=== PATIENT | male | born 1945 | race Caucasian/White ===

== ENCOUNTER 2020-07-08 16:47 | Inpatient (IN) ==
[2020-07-08 17:14] LABS: Basophils % (auto) 1.9 %; Eosinophils # (auto) 0.11 K/uL (0-0.5); Eosinophils % (auto) 2.1 %; Hematocrit (blood only) 40.2 % (42-52); Hemoglobin 13.9 g/dL (14.0-18.0); Immature Granulocytes # (auto) 0.01 K/uL (0.00-0.02); Immature Granulocytes % (auto) 0.2 %; Lymphocytes # (auto) 1.32 K/uL (1.2-3.4); Mean Corpuscular Hemoglobin 31.7 pg (25-34); Mean Corpuscular Hgb Conc 34.6 g/dL (32-36); Mean Corpuscular Volume 91.6 fL (80-100); Monocytes # (auto) 0.39 K/uL (0.11-0.59); Monocytes % (auto) 7.4 %; Neutrophils # (auto) 3.34 K/uL (1.4-6.5); Neutrophils % (auto) 63.4 %; Platelet Count 178 K/uL (130-400); RDW Coefficient of Variation 13.4 % (11.5-14.5); RDW Standard Deviation 44.6 fL (36.4-46.3); Red Blood Count 4.39 M/uL (4.7-6.1); White Blood Count 5.27 K/uL (4.8-10.8)
[2020-07-08 17:46] LABS: Alanine Aminotransferase 41 U/L (12-78); Albumin Globulin Ratio 1.2 (0.9-2); Albumin Level 4.3 gm/dl (3.4-5.0); Alkaline Phosphatase 266 U/L (45-117); Aspartate Aminotransferase 30 U/L (15-37); BUN Creatinine Ratio 13.4 (10-20); Bilirubin,Total 0.6 mg/dl (0.2-1); Blood Urea Nitrogen 61 mg/dl (7-18); Carbon Dioxide 17 mmol/L (21-32); Chloride 107 mmol/L (98-107); Creatinine Clr Calc Pharmacy 14.8 ml/min; Est GFR (African American) 13.6 ml/min; Est GFR (Non-African American) 11.7 ml/min; Globulin 3.5 gm/dl (2.5-4.0); Glucose 86 mg/dl (70-99); Potassium 5.3 mmol/L (3.5-5.1); Sodium 132 mmol/L (136-145); Total Protein 7.8 gm/dl (6.4-8.2)
[2020-07-08] MEDS ORDERED: SODIUM CHLORIDE 0.9% 500 ML IV ONE (18:23)
[2020-07-08 18:54] LABS: Creatine Kinase 98 U/L (39-308)
[2020-07-08 18:59] LABS: Creatine Kinase MB 4.2 ng/ml (0.5-3.6); NT Pro B Type Natriuretic Pept 127 pg/ml (0-1800); Troponin I < 0.015 ng/ml (0-0.045)
--- NOTE | 2020-07-08 19:06 | XRay Report ---
XR chest 1V portable HISTORY: 74 years-old Male Pt c/o SOB acute shortness of breath COMPARISON: CT abdomen 01/13/2010, chest radiograph 04/23/2007. TECHNIQUE: Portable AP view of the chest FINDINGS: Cardiac silhouette is enlarged. Mild chronic interstitial coarsening of the lung bases. No pneumothor ax, large pleural effusion or overt pulmonary edema. Left lung base opacities. Degenerative changes o f the shoulders and spine. IMPRESSION: 1. Mild left lung base opacities are new from comparison suggestive of atelectasis versus pneumonia. 2. Cardiomegaly without pulmonary edema. ACT 112: Negative or not required by law. The above report was generated using voice recognition software. It may contain grammatical, syntax o r spelling errors. Electronically signed by: Garrett Gonzalez M.D. 07/08/2020 7:04 PM
--- NOTE | 2020-07-08 19:40 | History & Physical Report ---
Date of Service July 08, 2020 Assessment & Plan (1) Acute renal failure superimposed on stage 4 chronic kidney disease: (2) Abdominal pain: (3) Hyperkalemia: (4) HTN (hypertension): (5) GERD (gastroesophageal reflux disease): (6) Hyponatremia: DVT PFx, IVFs, Renal eval, CT pending, Bladder scan 31 ml, Hold Lasix and BANDAR. Stress test outpatient History of Present Illness Chief Complaint: Abnormal labs Primary Care Provider: Neil Whitlock, DO 74 yo male c PMH stage 4 CKD, HTN, GERD, and Crohn's who came in sec to abnormal labs. He was having abd pain occasionally c deep breaths in RLQ above his colostomy. He went to his PCP after several days of dealing with these pains and his bloodwork came back and was abnormal with hyperkalemia and acute on chronic renal failure. His Singing Teacher encouraged him to go to the ER. He also had a stress test orderded during his PCP visit. PMH-Crohn's, HTN, GERD, CKD4, Pulm nodule, Hyper PTH, ED PSH-Bowel Resection sec to Crohn's, Appy, Anahi, Inguinal hernia, Colostomy SOC-Quit tob as a teen, rare alcohol FH-Father UC, Mother of Brain Tumor, Sister c Breast CA living Allergies Allergy/AdvReac Type Severity Reaction Status Date / Time oxycodone AdvReac Intermediate MENTAL Verified 07/08/20 18:54 STATUS CHANGES, HALLUCINATIONS Home Medications Medication Instructions Recorded Confirmed Type allopurinol 200 mg PO DAILY 07/08/20 07/08/20 History atenolol 25 mg PO DAILY 07/08/20 07/08/20 History cholecalciferol (vitamin D3) 50 mcg PO DAILY 07/08/20 07/08/20 History [Vitamin D3] cholestyramine (with sugar) See Rx Instructions .ROUTE .COMPLEX 07/08/20 07/08/20 History furosemide 10 mg PO 3XWK 07/08/20 07/08/20 History gabapentin See Rx Instructions .ROUTE .COMPLEX 07/08/20 07/08/20 History ketoconazole 1 applic TOPICAL . Q 3 DAYS 07/08/20 07/08/20 History lisinopril 5 mg PO DAILY 07/08/20 07/08/20 History omeprazole 20 mg PO DAILY 07/08/20 07/08/20 History tramadol 50 mg PO Q6 PRN 07/08/20 07/08/20 History Past Med/Surg History Social History Smoking Status: Never smoker Preferred Language: Faroese Feels Safe at Home: Yes Immunizations: Checked Review of Systems Review of Systems: +Abd Pain RLQ near colostomy bag Physical Exam Physical Exam: ROS-No Headache, No Visual Changes, No Nausea, No Vomiting, No Fever, No Chills, No Neck Pain or Stiffness, No Chest Pain, No Palpitations, No SOB, No HA, No Cough, No Sputum, No Wheezing, + Abdominal Pain, No Diarrhea, No Hematemesis, No Hemoptysis, No Unexpected Weight Loss, No Flank pain, No Melena, No Hematochezia, No Frequency, No Urgency, No Burning, No Hematuria, No Rashes, No Diaphoresis. Appetite is Normal Physical Exam Gen-AAO x 3, NAD, Afebrile Head-NCAT, EOMI, PERRLA, Anicteric Sclera, No Posterior Pharyngeal Erythema Neck-Supple, No JVD, No Thyromegaly, No Masses, No LAD, No Bruits Lungs-Clear to Auscultation Bilaterally, No Rales, No Rhonchi, No Wheezing, No Crepitus Chest-No S4, +S1, +S2, No S3, No Murmurs, No Rubs, No Gallops, No Ectopy Abdomen-Soft, Bowel Sounds Present, Non Tender, Non Distended, No Hepatomegaly, No Splenomegaly, No Palpable Masses, No Rebound, No Rigidity, No Guarding, +Colostomy Bag RLQ Musculoskeletal-Full Range of Motion Bilaterally, No CVAT Extremities-No Cyanosis, No Clubbing, No Edema Nuero-Cranial Nerves II-XII grossly intact, Motor WNL, DTRs WNL, Strength WNL, Non Focal Psych-Normal Mood Results & Data Results & Data ([facility]) Vital Signs (Past 12 Hours) Vital Signs Temp Pulse Pulse Resp BP BP Pulse Ox 07/08/20 18:30 72 18 117/66 100 07/08/20 16:50 36.3 C L 60 18 126/71 97 Allergies oxycodone Adverse Reaction (Intermediate, Verified 07/08/20 18:54) MENTAL STATUS CHANGES, HALLUCINATIONS Height/Weight/Isolation Height 5 ft 11 in Weight 82.3 kg Chemistry 07/08/20 16:58 Sodium 132 L Potassium 5.3 H Chloride 107 Carbon Dioxide 17 L Anion Gap 7.0 BUN 61 H Creatinine 4.53 H* Glucose 86 Code Status & VTE Plan VTE Prophylaxis Plan VTE Prophylaxis will be ordered: Yes
[2020-07-08 20:28] LABS: Appearance Urine Clear (Clear); Bilirubin Urine Negative (Negative); Blood Urine Negative (Negative); Color Urine Yellow; Glucose Urine UA Negative (Negative); Ketones Urine Negative (Negative); Leukocyte Esterase Urine Negative (Negative); Nitrite Urine Negative (Negative); Protein Urine Negative (Negative); Urobilinogen Urine Negative (Negative)
--- NOTE | 2020-07-08 20:30 | CT Scan Report ---
ABDOMEN AND PELVIS CT WITHOUT CONTRAST CT DOSE: 388.69 mGy.cm HISTORY: Acute left upper quadrant abdominal pain. Prior total proctocolectomy. Pt c/o LUQ abd pain TECHNIQUE: Multiaxial CT images of the abdomen and pelvis were performed without contrast. A dose lo wering technique was utilized adhering to the principles of ALARA. COMPARISON STUDY: CT abdomen and pelvis 01/13/2010, CT abdomen pelvis 03/29/2007 FINDINGS: The imaged inferior cardiac chambers are unremarkable. Mild bibasilar atelectasis/scarring. 8 mm fissural nodule of the left lung base, image 20 is unchanged from comparison suggestive of renee gn etiology. No pneumatosis or pneumoperitoneum. The unenhanced spleen, adrenal glands, pancreas and liver appear unremarkable. Cholecystectomy. Unremarkable kidneys. No hydronephrosis. Unchanged appearance of the urinary bladder and prostate. No abdominal aortic aneurysm. There is no adenopathy. No bowel obstruction or bowel wall thickening. Postoperative changes of total proctocolectomy redemon strated with right lower quadrant ileostomy. No bowel obstruction or bowel wall thickening. No ascite s or mesenteric inflammation. Unremarkable soft tissues. No acute fracture. Chronic appearing T12 com pression deformity, new from the 2010 comparison IMPRESSION: 1. No acute intra-abdominal or intrapelvic abnormality. 2. Prior cholecystectomy and total proctocolectomy. 3. No bowel obstruction or bowel wall thickening. 4. Likely chronic T12 compression deformity, new from 2010. Additional findings as above. ACT 112: Negative or not required by law. The above report was generated using voice recognition software. It may contain grammatical, syntax o r spelling errors. Electronically signed by: Garrett Gonzalez M.D. 07/08/2020 8:29 PM
[2020-07-08] MEDS ORDERED: ACETAMINOPHEN 325 MG TAB PO PRN (21:09)
[2020-07-08] MEDS ORDERED: traMADol HCL 50 MG TABLET PO PRN (21:09)
[2020-07-08] MEDS: SODIUM CHLORIDE 0.9% 1,000 ML IV SCH (21:52)
[2020-07-08] MEDS: CHOLESTYRAMINE LIGHT 4 GM PKT PO SCH (21:52)
[2020-07-08] MEDS: GABAPENTIN 800 MG TAB PO SCH (21:53)
[2020-07-08] MEDS: HEPARIN SOD 5,000 UNIT/0.5 ML VIAL SQ SCH (21:53)
--- NOTE | 2020-07-08 23:02 | Emergency Department Note ---
Impression & Plan Acute renal failure superimposed on stage 4 chronic kidney disease, Abdominal pain, Hyperkalemia ED Provider Note NAME: LUCA HARTMAN AGE: 74 SEX: M : 1945 ARRIVES VIA: Walk-In INFORMANT: Patient, ED PROVIDER(S): Kenny Isidro MD CHIEF COMPLAINT: abnormal Labwork HPI: This 74-year-old male who presents emergency department complaining of abnormal lab work. The patient was to have a stress test because he has been having right lower quadrant abdominal pain that has been ongoing for the past 2 weeks anytime the patient exerts himself. He had outpatient laboratory testing done and was found to be in acute renal failure. The patient himself has currently no complaints although he reports abdominal pain anytime he exerts himself. He reports the pain gets better with rest. He has not taken anything for the pain prior to coming to the emergency department. ROS: See above HPI for pertinent positives & negatives. A total of 10 systems reviewed and were otherwise negative. PAST MEDICAL HISTORY: See Below PAST SURGICAL HISTORY: See Below FAMILY HISTORY: See Below SOCIAL HISTORY: See Below HOME MEDICATIONS: See Below ALLERGIES: See Below VITALS: See Below PHYSICAL EXAMINATION: VITAL SIGNS - Vital signs and nursing notes were reviewed. GENERAL - 74-year-old male appearing stated age who is in no acute distress. Communicates well with provider and answers questions appropriately. SKIN - Without rashes. HEAD - NC/AT. EYES - PERRL with EOMI bilaterally. Sclera anicteric. Palpebral conjunctiva pink and moist with no injection noted. EARS - No deformities of external structures noted on gross examination bilaterally. NOSE - Midline and without cyanosis. No epistaxis or purulent drainage noted. Septum midline without deviation or septal hematoma noted. MOUTH/OROPHARYNX - Without perioral cyanosis. Buccal mucosa pink and moist and without leukoplakia. Tongue midline with equal elevation of palate bilaterally. No tonsillar hypertrophy, erythema, or exudates noted. NECK - Neck with FROM. Supple to palpation. No nuchal rigidity. LUNGS - Chest wall symmetric without accessory muscle use, intercostals retractions, or central cyanosis. Normal vesicular breath sounds CTA B/L. No wheezes, rales, or rhonchi appreciated. CARDIAC - RRR with S1/S2. No murmur, rubs, or gallops appreciated. ABDOMEN - Abdominal contour without pulsations or visible masses. BS normoactive all four quadrants. No tenderness, palpable masses, hepatosplenomegaly, or ascites noted. EXTREMITIES - No clubbing or peripheral cyanosis. No pretibial edema present. +3/5 radial, posterior tibial, and dorsalis pedis pulses palpated throughout. +5/5 strength noted in UE/LE bilaterally. NEUROLOGIC - Cranial nerves II through XII grossly intact. Sensory intact to light touch throughout. Patellar reflexes +2/4. PSYCH - A&Ox3 and cooperates fully with examiner. Pt is very pleasant and interacts well with examiner. MEDICAL DECISION MAKING: Patient was seen and evaluated as above in room A12. Review was performed of nursing notes and vital signs. I did review pertinent previous visits and patient history. After obtaining a thorough history and physical examination the above work up was performed. This 74-year-old male who presents emergency department complaining of abnormal laboratory work. Patient was found to have significantly elevated creatinine compared to his baseline. He was sent in by his kidney doctor. He was given a 500 cc of fluid here. I did discuss the case with the hospitalist service who did agree to meet the patient. An order was placed for continuous cardiac monitoring. The monitor shows a rate of 63 with Normal SInus rhythm. The patient was evaluated during a period of high volume and high acuity during the global COVID-19 pandemic, and that diagnosis was suspected/considered upon their initial presentation. Their evaluation, treatment and testing was consistent with current guidelines for patients who present with complaints or symptoms that may be related to COVID-19. Patient was seen while provider was wearing PPE. Triage Nursing notes reviewed. Prior medical records reviewed Vital Signs: reviewed and remarkable for no significant abnormalities Differential diagnosis: Infection, dehydration, metabolic abnormality, hypo/hyperglycemia, electrolyte disturbance, anemia, hypoxia, cardiac sources, intracerebral event, toxicologic, neurologic, as well as other pathologies. ER treatment provided: See below Diagnostics interpreted by me: ECG: EKG shows a sinus bradycardia no ST elevation or depression QTC is 392 ventricular rate is 54 EKG is compared to 04/23/2007 ventricular rate has decreas ed by 28. Laboratory studies: As stated above and show below. Imaging studies: See below Consultation(s): Internal Medicine Past Med/Surg History Social History Smoking Status: Former smoker Smoking End Date: smoked in his teens.; Second Hand Exposure: No; Do You Dip or Chew Tobacco: No; Tobacco Cessation Education Requested by Patient: No Hx Alcohol Use: Yes Alcohol type: beer Hx Substance Use: No Preferred Language: Iranian Communication Ability: Effective Health Services Administrator Required: No Beliefs That Will Affect Care: None Current Living Situation: Spouse Current Living Situation Comment: Lives with . Other Information That Helps Us Care for You: No Feels Safe at Home: Yes Safety Concerns: Feels Safe At This Time Assistive Devices: Glasses Allergies Allergies Allergy/AdvReac Type Severity Reaction Status Date / Time oxycodone AdvReac Intermediate MENTAL Verified 07/08/20 18:54 STATUS CHANGES, HALLUCINATIONS Home Meds Home Medications Medication Instructions Recorded Confirmed allopurinol 200 mg PO DAILY 07/08/20 07/08/20 atenolol 25 mg PO DAILY 07/08/20 07/08/20 cholecalciferol (vitamin D3) 50 mcg PO DAILY 07/08/20 07/08/20 [Vitamin D3] cholestyramine (with sugar) See Rx Instructions .ROUTE .COMPLEX 07/08/20 07/08/20 furosemide 10 mg PO 3XWK 07/08/20 07/08/20 gabapentin See Rx Instructions .ROUTE .COMPLEX 07/08/20 07/08/20 ketoconazole 1 applic TOPICAL . Q 3 DAYS 07/08/20 07/08/20 lisinopril 5 mg PO DAILY 07/08/20 07/08/20 omeprazole 20 mg PO DAILY 07/08/20 07/08/20 tramadol 50 mg PO Q6 PRN 07/08/20 07/08/20 Results & Data (ED) Vital Signs Vital Signs - 24 hr 07/08/20 16:50 07/08/20 18:16 07/08/20 18:30 Temperature 36.3 C L Temperature Source Temporal Artery Scan Pulse Rate 60 58 L Pulse Rate [Apical] 72 Pulse Rate from SpO2 Sensor 60 Pulse Rhythm [Apical] Regular Pulse Strength [Apical] Normal Respiratory Rate 18 20 18 Respiratory Effort / Characteristics Non-Labored Spontaneous Respiratory Depth Normal Blood Pressure 126/71 112/62 Blood Pressure [Right Arm] 117/66 Blood Pressure Mean 89 78 Blood Pressure Mean [Right Arm] 83 Blood Pressure Position [Right Arm] Semi-fowlers Pulse Oximetry 97 98 100 Oxygen Delivery Method Room Air Room Air Nasal Cannula Sepsis Recent Fever Within 48 Hours No Sepsis New/Unexplained Change in Mental Status N/A Sepsis Action Taken by Nursing No Action Required 07/08/20 18:31 07/08/20 18:49 Temperature Temperature Source Pulse Rate 56 L 53 L Pulse Rate [Apical] Pulse Rate from SpO2 Sensor 55 L 53 L Pulse Rhythm [Apical] Pulse Strength [Apical] Respiratory Rate 12 17 Respiratory Effort / Characteristics Respiratory Depth Blood Pressure 117/61 Blood Pressure [Right Arm] Blood Pressure Mean 79 Blood Pressure Mean [Right Arm] Blood Pressure Position [Right Arm] Pulse Oximetry 99 99 Oxygen Delivery Method Sepsis Recent Fever Within 48 Hours Sepsis New/Unexplained Change in Mental Status Sepsis Action Taken by Jail Medications Current Medication List: was personally reviewed by me Laboratory Data Attestation: I reviewed the patient's lab results. Result diagrams: 07/08/20 16:58 07/08/20 16:58 Lab Results 07/08/20 07/08/20 Range/Units 16:58 16:58 WBC 5.27 (4.8-10.8) K/uL RBC 4.39 L (4.7-6.1) M/uL Hgb 13.9 L (14.0-18.0) g/dL Hct 40.2 L (42-52) % MCV 91.6 (80-100) fL MCH 31.7 (25-34) pg MCHC 34.6 (32-36) g/dL RDW Std Deviation 44.6 (36.4-46.3) fL RDW Coeff of Doyle 13.4 (11.5-14.5) % Plt Count 178 (130-400) K/uL MPV 10.0 (7.4-10.4) fL Immature Gran % (Auto) 0.2 % Neut % (Auto) 63.4 % Lymph % (Auto) 25.0 % [place] % (Auto) 7.4 % Eos % (Auto) 2.1 % Baso % (Auto) 1.9 % Neut # (Auto) 3.34 (1.4-6.5) K/uL Lymph # (Auto) 1.32 (1.2-3.4) K/uL [place] # (Auto) 0.39 (0.11-0.59) K/uL Eos # (Auto) 0.11 (0-0.5) K/uL Baso # (Auto) 0.10 (0-0.2) K/uL Immature Gran # (Auto) 0.01 (0.00-0.02) K/uL Sodium 132 L (136-145) mmol/L Potassium 5.3 H (3.5-5.1) mmol/L Chloride 107 (98-107) mmol/L Carbon Dioxide 17 L (21-32) mmol/L Anion Gap 7.0 (3-11) BUN 61 H (7-18) mg/dl Creatinine 4.53 H* (0.6-1.4) mg/dl Est Cr Clr Drug Dosing 14.8 ml/min Est GFR ( Amer) 13.6 ml/min Est GFR (Non-Af Amer) 11.7 ml/min BUN/Creatinine Ratio 13.4 (10-20) Glucose 86 (70-99) mg/dl Calcium 9.0 (8.5-10.1) mg/dl Total Bilirubin 0.6 (0.2-1) mg/dl AST 30 (15-37) U/L ALT 41 (12-78) U/L Alkaline Phosphatase 266 H (45-117) U/L Total Creatine Kinase 98 (39-308) U/L CK-MB (CK-2) 4.2 H (0.5-3.6) ng/ml CK/CKMB % Calc 4.3 H (0-3.0) Troponin I < 0.015 (0-0.045) ng/ml NT-Pro-B Natriuret Pep 127 (0-1800) pg/ml Total Protein 7.8 (6.4-8.2) gm/dl Albumin 4.3 (3.4-5.0) gm/dl Globulin 3.5 (2.5-4.0) gm/dl Albumin/Globulin Ratio 1.2 (0.9-2) Administered Medications Cholestyramine Resin (Cholestyramine Light 4 Gm Pkt) 2 gm PO DAILY@2200 AMERICO; Protocol Stop: 08/07/20 21:59 Last Admin: 07/08/20 21:52 Dose: 2 gm Documented by: [id number] Gabapentin (Gabapentin 800 Mg Tab) 1,600 mg PO AMERICO Stop: 08/07/20 21:59 Last Admin: 07/08/20 21:53 Dose: 1,600 mg Documented by: [id number] Heparin Sodium (Porcine) (Heparin Sod 5,000 Unit/0.5 Ml Vial) 5,000 units SQ Q8 AMERICO Stop: 08/07/20 21:59 Last Admin: 07/08/20 21:53 Dose: 5,000 units Documented by: [id number] Sodium Chloride (Nss 1000ml) 1,000 mls @ 80 mls/hr IV .[id number] AMERICO Stop: 08/07/20 21:08 Last Admin: 07/08/20 21:52 Dose: 80 mls/hr Documented by: [id number] Discontinued Medications Sodium Chloride (Nss 1000ml) 500 mls @ 999 mls/hr IV .Q31M ONE Stop: 07/08/20 18:53 Last Infusion: 07/08/20 19:04 Dose: 0 mls/hr Documented by: [id number] Admin: 07/08/20 18:38 Dose: 999 mls/hr Documented by: [id number] Imaging Data Attestation: I personally reviewed and interpreted this imaging study as follows: Radiologist's Impression: Abdomen/Pelvis CT 07/08/20 18:[address] WITHOUT CONTRAST CT DOSE: 388.69 mGy.cm HISTORY: Acute left upper quadrant abdominal pain. Prior total proctocolectomy. Pt c/o LUQ abd pain TECHNIQUE: Multiaxial CT images of the abdomen and pelvis were performed without contrast. A dose lowering technique was utilized adhering to the principles of ALARA. COMPARISON STUDY: CT abdomen and pelvis 01/13/2010, CT abdomen pelvis 03/29/2007 FINDINGS: The imaged inferior cardiac chambers are unremarkable. Mild bibasilar atelectasis/scarring. 8 mm fissural nodule of the left lung base, image 20 is unchanged from comparison suggestive of benign etiology. No pneumatosis or pneumoperitoneum. The unenhanced spleen, adrenal glands, pancreas and liver appear unremarkable. Cholecystectomy. Unremarkable kidneys. No hydronephrosis. Unchanged appearance of the urinary bladder and prostate. No abdominal aortic aneurysm. There is no adenopathy. No bowel obstruction or bowel wall thickening. 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 No bowel obstruction or bowel wall thickening. No ascites or mesenteric inflammation. Unremarkable soft tissues. No acute fracture. Chronic appearing T12 compression deformity, new from the 2009 comparison IMPRESSION: 1. No acute intra-abdominal or intrapelvic abnormality. 2. Prior cholecystectomy and total proctocolectomy. 3. No bowel obstruction or bowel wall thickening. 4. Likely chronic T12 compression deformity, new from 2009. Additional findings as above. ACT 112: Negative or not required by law. The above report was generated using voice recognition software. It may contain grammatical, syntax or spelling errors. Electronically signed by: Garrett Gonzalez M.D. 07/08/2020 8:29 PM Chest X-Ray 07/08/20 18:25 XR chest 1V portable HISTORY: 74 years-old Male Pt c/o SOB acute shortness of breath COMPARISON: CT abdomen 01/13/2010, chest radiograph 04/23/2007. TECHNIQUE: Portable AP view of the chest FINDINGS: Cardiac silhouette is enlarged. Mild chronic interstitial coarsening of the lung bases. No pneumothorax, large pleural effusion or overt pulmonary edema. Left lung base opacities. Degenerative changes of the shoulders and spine. IMPRESSION: 1. Mild left lung base opacities are new from comparison suggestive of atelect asis versus pneumonia. 2. Cardiomegaly without pulmonary edema. ACT 112: Negative or not required by law. The above report was generated using voice recognition software. It may contain grammatical, syntax or spelling errors. Electronically signed by: Garrett Gonzalez M.D. 07/08/2020 7:04 PM Discharge Plan Visit Data Chief Complaint: Abnormal Labs/Diagnostic Testing Stated Complaint: ABNORMAL BLOOD WORK @ DOC TODAY ED Provider: Kenny Isidro Discharge Problem: Acute renal failure superimposed on stage 4 chronic kidney disease, Abdominal pain, Hyperkalemia Patient Disposition: Admitted As Inpatient Discharge Instructions Interventions: ED Discharge Assessment Last Done: 07/08/20 20:48 Discharge Problem: Acute renal failure superimposed on stage 4 chronic kidney disease Qualifiers: Acute renal failure type: unspecified Qualified Code(s): N17.9 - Acute kidney failure, unspecified Abdominal pain Qualifiers: Abdominal location: unspecified location Qualified Code(s): R10.9 - Unspecified abdominal pain
[2020-07-09] MEDS: HEPARIN SOD 5,000 UNIT/0.5 ML VIAL SQ SCH ×3 (06:06→20:08)
[2020-07-09 07:24] LABS: Hematocrit (blood only) 36.1 % (42-52); Hemoglobin 12.5 g/dL (14.0-18.0); Mean Corpuscular Hemoglobin 31.9 pg (25-34); Mean Corpuscular Hgb Conc 34.6 g/dL (32-36); Mean Corpuscular Volume 92.1 fL (80-100); Platelet Count 141 K/uL (130-400); RDW Coefficient of Variation 13.4 % (11.5-14.5); RDW Standard Deviation 45.2 fL (36.4-46.3); Red Blood Count 3.92 M/uL (4.7-6.1); White Blood Count 3.91 K/uL (4.8-10.8)
[2020-07-09 07:57] LABS: BUN Creatinine Ratio 16.8 (10-20); Calcium 8.1 mg/dl (8.5-10.1); Est GFR (African American) 20.4 ml/min; Est GFR (Non-African American) 17.6 ml/min; Potassium 4.8 mmol/L (3.5-5.1)
[2020-07-09] MEDS: SODIUM CHLORIDE 0.9% 1,000 ML IV SCH (09:18)
[2020-07-09] MEDS: ATENOLOL 25 MG TABLET PO SCH (09:22)
[2020-07-09] MEDS: PANTOprazole 40 MG TAB PO SCH (09:22)
[2020-07-09] MEDS: GABAPENTIN 800 MG TAB PO SCH ×3 (09:22→20:08)
[2020-07-09] MEDS: CHOLECALCIFEROL 1,000 UNITS 25 MCG TAB PO SCH (09:22)
[2020-07-09] MEDS: allopurinoL 100 MG TAB PO SCH (09:23)
[2020-07-09] MEDS: CHOLESTYRAMINE LIGHT 4 GM PKT PO SCH ×2 (09:24→20:09)
--- NOTE | 2020-07-09 09:36 | Nephrology Consultation ---
Date of Consultation July 09, 2020 Assessment & Plan (1) Acute renal failure superimposed on stage 4 chronic kidney disease: initially suspected prerenal etiology given recent close outpatient GI follow-up for ileostomy diarrhea. however diarrhea improved and pt bothered mostly by spells of odd pain/dyspnea as per HPI. ? if odd sx are from compression frx -continue to avoid nephrotoxins, including OP lisinopril, lasix -needs strict I/O including tracking ostomy output -daily bmp but given rapid improvement with fluids will recheck bmp as well later today > may be able to be d/c w/ close OP f/u if adequately improved -do not believe GI eval needed at this time ? if indication for TTE or CT chest w/ odd dyspnea but defer to primary Present on Admission?: Yes (2) Disorders of fluid, electrolyte, and acid-base balance: Hyperchloremic metabolic acidosis emerging in the setting of ileostomy and normal saline resuscitation. Hyperkalemia resolved; mild hyponatremia improving. Change normal saline to bicarb gtt for moment at 125 ml/hr Present on Admission?: Yes History of Present Illness Reason for Consultation: Acute on chronic renal failure, abnormal electrolytes Requesting Physician: Dr. Szymanski Attending Physician: Sebastián Gil MD History of Present Illness 74-year-old male whom I am asked to evaluate for acute on chronic renal failure and abnormal serum chemistries was admitted last evening after I sent him to the emergency department to evaluate these lab abnormalities. His presenting creatinine was 4.5, improved to 3.2 this morning. Presenting potassium 5.3, improved to 4.8 this morning. Of note, outpatient potassium was 5.7. Bicarb values unchanged in the mid teens since presentation. Serum sodium was 132 on presentation up to 135 this morning. Labs have been drawn by PCP with whom patient sought acute visit after noting several days of right lower quadrant supra ileostomy abdominal pain particularly with deep inspiration. Past medical history includes stage IV CKD with a rather labile outpatient baseline creatinine of about 2, hypertension, Crohn's disease off of all meds since 2007 proctocolectomy w/ permanent ileostomy, GERD. He is currently receiving normal saline at 80 mL hourly. He had 1 L normal saline in the emergency department. The patient had recently been following with GI closely recently for diarrhea via ileostomy but states this has considerably improved past few weeks w/ questran dosing. he does note some concerning sx of weakness and atypical dyspnea. he can walk up hill w/o dyspnea but if he stands to do work he "has no strength" and gets out of breath. 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 no n/v, no diaphoresis, no edema, no decreased uop or po intake; no cough or orthopnea or wt change. Allergies Allergy/AdvReac Type Severity Reaction Status Date / Time oxycodone AdvReac Intermediate MENTAL Verified 07/08/20 18:54 STATUS CHANGES, HALLUCINATIONS Home Medications Medication Instructions Recorded Confirmed Type allopurinol 200 mg PO DAILY 07/08/20 07/08/20 History atenolol 25 mg PO DAILY 07/08/20 07/08/20 History cholecalciferol (vitamin D3) 50 mcg PO DAILY 07/08/20 07/08/20 History [Vitamin D3] cholestyramine (with sugar) See Rx Instructions .ROUTE .COMPLEX 07/08/20 07/08/20 History furosemide 10 mg PO 3XWK 07/08/20 07/08/20 History gabapentin See Rx Instructions .ROUTE .COMPLEX 07/08/20 07/08/20 History ketoconazole 1 applic TOPICAL . Q 3 DAYS 07/08/20 07/08/20 History lisinopril 5 mg PO DAILY 07/08/20 07/08/20 History omeprazole 20 mg PO DAILY 07/08/20 07/08/20 History tramadol 50 mg PO Q6 PRN 07/08/20 07/08/20 History Patient History Medical History Chronic kidney disease, stage IV (severe) Crohn's disease No active Crohn's since proctocolectomy and not on medication since 2009. Last verified on December 2019 GI scope GERD (gastroesophageal reflux disease) HTN (hypertension) Ileostomy present Permanent; 2007 Uric acid nephrolithiasis One-time stone episode 2010 Surgical History Hx of appendectomy Status post proctocolectomy 2008 with permanent ileostomy Family History Sister Cancer Breast cancer Grandfather No problems noted. Father Ulcerative colitis Social History Smoking Status: Former smoker Smoking End Date: smoked in his teens.; Second Hand Exposure: No; Do You Dip or Chew Tobacco: No; Tobacco Cessation Education Requested by Patient: No Hx Alcohol Use: Yes Alcohol type: beer Hx Substance Use: No Preferred Language: Georgian Communication Ability: Effective Radio Assembler Required: No Beliefs That Will Affect Care: None marital status: Current Living Situation: Spouse Current Living Situation Comment: Lives with . Other Information That Helps Us Care for You: No Feels Safe at Home: Yes Safety Concerns: Feels Safe At This Time Assistive Devices: Glasses Review of Systems Review of Systems: All systems reviewed & are unremarkable except as noted in HPI & below Physical Exam Constitutional: well developed, well nourished, cooperative and comfortable; no acute distress Eyes: EOM intact bilaterally ENMT: Ears: no external ear abnormality Nose: no external nose abnormality Mouth: + dry oral mucous membranes Neck: no nuchal rigidity Respiratory: normal respiratory effort Auscultation: lungs clear to auscultation bilaterally and + diminished lung sounds Cardiovascular: RRR, no murmur, no edema Gastrointestinal (Abdomen): Inspection/Auscultation: normal bowel sounds; abdomen not distended Percussion/Palpation: abdomen soft; abdomen nontender ileostomy RLQ Musculoskeletal: Extremities: strength 5/5 throughout Skin: no rashes, warm and dry Neurologic: givens, fluent speech, no tremor Psychiatric: A+Ox3, euthymic affect Insight: good insight Judgement: good judgement Results & Data ([facility]) Vital Signs (Past 12 Hours) Vital Signs Temp Pulse Pulse Resp BP BP Pulse Ox 07/09/20 07:37 36.3 C L 74 18 120/68 96 07/08/20 22:50 36.2 C L 63 17 103/62 96 07/08/20 21:17 36.6 C 66 18 118/68 96 Laboratory Results 07/09/20 07:10 07/09/20 07:10 Admission urinalysis: Clear yellow urine with a pH of 5 and specific gravity 1010; dipstick indices bland Diagnostic Findings Admission chest x-ray 1. Mild left lung base opacities are new from comparison suggestive of atelectasis versus pneumonia. 2. Cardiomegaly without pulmonary edema. CT abdomen pelvis admission noncontrast FINDINGS: The imaged inferior cardiac chambers are unremarkable. Mild bibasilar atelectasis/scarring. 8 mm fissural nodule of the left lung base, image 20 is unchanged from comparison suggestive of benign etiology. No pneumatosis or pneumoperitoneum. The unenhanced spleen, adrenal glands, pancreas and liver appear unremarkable. Cholecystectomy. Unremarkable kidneys. No hydronephrosis. Unchanged appearance of the urinary bladder and prostate. No abdominal aortic aneurysm. There is no adenopathy. No bowel obstruction or bowel wall thickening. 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 No bowel obstruction or bowel wall thickening. No ascites or mesenteric inflammation. Unremarkable soft tissues. No acute fracture. Chronic appearing T12 compression deformity, new from the 2010 comparison IMPRESSION: 1. No acute intra-abdominal or intrapelvic abnormality. 2. Prior cholecystectomy and total proctocolectomy. 3. No bowel obstruction or bowel wall thickening. 4. Likely chronic T12 compression deformity, new from 2010. Additional findings as above. (1) Acute renal failure superimposed on stage 4 chronic kidney disease Acute renal failure type: unspecified Qualified Code(s): N17.9 - Acute kidney failure, unspecified; N18.4 - Chronic kidney disease, stage 4 (severe)
[2020-07-09] MEDS ORDERED: SODIUM BICARBONATE 8.4% 150 MEQ in DEXTROSE 5% 1,000 ML IV STA (09:49)
--- NOTE | 2020-07-09 11:30 | Electrocardiogram Report ---
Test Reason : Blood Pressure : / mmHG Vent. Rate : 054 BPM Atrial Rate : 054 BPM P-R Int : 192 ms QRS Dur : 102 ms QT Int : 414 ms P-R-T Axes : 052 -18 058 degrees QTc Int : 392 ms Sinus bradycardia Otherwise normal ECG When compared with ECG of 23-APR-2007 23:13, Vent. rate has decreased BY 28 BPM Questionable change in QRS axis QT has shortened Confirmed by Leonel Chowdhury ([id number]) on 07/09/2020 11:30:06 AM Referred By: Neil Whitlock Confirmed By:Rob Chowdhury
[2020-07-09] MEDS: SODIUM BICARBONATE 8.4% 150 MEQ in DEXTROSE 5% 1,000 ML IV SCH ×2 (14:14→23:49)
--- NOTE | 2020-07-09 14:40 | Hospitalist Progress Note ---
Date of Service July 09, 2020 Assessment & Plan (1) Acute renal failure superimposed on stage 4 chronic kidney disease: (2) Hyperkalemia: likely Prerenal etiology from recent high Ileostomy output improving with IV fluids Crea down from 4 to 3 K 5.2 --> back to normal continue IV NSS monitor closely appreciate Nephro service recommendations (3) Abdominal pain: likely referred pain from T11 Fracture obtain Thoracic spine MRI (4) HTN (hypertension): continue Atenolol (5) GERD (gastroesophageal reflux disease): continue Protonix Disposition anticipate d/c home when medically stable Admission and Anticipated Discharge Date Admission Date: July 08, 2020 Subjective ff up for acute renal failure on CKD seen resting in bed, comfortable states he feels fine overall no problems urinating ileostomy output has bulked up since starting Questran 2-3 weeks ago has intermittent upper back pain, radiating to RUQ no neuro deficits no other symptoms Review of Systems Review of Systems: All systems reviewed & are unremarkable except as noted in Subjective Physical Exam Physical Exam: General- oriented x 3, not in distress, speaks in sentences with no effort or accessory muscle use Head- atraumatic Eyes- PERRL, EOMI, anicteric ENT- oropharynx clear Neck- supple, no JVD, no adenopathy, no thyromegaly; carotids +2/2, no bruits appreciated Lungs- clear to auscultation bilaterally, no rales/wheezes Heart- normal rate, regular rhythm; no murmur, no gallop, no rub appreciated Abdomen- normal bowel sounds, nondistended, soft, nontender, no masses or hepatosplenomegaly no Masterson's sign no CVA tenderness Colostomy: no signs of infection, brown semiformed stool Extremities- no pretibial edema, no calf tenderness; peripheral pulses intact Neuro- alert, oriented x 3; CN 2-12 grossly intact; motor 5/5 bilaterally;sensation 100% on all extremities; no other gross focal neurologic deficits Skin- warm & dry Results & Data Results & Data ([facility]) Vital Signs (Past 12 Hours) Vital Signs Temp Pulse Resp BP Pulse Ox 07/09/20 07:37 36.3 C L 74 18 120/68 96 all noted and reviewed including below Laboratory Results Laboratory Results - last 24 hr 07/08/20 07/08/20 07/08/20 16:58 16:58 20:07 WBC 5.27 RBC 4.39 L Hgb 13.9 L Hct 40.2 L MCV 91.6 MCH 31.7 MCHC 34.6 RDW Std Deviation 44.6 RDW Coeff of Doyle 13.4 Plt Count 178 MPV 10.0 Immature Gran % (Auto) 0.2 Neut % (Auto) 63.4 Lymph % (Auto) 25.0 E[place] % (Auto) 7.4 Eos % (Auto) 2.1 Baso % (Auto) 1.9 Neut # (Auto) 3.34 Lymph # (Auto) 1.32 Eaton # (Auto) 0.39 Eos # (Auto) 0.11 Baso # (Auto) 0.10 Immature Gran # (Auto) 0.01 Sodium 132 L Potassium 5.3 H Chloride 107 Carbon Dioxide 17 L Anion Gap 7.0 BUN 61 H Creatinine 4.53 H* Est Cr Clr Drug Dosing 14.8 Est GFR ( Amer) 13.6 Est GFR (Non-Af Amer) 11.7 BUN/Creatinine Ratio 13.4 Glucose 86 Calcium 9.0 Total Bilirubin 0.6 AST 30 ALT 41 Alkaline Phosphatase 266 H Total Creatine Kinase 98 CK-MB (CK-2) 4.2 H CK/CKMB % Calc 4.3 H Troponin I < 0.015 NT-Pro-B Natriuret Pep 127 Total Protein 7.8 Albumin 4.3 Globulin 3.5 Albumin/Globulin Ratio 1.2 Urine Color Yellow Urine Appearance Clear Urine pH 5.0 Ur Specific [place] 1.010 Urine Protein Negative Urine Glucose (UA) Negative Urine Ketones Negative Urine Blood Negative Urine Nitrite Negative Urine Bilirubin Negative Urine Urobilinogen Negative Ur Leukocyte Esterase Negative COVID-19 Eval Order SARS-CoV-2 (PCR) 07/08/20 07/08/20 07/09/20 Unknown Unknown 07:10 WBC 3.91 L RBC 3.92 L Hgb 12.5 L Hct 36.1 L MCV 92.1 MCH 31.9 MCHC 34.6 RDW Std Deviation 45.2 RDW Coeff of Doyle 13.4 Plt Count 141 MPV 10.0 Immature Gran % (Auto) Neut % (Auto) Lymph % (Auto) [place] % (Auto) Eos % (Auto) Baso % (Auto) Neut # (Auto) Lymph # (Auto) [place] # (Auto) Eos # (Auto) Baso # (Auto) Immature Gran # (Auto) Sodium Potassium Chloride Carbon Dioxide Anion Gap BUN Creatinine Est Cr Clr Drug Dosing Est GFR ( Amer) Est GFR (Non-Af Amer) BUN/Creatinine Ratio Glucose Calcium Total Bilirubin AST ALT Alkaline Phosphatase Total Creatine Kinase CK-MB (CK-2) CK/CKMB % Calc Troponin I NT-Pro-B Natriuret Pep Total Protein Albumin Globulin Albumin/Globulin Ratio Urine Color Urine Appearance Urine pH Ur Specific [place] Urine Protein Urine Glucose (UA) Urine Ketones Urine Blood Urine Nitrite Urine Bilirubin Urine Urobilinogen Ur Leukocyte Esterase COVID-19 Eval Order Covid19 at [facility] SARS-CoV-2 (PCR) NEGATIVE 07/09/20 07:10 WBC RBC Hgb Hct MCV MCH MCHC RDW Std Deviation RDW Coeff of Doyle Plt Count MPV Immature Gran % (Auto) Neut % (Auto) Lymph % (Auto) [place] % (Auto) Eos % (Auto) Baso % (Auto) Neut # (Auto) Lymph # (Auto) [place] # (Auto) Eos # (Auto) Baso # (Auto) Immature Gran # (Auto) Sodium 135 L Potassium 4.8 Chloride 111 H Carbon Dioxide 16 L Anion Gap 8.0 BUN 54 H Creatinine 3.24 H D Est Cr Clr Drug Dosing 20.0 Est GFR ( Amer) 20.4 Est GFR (Non-Af Amer) 17.6 BUN/Creatinine Ratio 16.8 Glucose 104 H Calcium 8.1 L Total Bilirubin AST ALT Alkaline Phosphatase Total Creatine Kinase CK-MB (CK-2) CK/CKMB % Calc Troponin I NT-Pro-B Natriuret Pep Total Protein Albumin Globulin Albumin/Globulin Ratio Urine Color Urine Appearance Urine pH Ur Specific [place] Urine Protein Urine Glucose (UA) Urine Ketones Urine Blood Urine Nitrite Urine Bilirubin Urine Urobilinogen Ur Leukocyte Esterase COVID-19 Eval Order SARS-CoV-2 (PCR) (1) Acute renal failure superimposed on stage 4 chronic kidney disease Acute renal failure type: unspecified Qualified Code(s): N17.9 - Acute kidney failure, unspecified; N18.4 - Chronic kidney disease, stage 4 (severe) (2) Abdominal pain Abdominal location: unspecified location Qualified Code(s): R10.9 - Unspecified abdominal pain
--- NOTE | 2020-07-09 17:17 | Magnetic Resonance Report ---
THORACIC SPINE MRI HISTORY: t11 fracture, back pain TECHNIQUE: Multiplanar multisequence MRI of the thoracic spine was performed without the use of contr ast. COMPARISON: Abdomen and pelvis CT 07/08/2020. FINDINGS: No significant central canal narrowing. The thoracic spinal cord is normal in course, caliber, and si gnal intensity. Mild to moderate anterior wedging at T12 with mild inferior endplate edema. This favo rs a subacute on chronic inferior endplate compression fracture. This demonstrates up to 50% loss of height anteriorly. No associated retropulsion. There is mild disc space narrowing throughout the thor acic spine. There is also a moderate to severe anterior wedge-shaped compression deformity at T5 with mild edema along the inferior endplate. This also favors a subacute to chronic fracture. Small focal areas of endplate edema at the inferior endplate of T7 to superior endplate of T8 favor Schmorl's no renan. Tiny compression fractures could also a similar appearance. There are similar-appearing T1 and T 2 hyperintense lesions at T7 and T11 which measure 9 mm. These favor Schmorl's nodes. Paraspinal santy a at T6-T7 may be due to the large osteophytes at this location. IMPRESSION: 1. Subacute to chronic inferior endplate compression fractures at T5 and T12 as described above. No a ssociated retropulsion. 2. Focal areas of endplate edema at the inferior endplate of T7 and superior endplate of T8. These fa vor small Schmorl's nodes. Small compression fractures could also have a similar appearance but are c onsidered less likely. 3. No significant central canal narrowing. ACT 112: Negative or not required by law. Electronically signed by: Ariel Kelly M.D. 07/09/2020 5:16 PM
[2020-07-09 18:07] LABS: BUN Creatinine Ratio 17.5 (10-20); Calcium 8.5 mg/dl (8.5-10.1); Creatinine Clr Calc Pharmacy 24.8 ml/min; Est GFR (African American) 26.3 ml/min; Est GFR (Non-African American) 22.7 ml/min; Potassium 4.8 mmol/L (3.5-5.1)
[2020-07-10] MEDS: HEPARIN SOD 5,000 UNIT/0.5 ML VIAL SQ SCH ×2 (05:46→15:39)
[2020-07-10] MEDS: CHOLESTYRAMINE LIGHT 4 GM PKT PO SCH (09:01)
[2020-07-10] MEDS: allopurinoL 100 MG TAB PO SCH (09:03)
[2020-07-10] MEDS: CHOLECALCIFEROL 1,000 UNITS 25 MCG TAB PO SCH (09:03)
[2020-07-10] MEDS: PANTOprazole 40 MG TAB PO SCH (09:04)
[2020-07-10] MEDS: ATENOLOL 25 MG TABLET PO SCH (09:04)
[2020-07-10] MEDS: GABAPENTIN 800 MG TAB PO SCH ×2 (09:41→15:40)
[2020-07-10 09:49] LABS: BUN Creatinine Ratio 16.1 (10-20); Calcium 8.7 mg/dl (8.5-10.1); Creatinine Clr Calc Pharmacy 28.7 ml/min; Est GFR (African American) 31.5 ml/min; Est GFR (Non-African American) 27.2 ml/min; Potassium 4.3 mmol/L (3.5-5.1)
--- NOTE | 2020-07-10 10:04 | Nephrology Progress Note ---
Date of Service July 10, 2020 Assessment & Plan (1) Acute renal failure superimposed on stage 4 chronic kidney disease: Continue to suspect prerenal etiology given his clinical response to fluid resuscitation and recent close outpatient GI follow-up for ileostomy diarrhea. however diarrhea improved per patient this is somewhat atypical and pt bothered mostly by spells of odd pain/dyspnea as per HPI. ? if odd sx are from compression frx -continue to avoid nephrotoxins, including OP lisinopril, lasix -needs strict I/O including tracking ostomy output -do not believe GI eval needed at this time ? if indication for TTE or CT chest w/ odd dyspnea but defer to primary>> suspect his symptoms are from thoracic compression fracture Discharge recommendations: -Weekly basic metabolic panel which I will order after discharge X 4 checks Increase fluid intake to 80 ounces daily; this should be WATER primarily not potassium rich fluid like gatorade -f/u w/ any [facility] provider in 4-6 wks CKD clinic (I may not have clinic openings in this timeframe so to see partner in interim if needed; this pt generally follows w/ me in clinic) (2) Disorders of fluid, electrolyte, and acid-base balance: Hyperchloremic metabolic acidosis emerging in the setting of ileostomy and normal saline resuscitation. Hyperkalemia resolved; mild hyponatremia im proving. Acidosis moderately improved: Monitor as outpatient. May need sodium bicarbonate supplementation as outpatient Admission and Anticipated Discharge Date Admission Date: July 08, 2020 Subjective Seen on rounds this morning at approximately 915. No acute interval clinical events: Tolerating p.o. intake well. States that his ostomy output is different from usual outpatient output but no concerns from patient about diarrhea. No new or worrisome voiding concerns. No shortness of breath or edema. He tells me that he drinks about 50 ounces of fluid daily at home Review of Systems Review of Systems: All systems reviewed & are unremarkable except as noted in Subjective Physical Exam Constitutional: well developed, well nourished, cooperative and comfortable; no acute distress Eyes: EOM intact bilaterally ENMT: Ears: no external ear abnormality Nose: no external nose abnormality Mouth: + dry oral mucous membranes Neck: no nuchal rigidity Respiratory: normal respiratory effort Auscultation: lungs clear to auscultation bilaterally and + diminished lung sounds Cardiovascular: RRR, no murmur, no edema Gastrointestinal (Abdomen): Inspection/Auscultation: normal bowel sounds; abdomen not distended Percussion/Palpation: abdomen soft; abdomen nontender Ileostomy right lower quadrant Musculoskeletal: Extremities: strength 5/5 throughout Skin: no rashes, warm and dry Neurologic: Moves all extremities, fluent speech, no tremor Psychiatric: A+Ox3, euthymic affect Insight: good insight Judgement: good judgement Results & [facility] ([facility]) Vital Signs (Past 12 Hours) Vital Signs Temp Pulse Resp BP Pulse Ox 07/10/20 07:42 36.2 C L 72 18 143/77 H 94 07/09/20 22:55 36.4 C L 59 L 17 102/62 97 Laboratory Results 07/09/20 07:10 07/10/20 09:08 (1) Acute renal failure superimposed on stage 4 chronic kidney disease Acute renal failure type: unspecified Qualified Code(s): N17.9 - Acute kidney failure, unspecified; N18.4 - Chronic kidney disease, stage 4 (severe)
--- NOTE | 2020-07-12 19:13 | Hospitalist Progress Note ---
Date of Service Delayed entry Date of service July 10, 2020 July 12, 2020 Assessment & Plan (1) Acute renal failure superimposed on stage 4 chronic kidney disease: (2) Hyperkalemia: likely Prerenal etiology from recent high Ileostomy output Creatinine improved and returned to almost baseline with with IV fluids From 4, improved to 2.2 K 5.2 --> back to normal Senior Architect/Design Manager Dr. Giordano consulted Recommend to increase oral intake to 80 ounces per day Weekly BMP Dr. Giordano (3) Back pain: (4) Abdominal pain: likely referred pain from T5 and T12 compression fractures Patient reports upper back pain which circles around to his right upper quadrant Mostly when bending down Thoracic spine MRI: IMPRESSION: 1. Subacute to chronic inferior endplate compression fractures at T5 and T12 as described above. No associated retropulsion. 2. Focal areas of endplate edema at the inferior endplate of T7 and superior endplate of T8. These favor small Schmorl's nodes. Small compression fractures could also have a similar appearance but are considered less likely. 3. No significant central canal narrowing. Patient reports relief with tramadol, Tylenol Further evaluation and management per outpatient (5) HTN (hypertension): continue Atenolol (6) GERD (gastroesophageal reflux disease): continue Protonix Disposition Discharge to home Follow-up with PCP in 1 week Follow-up with carton packaging machine operator in 2 weeks plan of care discussed with patient in detail and at length all questions answered He is understanding, agreeable, comfortable with the plan of care Admission and Anticipated Discharge Date Admission Date: July 08, 2020 Subjective Follow-up for acute renal failure on CKD, back pain, etc. Seen resting in bed, comfortable, not in distress, watching TV, in good spirits States he feels fine overall No problems with urination, no abdominal pain, shortness of breath, nausea vomiting, fevers or chills Back pain intermittent, relieved by pain medications No weakness or numbness No other symptoms States he is ready and would like to be discharged Review of Systems Review of Systems: All systems reviewed & are unremarkable except as noted in Subjective Physical Exam Physical Exam: General- oriented x 3, not in distress, speaks in sentences with no effort or accessory muscle use Eyes- anicteric Neck- no JVD Lungs- clear breath sounds bilaterally, no crackles or wheezing Heart- normal rate, regular rhythm; no murmurs Abdomen- normal bowel sounds, nondistended, soft, nontender Extremities- no pretibial edema, no calf tenderness Back-no tenderness/erythema/edema/hematoma Neuro- alert, oriented x 3; no gross focal neurologic deficits Skin- warm & dry Results & Data Results & Data ([facility]) Vital Signs (Past 12 Hours) all noted and reviewed including below Laboratory Results all reviewed (1) Acute renal failure superimposed on stage 4 chronic kidney disease Acute renal failure type: unspecified Qualified Code(s): N17.9 - Acute kidney failure, unspecified; N18.4 - Chronic kidney disease, stage 4 (severe) (2) Abdominal pain Abdominal location: unspecified location Qualified Code(s): R10.9 - Unspecified abdominal pain
--- NOTE | 2020-07-13 18:45 | Discharge Summary ---
Date of Service July 13, 2020 Admission HPI Per Admitting Provider 74 yo male c PMH stage 4 CKD, HTN, GERD, and Crohn's who came in sec to abnormal labs. He was having abd pain occasionally c deep breaths in RLQ above his colostomy. He went to his PCP after several days of dealing with these pains and his bloodwork came back and was abnormal with hyperkalemia and acute on chronic renal failure. His Fuselage Framer encouraged him to go to the ER. He also had a stress test orderded during his PCP visit. PMH-Crohn's, HTN, GERD, CKD4, Pulm nodule, Hyper PTH, ED PSH-Bowel Resection sec to Crohn's, Appy, Anahi, Inguinal hernia, Colostomy SOC-Quit tob as a teen, rare alcohol FH-Father UC, Mother of Brain Tumor, Sister c Breast CA living Admission Exam Per Admitting Provider Physical Exam: ROS-No Headache, No Visual Changes, No Nausea, No Vomiting, No Fever, No Chills, No Neck Pain or Stiffness, No Chest Pain, No Palpitations, No SOB, No HA, No Cough, No Sputum, No Wheezing, + Abdominal Pain, No Diarrhea, No Hematemesis, No Hemoptysis, No Unexpected Weight Loss, No Flank pain, No Melena, No Hematochezia, No Frequency, No Urgency, No Burning, No Hematuria, No Rashes, No Diaphoresis. Appetite is Normal Physical Exam Gen-AAO x 3, NAD, Afebrile Head-NCAT, EOMI, PERRLA, Anicteric Sclera, No Posterior Pharyngeal Erythema Neck-Supple, No JVD, No Thyromegaly, No Masses, No LAD, No Bruits Lungs-Clear to Auscultation Bilaterally, No Rales, No Rhonchi, No Wheezing, No Crepitus Chest-No S4, +S1, +S2, No S3, No Murmurs, No Rubs, No Gallops, No Ectopy Abdomen-Soft, Bowel Sounds Present, Non Tender, Non Distended, No Hepatomegaly, No Splenomegaly, No Palpable Masses, No Rebound, No Rigidity, No Guarding, +Colostomy Bag RLQ Musculoskeletal-Full Range of Motion Bilaterally, No CVAT Extremities-No Cyanosis, No Clubbing, No Edema Nuero-Cranial Nerves II-XII grossly intact, Motor WNL, DTRs WNL, Strength WNL, Non Focal Psych-Normal Mood Principal Diagnosis Acute renal failure on CKD stage 4 Thoracic compression fractures T5 and T12 Discharge Exam Physical Exam: General- oriented x 3, not in distress, speaks in sentences with no effort or accessory muscle use Eyes- anicteric Neck- no JVD Lungs- clear breath sounds bilaterally, no crackles or wheezing Heart- normal rate, regular rhythm; no murmurs Abdomen- normal bowel sounds, nondistended, soft, nontender Extremities- no pretibial edema, no calf tenderness Back-no tenderness/erythema/edema/hematoma Neuro- alert, oriented x 3; no gross focal neurologic deficits Skin- warm & dry Discharge Data Allergies Allergy/AdvReac Type Severity Reaction Status Date / Time oxycodone AdvReac Intermediate MENTAL Verified 07/08/20 18:54 STATUS CHANGES, HALLUCINATIONS Consultations 07/08/20 18:34 ED Decision to Admit Stat 07/08/20 21:09 Consult Nephrology Routine Ordered Studies 07/08/20 18:23 CT abd pelvis wo con Stat FINDINGS: The imaged inferior cardiac chambers are unremarkable. Mild bibasilar atelectasis/scarring. 8 mm fissural nodule of the left lung base, image 20 is unchanged from comparison suggestive of benign etiology. No pneumatosis or pneumoperitoneum. The unenhanced spleen, adrenal glands, pancreas and liver appear unremarkable. Cholecystectomy. Unremarkable kidneys. No hydronephrosis. Unchanged appearance of the urinary bladder and prostate. No abdominal aortic aneurysm. There is no adenopathy. No bowel obstruction or bowel wall thickening. 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 No bowel obstruction or bowel wall thickening. No ascites or mesenteric inflammation. Unremarkable soft tissues. No acute fracture. Chronic appearing T12 compression deformity, new from the 2010 comparison IMPRESSION: 1. No acute intra-abdominal or intrapelvic abnormality. 2. Prior cholecystectomy and total proctocolectomy. 3. No bowel obstruction or bowel wall thickening. 4. Likely chronic T12 compression deformity, new from 2010. Additional findings as above. 07/09/20 14:13 MR thoracic spine wo con Routine FINDINGS: No significant central canal narrowing. The thoracic spinal cord is normal in course, caliber, and signal intensity. Mild to moderate anterior wedging at T12 with mild inferior endplate edema. This favors a subacute on chronic inferior endplate compression fracture. This demonstrates up to 50% loss of height anteriorly. No associated retropulsion. There is mild disc space narrowing throughout the thoracic spine. There is also a moderate to severe anterior wedge-shaped compression deformity at T5 with mild edema along the inferior endplate. This also favors a subacute to chronic fracture. Small focal areas of endplate edema at the inferior endplate of T7 to superior endplate of T8 favor Schmorl's nodes. Tiny compression fractures could also a similar appearance. There are similar-appearing T1 and T2 hyperintense lesions at T7 and T11 which measure 9 mm. These favor Schmorl's nodes. Paraspinal edema at T6-T7 may be due to the large osteophytes at this location. IMPRESSION: 1. Subacute to chronic inferior endplate compression fractures at T5 and T12 as described above. No associated retropulsion. 2. Focal areas of endplate edema at the inferior endplate of T7 and superior endplate of T8. These favor small Schmorl's nodes. Small compression fractures could also have a similar appearance but are considered less likely. 3. No significant central canal narrowing. Hospital Course (1) Acute renal failure superimposed on stage 4 chronic kidney disease: (2) Hyperkalemia: likely Prerenal etiology from recent high Ileostomy output Creatinine improved and returned to almost baseline with with IV fluids From 4, improved to 2.2 K 5.2 --> back to normal Fuselage Framer Dr. Giordano consulted Recommend to increase oral intake to 80 ounces per day Weekly BMP Dr. Giordano (3) Back pain: (4) Abdominal pain: likely referred pain from T5 and T12 compression fractures Patient reports upper back pain which circles around to his right upper quadrant Mostly when bending down Thoracic spine MRI: Please refer to full report in the Ordered Studies section above IMPRESSION: 1. Subacute to chronic inferior endplate compression fractures at T5 and T12 as described above. No associated retropulsion. 2. Focal areas of endplate edema at the inferior endplate of T7 and superior endplate of T8. These favor small Schmorl's nodes. Small compression fractures could also have a similar appearance but are considered less likely. 3. No significant central canal narrowing. Patient reports relief with tramadol, Tylenol Further evaluation and management per outpatient (5) Pulmonary nodule: Please refer to full report in the Ordered Studies section above Further work up, management, and ff up as outpatient (6) HTN (hypertension): continue Atenolol (7) GERD (gastroesophageal reflux disease): continue Protonix Disposition Discharge to home Follow-up with PCP in 1 week Follow-up with human resources support specialist in 2 weeks plan of care discussed with patient in detail and at length all questions answered He is understanding, agreeable, comfortable with the plan of care Total Time Total Time Spent Total Time Spent (In Minutes): >30 minutes Discharge Plan Discharge Items Patient Disposition: Home - Self-Care Reason For Visit: JAIR Discharge Diagnosis: ACUTE KIDNEY INJURY THORACIC SPINE COMPRESSION FRACTURES- T5 AND T12 LEVELS Activity: Resume your previous activity Lifting: Wait until after follow-up appointment Exercise/Sports: Wait until after follow-up appointment Driving/Machine Use: NO DRIVING IF YOU ARE HAVING SEVERE BACK PAIN Non-emergency contact: Primary Care Provider Call non-emergency contact if: you have any medication questions, your symptoms worsen, your pain is not controlled, your pain is worsening, your pain is unus ual for you, your pain is concerning for you and you have a fever Follow-up/Referrals: Neil Whitlock DO [Primary Care Provider] - Diet: Heart Healthy Addtl Attending Provider Instructions: STOP TAKING LISINOPRIL AND LASIX (FUROSEMIDE) TO PREVENT KIDNEY INJURY. YOUR PRIMARY CARE PHYSICIAN WILL GIVE YOU FURTHER ADVICE ON YOUR FOLLOW UP VISIT. DRINK AT LEAST 80 OZ OF FLUIDS PER DAY. DO NOT USE NSAIDS INCLUDING IBUPROFEN, ALLEVE, NAPROXEN, ETC. ALWAYS CONSULT WITH YOUR DOCTOR PRIOR TO TAKING ANY NEW MEDICATIONS. CALL YOUR PRIMARY CARE PHYSICIAN OR RAIL ASSEMBLER IF YOU ARE HAVING INCREASED LOOSE BOWEL MOVEMENTS AGAIN. FOLLOW UP WITH YOUR PRIMARY CARE PHYSICIAN NEXT WEEK. THE CLINIC WILL BE CALLING YOU SOON FOR THE APPOINTMENT. FOLLOW UP WITH DR. SAN SCHEDULED. HER CLINIC WILL BE CALLING YOU FOR THE APPOINTMENT. YOU ALSO NEED WEEKLY BLOODWORK TO CHECK YOUR KIDNEY FUNCTION. THE CLINIC WILL BE CALLING YOU SOON FOR THE APPOINTMENTS. Pending Studies at Discharge: Yes Studies:: WEEKLY BLOODWORK TO CHECK KIDNEY FUNCTION Stand-Alone Forms: My [employer], Smoking Cessation Medications and DC Order Prescriptions: Continued omeprazole 20 mg capsule,delayed release(DR/EC) 20 mg PO DAILY RF: 0 allopurinol 100 mg tablet 200 mg PO DAILY RF: 0 cholecalciferol (vitamin D3) [Vitamin D3] 50 mcg (2,000 unit) Tablet 50 mcg PO DAILY RF: 0 gabapentin 800 mg tablet See Rx Instructions .ROUTE .COMPLEX RF: 0 ketoconazole 2 % shampoo 1 applic TOPICAL . Q 3 DAYS RF: 0 tramadol 50 mg tablet 50 mg PO Q6 PRN (Reason: Pain) RF: 0 cholestyramine (with sugar) 4 gram powder in packet See Rx Instructions .ROUTE .COMPLEX RF: 0 atenolol 25 mg tablet 25 mg PO DAILY RF: 0 Discontinued furosemide 20 mg tablet 10 mg PO 3XWK RF: 0 lisinopril 5 mg tablet 5 mg PO DAILY RF: 0 Discharge Orders: Discharge Order (Routine); Ordered 07/10/20 Ordered By: Sebastián Howe/Other Patient Handouts: Crohn Disease Lifestyle Manage Admission Data Admit Date/Time: 07/08/20 18:51 Attending Provider: Sebastián Gil Admit Provider: Junior Szymanski Primary Care Provider: Neil Whitlock Other Providers: Junior Szymanski ; Nick Feliciano Other Interventions: Discharge Summary Assessment (RN) Last Done: 07/10/20 15:43
== END 2020-07-10 16:53 | disposition home or self-care (01) ==
LOC: ED 16:47 → 3N 18:51 → SUATTDRO 18:51 → 3N 20:48

== ENCOUNTER 2021-10-02 08:03 | Observation (INO) ==
[2021-10-02 08:56] LABS: Basophils # (auto) 0.06 K/uL (0-0.2); Eosinophils % (auto) 1.7 %; Hemoglobin 14.1 g/dl (14.0-18.0); Immature Granulocytes # (auto) 0.02 K/uL (0.00-0.02); Immature Granulocytes % (auto) 0.3 %; Lymphocytes # (auto) 1.12 K/uL (1.2-3.4); Lymphocytes % (auto) 18.6 %; Mean Corpuscular Hemoglobin 30.5 pg (25.0-34.0); Mean Corpuscular Hgb Conc 36.2 g/dL (32.0-36.0); Mean Corpuscular Volume 84.2 fL (80.0-100.0); Mean Platelet Volume 10.1 fL (9.4-12.4); Monocytes # (auto) 0.54 K/uL (0.24-0.82); Neutrophils # (auto) 4.19 K/uL (1.4-6.5); Neutrophils % (auto) 69.4 %; Platelet Count 174 K/uL (130-400); RDW Coefficient of Variation 12.2 % (11.5-14.5); RDW Standard Deviation 36.9 fL (36.4-46.3); Red Blood Count 4.63 M/uL (4.63-6.08); White Blood Count 6.03 K/ul (4.8-10.8)
--- NOTE | 2021-10-02 09:03 | Emergency Department Note ---
Impression & Plan Weakness, Acute hyponatremia, CKD (chronic kidney disease) ED Provider Note Provider: Jaime Cadet MD DATE OF SERVICE: 10/02/2021 CHIEF COMPLAINT: Weakness HISTORY OF PRESENT ILLNESS: Patient is a 76-year-old gentleman history of hypertension, CKD, Crohn's disease status post proctocolectomy and ileostomy about 20 years ago presenting here today via ambulance from his home. States over the past approximately 3 days has been sporadic increased weakness. Some decreased oral intake at home but stable ileostomy output. Denies abdominal pain. Denies headache. States he feels a bit unsteady on his feet. Denies chest pain or shortness of breath. Denies fever. Denies sick contacts. Denies falling. Reports he just does not feel right. Went to [facility] yesterday for evaluation and outpatient blood work was ordered but the lab closed before he could get it completed. Has been try to utilize some boost and drink as to bottles of water daily and discussion previously with nephrology. REVIEW OF SYSTEMS: A total of 10 review of systems was obtained and negative except as stated above in the HPI. PAST MEDICAL HISTORY: As noted above MEDICATIONS: Reviewed home medication list SOCIAL HISTORY: Lives at home with and son PHYSICAL EXAM: GENERAL: alert and oriented in no acute distress on stretcher Head: normocephalic and atraumatic EYES: No injection, discharge or icterus. PERRL NECK: Trachea midline. Supple. ENT: Mucous membranes pink and moist. Pharynx without erythema or exudate. LUNGS: Airway patent. No retractions. Breath sounds clear with good air entry bilaterally. HEART: Regular rate and rhythm. No chest wall tenderness ABDOMEN: Soft and non-tender, without guarding or rebound. This right mid abdominal ileostomy present. SKIN: Acyanotic, warm, dry, without rashes EXTREMITIES: Without tenderness or deformity with trace bilateral pedal edema. NEUROLOGICAL: No focal deficits. No aphasia. No facial droop or slurred speech. Normal strength and tone in the extremities. Sensation to gross touch normal. EK bpm. Normal sinus rhythm. Left axis. No acute ST segment elevation with some nonspecific anterior T wave changes. QTC 464 CONTINUOUS CARDIAC MONITORING: was ordered and showed a heart rate of 70s-80s bpm in normal sinus rhythm Patient's laboratory studies and imaging reviewed. Differential includes Infection, dehydration, metabolic abnormality, hypo/hyperglycemia, electrolyte disturbance, anemia, hypoxia, cardiac sources, intracerebral event, toxicologic, neurologic, as well as other pathologies. IMPRESSION/MEDICAL DECISION MAKING: Patient with some generalized weakness and decreased intake. History of ile ostomy and high output as well as CKD in the past. Question possible dehydration electrolyte abnormality. Denies significant infectious symptoms but will do an infectious work-up to exclude an occult infection. EKG was obtained as well as troponin but lower suspicion for cardiac disease. Patient denies significant headache or focal numbness or weakness at this point and low suspicion this represents CVA. Blood work without significant anemia or leukocytosis. COVID-negative. Urinalysis without evidence of infection and no blood noted. Chemistries do show a little bit of hyponatremia and a little bit elevation of creatinine to 1.95. Outpatient blood work from the [facility] show in August he had a creatinine 1.6 and a sodium of 141. Does have a history of some hyponatremia in the past. Given a small amount of lactated Ringer's here for hydration. States at times later that he does get a little bit nauseous and given some Zofran. Patient again is not been having the best of intake. Discussed with him the options of further observation here versus discharge home given findings here today. He was to stay for observation to see that his symptoms and weakness continue to improve and that he is able to tolerate a decent diet. With hyponatremia do not feel this is totally unreasonable. Discussed with the hospitalist. DIAGNOSIS: Weakness, nausea, hyponatremia DISPOSITION: Hospitalist will evaluate Patient was agreeable with this plan. Past Med/Surg History Medical History Chronic kidney disease, stage IV (severe) Crohn's disease No active Crohn's since proctocolectomy and not on medication since 2009. Last verified on December 2019 GI scope GERD (gastroesophageal reflux disease) HTN (hypertension) Ileostomy present Permanent; 2007 Uric acid nephrolithiasis One-time stone episode 2010 Surgical History Hx of appendectomy Status post proctocolectomy 2007 with permanent ileostomy Family History Sister Cancer Breast cancer Grandfather No problems noted. Father Ulcerative colitis Social History Smoking Status: Never smoker Second Hand Exposure: No; Hx Alcohol Use: Yes Alcohol type: beer Hx Substance Use: No Preferred Language: Mohawk Communication Ability: Effective Sales Representative [employer] Required: No Beliefs That Will Affect Care: None marital status: Current Living Situation: Spouse Current Living Situation Comment: Lives with . Feels Safe at Home: Yes Assistive Devices: None Allergies Allergies Allergy/AdvReac Type Severity Reaction Status Date / Time oxycodone AdvReac Intermediate MENTAL Verified 07/08/20 18:54 STATUS CHANGES, HALLUCINATIONS Home Meds Home Medications Medication Instructions Recorded Confirmed allopurinol 100 mg tablet 200 mg PO DAILY 07/08/20 07/08/20 atenolol 25 mg tablet 25 mg PO DAILY 07/08/20 07/08/20 cholecalciferol (vitamin D3) 50 50 mcg PO DAILY 07/08/20 07/08/20 mcg (2,000 unit) tablet (Vitamin D3) cholestyramine (with sugar) 4 gram See Rx Instructions .Route .COMPLEX 07/08/20 07/08/20 powder for susp in a packet gabapentin 800 mg tablet See Rx Instructions .Route .COMPLEX 07/08/20 07/08/20 ketoconazole 2 % shampoo 1 applic topical . Q 3 DAYS 07/08/20 07/08/20 omeprazole 20 mg capsule,delayed 20 mg PO DAILY 07/08/20 07/08/20 release tramadol 50 mg tablet 50 mg PO Q6 PRN Pain 07/08/20 07/08/20 Results & Data (ED) Vital Signs Vital Signs - 24 hr 10/02/21 08:05 10/02/21 09:00 10/02/21 10:00 Temperature 36.6 C Temperature Source Oral Pulse Rate 83 Pulse Rate [Apical] 84 79 Pulse Rhythm Regular Pulse Rhythm [Apical] Regular Regular Pulse Strength Normal Pulse Strength [Apical] Normal Normal Respiratory Rate 17 16 18 Respiratory Effort / Characteristics Non-Labored Spontaneous Non-Labored Spontaneous Non-Labored Spontaneous Respiratory Depth Normal Normal Normal Respiratory Pattern Regular Regular Regular Blood Pressure 142/75 H Blood Pressure [Left Arm] 134/81 124/74 Blood Pressure Mean 97 Blood Pressure Mean [Left Arm] 98 90 Blood Pressure Position Semi-fowlers Blood Pressure Position [Left Arm] Lying Lying Pulse Oximetry 98 98 97 Oxygen Delivery Method Room Air Room Air Room Air Sepsis Recent Fever Within 48 Hours No Sepsis New/Unexplained Change in Mental Status N/A Sepsis Action Taken by Nursing No Action Required 10/02/21 11:15 Temperature Temperature Source Pulse Rate Pulse Rate [Apical] Pulse Rhythm Pulse Rhythm [Apical] Pulse Strength Pulse Strength [Apical] Respiratory Rate Respiratory Effort / Characteristics Respiratory Depth Respiratory Pattern Blood Pressure Blood Pressure [Left Arm] Blood Pressure Mean Blood Pressure Mean [Left Arm] Blood Pressure Position Blood Pressure Position [Left Arm] Pulse Oximetry 95 Oxygen Delivery Method Room Air Sepsis Recent Fever Within 48 Hours Sepsis New/Unexplained Change in Mental Status Sepsis Action Taken by Nursing Laboratory Data Result diagrams: 10/02/21 08:25 10/02/21 08:25 Lab Results 10/02/21 10/02/21 10/02/21 Range/Units 08:25 08:25 08:25 WBC 6.03 (4.8-10.8) K/ul RBC 4.63 (4.63-6.08) M/uL Hgb 14.1 (14.0-18.0) g/dl Hct 39.0 L (40.1-51.0) % MCV 84.2 (80.0-100.0) fL MCH 30.5 (25.0-34.0) pg MCHC 36.2 H (32.0-36.0) g/dL RDW Std Deviation 36.9 (36.4-46.3) fL RDW Coeff of Doyle 12.2 (11.5-14.5) % Plt Count 174 (130-400) K/uL MPV 10.1 (9.4-12.4) fL Immature Gran % (Auto) 0.3 % Neut % (Auto) 69.4 % Lymph % (Auto) 18.6 % [place] % (Auto) 9.0 % Eos % (Auto) 1.7 % Baso % (Auto) 1.0 % Neut # (Auto) 4.19 (1.4-6.5) K/uL Lymph # (Auto) 1.12 L (1.2-3.4) K/uL Jennings # (Auto) 0.54 (0.24-0.82) K/uL Eos # (Auto) 0.10 (0-0.50) K/uL Baso # (Auto) 0.06 (0-0.2) K/uL Immature Gran # (Auto) 0.02 (0.00-0.02) K/uL Sodium 130 L (136-145) mmol/L Potassium 3.7 (3.5-5.1) mmol/L Chloride 91 L (98-107) mmol/L Carbon Dioxide 29 (21-32) mmol/L Anion Gap 10 (3-11) BUN 21 (6-23) mg/dl Creatinine 1.95 H (0.6-1.4) mg/dl Est Cr Clr Drug Dosing 32.2 ml/min Est GFR ( Amer) 37.1 ml/min Est GFR (Non-Af Amer) 32.0 ml/min BUN/Creatinine Ratio 10.8 (10-20) Glucose 113 H (70-99(Fasting)) mg/dl Lactate (0.4-2.0) mmol/L Calcium 9.5 (8.5-10.1) mg/dl Magnesium 2.0 (1.7-2.4) mg/dl Total Bilirubin 1.0 (0.2-1.0) mg/dl AST 36 (13-39) U/L ALT 27 (7-52) U/L Alkaline Phosphatase 178 H (34-104) U/L Troponin I High Sens 7.5 (0-20) pg/ml Total Protein 7.2 (6.0-8.3) gm/dl Albumin 4.1 (3.4-5.0) gm/dl Globulin 3.1 (2.5-4.0) gm/dl Albumin/Globulin Ratio 1.3 (0.9-2) Procalcitonin (0-0.5) ng/ml TSH 2.135 (0.300-4.500) uIu/ml Urine Color Urine Appearance (Clear) Urine pH (4.5-7.5) Ur Specific [place] (1.000-1.030) Urine Protein (Negative) Urine Glucose (UA) (Negative) Urine Ketones (Negative) Urine Blood (Negative) Urine Nitrite (Negative) Urine Bilirubin (Negative) Urine Urobilinogen (Negative) Ur Leukocyte Esterase (Negative) Urine WBC (Auto) (0-5) /hpf Urine RBC (Auto) (0-4) /hpf U Hyaline Cast (Auto) (0-5) /lpf U Epithel Cells (Auto) (0-5) /lpf Urine Bacteria (Auto) (Negative) SARS-CoV-2, RNA, NAAT (NEGATIVE) 10/02/21 10/02/21 10/02/21 Range/Units 08:25 08:48 09:15 WBC (4.8-10.8) K/ul RBC (4.63-6.08) M/uL Hgb (14.0-18.0) g/dl Hct (40.1-51.0) % MCV (80.0-100.0) fL MCH (25.0-34.0) pg MCHC (32.0-36.0) g/dL RDW Std Deviation (36.4-46.3) fL RDW Coeff of Doyle (11.5-14.5) % Plt Count (130-400) K/uL MPV (9.4-12.4) fL Immature Gran % (Auto) % Neut % (Auto) % Lymph % (Auto) % [place] % (Auto) % Eos % (Auto) % Baso % (Auto) % Neut # (Auto) (1.4-6.5) K/uL Lymph # (Auto) (1.2-3.4) K/uL [place] # (Auto) (0.24-0.82) K/uL Eos # (Auto) (0-0.50) K/uL Baso # (Auto) (0-0.2) K/uL Immature Gran # (Auto) (0.00-0.02) K/uL Sodium (136-145) mmol/L Potassium (3.5-5.1) mmol/L Chloride (98-107) mmol/L Carbon Dioxide (21-32) mmol/L Anion Gap (3-11) BUN (6-23) mg/dl Creatinine (0.6-1.4) mg/dl Est Cr Clr Drug Dosing ml/min Est GFR ( Amer) ml/min Est GFR (Non-Af Amer) ml/min BUN/Creatinine Ratio (10-20) Glucose (70-99(Fasting)) mg/dl Lactate 1.0 (0.4-2.0) mmol/L Calcium (8.5-10.1) mg/dl Magnesium (1.7-2.4) mg/dl Total Bilirubin (0.2-1.0) mg/dl AST (13-39) U/L ALT (7-52) U/L Alkaline Phosphatase (34-104) U/L Troponin I High Sens (0-20) pg/ml Total Protein (6.0-8.3) gm/dl Albumin (3.4-5.0) gm/dl Globulin (2.5-4.0) gm/dl Albumin/Globulin Ratio (0.9-2) Procalcitonin 0.22 (0-0.5) ng/ml TSH (0.300-4.500) uIu/ml Urine Color Urine Appearance (Clear) Urine pH (4.5-7.5) Ur Specific [place] (1.000-1.030) Urine Protein (Negative) Urine Glucose (UA) (Negative) Urine Ketones (Negative) Urine Blood (Negative) Urine Nitrite (Negative) Urine Bilirubin (Negative) Urine Urobilinogen (Negative) Ur Leukocyte Esterase (Negative) Urine WBC (Auto) (0-5) /hpf Urine RBC (Auto) (0-4) /hpf U Hyaline Cast (Auto) (0-5) /lpf U Epithel Cells (Auto) (0-5) /lpf Urine Bacteria (Auto) (Negative) SARS-CoV-2, RNA, NAAT NEGATIVE (NEGATIVE) 10/02/21 Range/Units 11:00 WBC (4.8-10.8) K/ul RBC (4.63-6.08) M/uL Hgb (14.0-18.0) g/dl Hct (40.1-51.0) % MCV (80.0-100.0) fL MCH (25.0-34.0) pg MCHC (32.0-36.0) g/dL RDW Std Deviation (36.4-46.3) fL RDW Coeff of Doyle (11.5-14.5) % Plt Count (130-400) K/uL MPV (9.4-12.4) fL Immature Gran % (Auto) % Neut % (Auto) % Lymph % (Auto) % [place] % (Auto) % Eos % (Auto) % Baso % (Auto) % Neut # (Auto) (1.4-6.5) K/uL Lymph # (Auto) (1.2-3.4) K/uL [place] # (Auto) (0.24-0.82) K/uL Eos # (Auto) (0-0.50) K/uL Baso # (Auto) (0-0.2) K/uL Immature Gran # (Auto) (0.00-0.02) K/uL Sodium (136-145) mmol/L Potassium (3.5-5.1) mmol/L Chloride (98-107) mmol/L Carbon Dioxide (21-32) mmol/L Anion Gap (3-11) BUN (6-23) mg/dl Creatinine (0.6-1.4) mg/dl Est Cr Clr Drug Dosing ml/min Est GFR ( Amer) ml/min Est GFR (Non-Af Amer) ml/min BUN/Creatinine Ratio (10-20) Glucose (70-99(Fasting)) mg/dl Lactate (0.4-2.0) mmol/L Calcium (8.5-10.1) mg/dl Magnesium (1.7-2.4) mg/dl Total Bilirubin (0.2-1.0) mg/dl AST (13-39) U/L ALT (7-52) U/L Alkaline Phosphatase (34-104) U/L Troponin I High Sens (0-20) pg/ml Total Protein (6.0-8.3) gm/dl Albumin (3.4-5.0) gm/dl Globulin (2.5-4.0) gm/dl Albumin/Globulin Ratio (0.9-2) Procalcitonin (0-0.5) ng/ml TSH (0.300-4.500) uIu/ml Urine Color Yellow Urine Appearance Clear (Clear) Urine pH 8.0 H (4.5-7.5) Ur Specific [place] 1.010 (1.000-1.030) Urine Protein Trace H (Negative) Urine Glucose (UA) Negative (Negative) Urine Ketones Negative (Negative) Urine Blood Negative (Negative) Urine Nitrite Negative (Negative) Urine Bilirubin Negative (Negative) Urine Urobilinogen Negative (Negative) Ur Leukocyte Esterase Negative (Negative) Urine WBC (Auto) 0 (0-5) /hpf Urine RBC (Auto) 0-4 (0-4) /hpf U Hyaline Cast (Auto) 0 (0-5) /lpf U Epithel Cells (Auto) 5-10 H (0-5) /lpf Urine Bacteria (Auto) Negative (Negative) SARS-CoV-2, RNA, NAAT (NEGATIVE) Administered Medications Discontinued Medications Lactated Ringer's (Lr) 500 mls @ 999 mls/hr IV .Q31M ONE Stop: 10/02/21 10:30 Last Infusion: 10/02/21 11:53 Dose: 0 mls/hr Documented By: Admin: 10/02/21 11:03 Dose: 999 mls/hr Documented By: SO Ondansetron HCl (Ondansetron Inj 2 Mg/Ml 2 Ml Vial) 4 mg IV NOW STA Stop: 10/02/21 12:07 Last Admin: 10/02/21 12:17 Dose: 4 mg Documented By: JOJO Imaging Data Radiologist's Impression: Chest X-Ray 10/02/21 08:15 XR chest 1V portable CLINICAL HISTORY: weakness. Evaluate cardiopulmonary status COMPARISON STUDY: 07/08/2020 TECHNIQUE: 1 view of the chest FINDINGS: Single frontal view of the chest demonstrates the cardiomediastinal silhouette to be within normal limits. Prominent apical cardiac fat-pad is again seen on the left. The lungs are clear of alveolar opacities. There is no evidence for p leural effusion. There is no evidence for vascular congestion. There is no acute osseous pathology. IMPRESSION: 1. No acute cardiopulmonary disease. ACT 112: Negative or not required by law. Electronically signed by: Tin Boykin M.D. 10/02/2021 9:05 AM Discharge Plan Visit Data Chief Complaint: Weakness ED Provider: Jaime Cadet Discharge Problem: Weakness, Acute hyponatremia, CKD (chronic kidney disease) Patient Disposition: Being Evaluated by Hospitalist Forms Stand Alone Forms: My [employer] Prescriptions Prescriptions: No Action omeprazole 20 mg capsule,delayed release(DR/EC) 20 mg PO DAILY allopurinol 100 mg tablet 200 mg PO DAILY cholecalciferol (vitamin D3) [Vitamin D3] 50 mcg (2,000 unit) Tablet 50 mcg PO DAILY gabapentin 800 mg tablet See Rx Instructions .ROUTE .COMPLEX Rx Instructions: take 1 tablet by mouth in the am,1 tablet in the pm and 2 in the evening ketoconazole 2 % shampoo 1 applic TOPICAL . Q 3 DAYS tramadol 50 mg tablet 50 mg PO Q6 PRN (Reason: Pain) cholestyramine (with sugar) 4 gram powder in packet See Rx Instructions .ROUTE .COMPLEX Rx Instructions: mix with liquid take 1 packet in the moring and 1/2 packet in evening atenolol 25 mg tablet 25 mg PO DAILY Referrals Referrals: Neil Whitlock DO [Primary Care Provider] - : CKD (chronic kidney disease) Qualifiers: Chronic kidney disease stage: stage 3 (moderate) Chronic kidney disease stage 3 subtype: stage 3b (GFR 30-44) Qualified Code(s): N18.32 - Chronic kidney disease, stage 3b
--- NOTE | 2021-10-02 09:06 | XRay Report ---
XR chest 1V portable CLINICAL HISTORY: weakness. Evaluate cardiopulmonary status COMPARISON STUDY: 07/08/2020 TECHNIQUE: 1 view of the chest FINDINGS: Single frontal view of the chest demonstrates the cardiomediastinal silhouette to be within normal li mits. Prominent apical cardiac fat-pad is again seen on the left. The lungs are clear of alveolar opa cities. There is no evidence for pleural effusion. There is no evidence for vascular congestion. Ther e is no acute osseous pathology. IMPRESSION: 1. No acute cardiopulmonary disease. ACT 112: Negative or not required by law. Electronically signed by: Tin Boykin M.D. 10/02/2021 9:05 AM
[2021-10-02 09:18] LABS: Albumin Globulin Ratio 1.3 (0.9-2); Albumin Level 4.1 gm/dl (3.4-5.0); BUN Creatinine Ratio 10.8 (10-20); Calcium 9.5 mg/dl (8.5-10.1); Creatinine Clr Calc Pharmacy 32.2 ml/min; Est GFR (African American) 37.1 ml/min; Globulin 3.1 gm/dl (2.5-4.0); Potassium 3.7 mmol/L (3.5-5.1); Total Protein 7.2 gm/dl (6.0-8.3)
[2021-10-02 09:23] LABS: Troponin I High Sensitivity 7.5 pg/ml (0-20)
[2021-10-02] MEDS ORDERED: LACTATED RINGER'S 500 ML IV ONE (10:00)
[2021-10-02 11:41] LABS: Appearance Urine Clear (Clear); Bacteria Urine Automated Negative (Negative); Bilirubin Urine Negative (Negative); Blood Urine Negative (Negative); Cast Urine Automated 0 /lpf (0-5); Color Urine Yellow; Glucose Urine UA Negative (Negative); Ketones Urine Negative (Negative); Leukocyte Esterase Urine Negative (Negative); Nitrite Urine Negative (Negative); RBC Urine Automated 0-4 /hpf (0-4); Urobilinogen Urine Negative (Negative); WBC Urine Automated 0 /hpf (0-5)
[2021-10-02 11:44] LABS: Protein Urine Trace (Negative)
[2021-10-02] MEDS ORDERED: ONDANSETRON INJ 2 MG/ML 2 ML VIAL IV STA (12:06)
--- NOTE | 2021-10-02 12:33 | History & Physical Report ---
Date of Service October 02, 2021 Assessment & Plan (1) Weakness: (2) Acute hyponatremia: Plan: This is a 76-year-old male with history of Crohn's disease with ileostomy, hypertension, CKD, GERD and other medical problems listed below who presents with generalized weakness and fatigue over the past 3 days and was found to have mild hyponatremia. Generalized weakness and fatigue over the past 3 days in the setting of upper teeth removal/denture fitting Has been seen by nephrology with suspected low solute diet due to dental issues. Instructed to limit fluid intake to 50 ounces daily with 1-2 protein shakes until teeth return to normal Na 130 today (baseline mid 130s). Serum osm pending, urine osm 237 Afebrile, no leukocytosis or evidence of infection, TSH and procal WNL Fluid restriction, boost twice daily, soft bite-size diet Precautions, PT/OT evaluation (3) CKD (chronic kidney disease): Plan: Baseline Cr per outpatient labs ~ 1.7. Elevated at 1.95 today in setting of poor PO intake. Continue to monitor with daily BMP. Continue sodium bicarb for history of acidosis (4) Crohn's disease: (5) Ileostomy present: Plan: Output normal, per patient. Continue cholestyramine (6) HTN (hypertension): Plan: Atenolol discontinued yesterday by PCP due to lightheadedness. Normotensive BP DVT Ppx: SQ heparin Code status: FULL PCP: Kamlesh Dispo: Obs med/surg Patient seen in collaboration with Dr. Gil. Please see addendum. Plan Attending Addendum: care coordinated with ZULMA Escobedo please refer to her notes for full details, I agree with her notes patient seen and examined, records reviewed by myself as well Sebastián Gil MD History of Present Illness Chief Complaint: Generalized weakness, feeling rundown Primary Care Provider: Neil Whitlock, DO This is a 76-year-old male with history of Crohn's disease with ileostomy, hypertension, GERD, CKD and other medical problems listed below who presents with generalized weakness and fatigue over the past 3 days. Patient had upper teeth removed for denture fitting a month ago and its been painful to eat or drink, limiting his intake. States he does have stable output in ostomy bag. No blood in bag was visualized. Has felt cold the past few days with some dizziness. Denies any fever, congestion, chest pain, palpitations, shortness of breath, nausea, vomiting, abdominal pain, dysuria, diarrhea or constipation. Was seen in clinic yesterday by Dr. Chen and was instructed to discontinue atenolol as it may be contributing to lightheadedness. Also instructed to start vitamin D 100 mcg daily and start drinking Boost shakes. Follows with nephrology and renal function has improved over the past few months with new baseline creatinine around 1.7. Suspected low solute diet due to dental issues. Instructed to limit fluid intake to 50 ounces daily with 1-2 protein shakes until teeth go back to normal. On sodium bicarb due to history of acidosis. Allergies Allergy/AdvReac Type Severity Reaction Status Date / Time oxycodone AdvReac Intermediate MENTAL Verified 07/08/20 18:54 STATUS CHANGES, HALLUCINATIONS Home Medications Medication Instructions Recorded Confirmed Type allopurinol 100 mg tablet 200 mg PO DAILY 07/08/20 10/02/21 History cholecalciferol (vitamin D3) 50 50 mcg PO DAILY 07/08/20 10/02/21 History mcg (2,000 unit) tablet (Vitamin D3) cholestyramine (with sugar) 4 gram 1 ea PO TID 07/08/20 10/02/21 History powder for susp in a packet gabapentin 800 mg tablet See Rx Instructions .Route .COMPLEX 07/08/20 10/02/21 History ketoconazole 2 % shampoo 1 applic topical . Q 3 DAYS 07/08/20 10/02/21 History omeprazole 20 mg capsule,delayed 20 mg PO DAILY 07/08/20 10/02/21 History release sodium bicarbonate 650 mg tablet 1,300 mg PO BID 10/02/21 10/02/21 History tramadol 50 mg tablet 50 mg PO Q6H PRN Pain 10/02/21 10/02/21 History Past Med/Surg History Medical History Chronic kidney disease, stage IV (severe) Crohn's disease No active Crohn's since proctocolectomy and not on medication since 2009. Last verified on December 2019 GI scope GERD (gastroesophageal reflux disease) HTN (hypertension) Ileostomy present Permanent; 2007 Uric acid nephrolithiasis One-time stone episode 2010 Surgical History Hx of appendectomy Status post proctocolectomy 2007 with permanent ileostomy Family History Sister Cancer Breast cancer Grandfather No problems noted. Father Ulcerative colitis Social History Smoking Status: Unknown if ever smoked Second Hand Exposure: No; Hx Alcohol Use: No Hx Substance Use: No Preferred Language: Sami Communication Ability: Effective Branch Officer Required: No Beliefs That Will Affect Care: None marital status: Current Living Situation: Alone, Spouse and Family Current Living Situation Comment: Lives with . Other Information That Helps Us Care for You: No Feels Safe at Home: Yes Safety Concerns: Feels Safe At This Time Assistive Devices: Glasses Review of Systems Review of Systems: At least ten systems reviewed and negative except as noted in the HPI. Physical Exam Physical Exam: General Appearance: WD/WN, vitals as above, NAD, sitting up in bed, pleasant, conversing easily Head: normocephalic, atraumatic Eyes: normal inspection, PERRL, conjunctivae normal, anicteric sclerae ENT: external ear and nose normal, oropharynx normal Neck: normal visual inspection, trachea midline, no thyromegaly Respiratory: normal respiratory effort, lungs clear to auscultation, no wheeze, rales, rhonchi. No accessory muscle use Cardiovascular: regular rate, rhythm, no murmur, normal peripheral pulses, no BLE edema. Vessels: no JVD Chest: normal inspection of chest Abdomen/GI: normal bowel sounds, soft, nontender, no hepatosplenomegaly. + ostomy bag with brown output Extremities/Musculoskeletal: no cyanosis or clubbing, extremities motor strength 5/5 Neurologic: PERRL, EOMI, accommodation nl, no face palsy, no dysarthria, CN's II-XI intact bilaterally and moves all extremities Psychiatric: A+Ox3, euthymic affect Skin: no rashes, normal color, warm/dry Results & Data Results & Data ([facility]) Vital Signs (Past 12 Hours) Vital Signs Temp Pulse Pulse Resp BP BP Pulse Ox 10/02/21 11:15 95 10/02/21 10:00 79 18 124/74 97 10/02/21 09:00 84 16 134/81 98 10/02/21 08:05 36.6 C 83 17 142/75 H 98 O2 Del Method 10/02/21 11:15 Room Air 10/02/21 10:00 Room Air 10/02/21 09:00 Room Air 10/02/21 08:05 Room Air Laboratory Results Short CBC 10/02/21 Range/Units 08:25 WBC 6.03 (4.8-10.8) K/ul Hgb 14.1 (14.0-18.0) g/dl Hct 39.0 L (40.1-51.0) % Plt Count 174 (130-400) K/uL BMP 10/02/21 08:25 Sodium 130 L Potassium 3.7 Chloride 91 L Carbon Dioxide 29 BUN 21 Creatinine 1.95 H Glucose 113 H Calcium 9.5 Liver Function 10/02/21 Range/Units 08:25 Total Bilirubin 1.0 (0.2-1.0) mg/dl AST 36 (13-39) U/L ALT 27 (7-52) U/L Alkaline Phosphatase 178 H (34-104) U/L Albumin 4.1 (3.4-5.0) gm/dl Urine 10/02/21 Range/Units 11:00 Urine Color Yellow Urine Appearance Clear (Clear) Urine pH 8.0 H (4.5-7.5) Ur Specific Sharon 1.010 (1.000-1.030) Urine Protein Trace H (Negative) Urine Glucose (UA) Negative (Negative) Diagnostic Findings Chest X-Ray 10/02/21 08:15 XR chest 1V portable CLINICAL HISTORY: weakness. Evaluate cardiopulmonary status COMPARISON STUDY: 07/08/2020 TECHNIQUE: 1 view of the chest FINDINGS: Single frontal view of the chest demonstrates the cardiomediastinal silhouette to be within normal limits. Prominent apical cardiac fat-pad is again seen on the left. The lungs are clear of alveolar opacities. There is no evidence for pleural effusion. There is no evidence for vascular congestion. There is no acute osseous pathology. IMPRESSION: 1. No acute cardiopulmonary disease. ACT 112: Negative or not required by law. Electronically signed by: Tin Boykin M.D. 10/02/2021 9:05 AM Code Status & VTE Plan VTE Prophylaxis Plan VTE Prophylaxis will be ordered: Yes (1) CKD (chronic kidney disease) Chronic kidney disease stage: stage 3 (moderate) Chronic kidney disease stage 3 subtype: stage 3b (GFR 30-44) Qualified Code(s): N18.32 - Chronic kidney disease, stage 3b
--- NOTE | 2021-10-02 13:43 | Electrocardiogram Report ---
Test Reason : Blood Pressure : / mmHG Vent. Rate : 073 BPM Atrial Rate : 073 BPM P-R Int : 190 ms QRS Dur : 096 ms QT Int : 422 ms P-R-T Axes : 047 -80 056 degrees QTc Int : 464 ms Normal sinus rhythm Left axis deviation Cannot rule out Anterior infarct , age undetermined Abnormal ECG When compared with ECG of 08-JUL-2020 16:55, Inverted T waves have replaced nonspecific T wave abnormality in Anterior leads QT has lengthened Confirmed by Dagoberto Simmons ([id number]) on 10/02/2021 1:42:30 PM Referred By: REFERRED SELF Confirmed By:Dagoberto Simmons
[2021-10-02] MEDS ORDERED: POLYETHYLENE (MIRALAX) 17 GM PACK PO PRN (14:31)
[2021-10-02] MEDS ORDERED: ACETAMINOPHEN 325 MG TAB PO PRN (14:31)
[2021-10-02] MEDS ORDERED: ONDANSETRON INJ 2 MG/ML 2 ML VIAL IV PRN (14:31)
[2021-10-02] MEDS ORDERED: traMADol HCL 50 MG TABLET PO PRN (14:37)
[2021-10-02] MEDS: HEPARIN SOD 5,000 UNIT/0.5 ML VIAL SQ SCH ×2 (16:57→22:25)
[2021-10-02] MEDS: GABAPENTIN 800 MG TAB PO SCH (22:23)
[2021-10-02] MEDS: SODIUM BICARBONATE 650 MG TAB PO SCH (22:24)
[2021-10-02] MEDS: CHOLESTYRAMINE LIGHT 4 GM PKT PO SCH (22:25)
[2021-10-03] MEDS: HEPARIN SOD 5,000 UNIT/0.5 ML VIAL SQ SCH (06:04)
[2021-10-03 06:51] LABS: Hematocrit (blood only) 36.6 % (40.1-51.0); Hemoglobin 12.8 g/dl (14.0-18.0); Mean Corpuscular Hemoglobin 30.5 pg (25.0-34.0); Mean Corpuscular Volume 87.4 fL (80.0-100.0); Platelet Count 152 K/uL (130-400); RDW Coefficient of Variation 12.3 % (11.5-14.5); RDW Standard Deviation 38.8 fL (36.4-46.3); Red Blood Count 4.19 M/uL (4.63-6.08); White Blood Count 5.06 K/ul (4.8-10.8)
[2021-10-03 07:15] LABS: BUN Creatinine Ratio 11.5 (10-20); Calcium 8.9 mg/dl (8.5-10.1); Creatinine Clr Calc Pharmacy 31.4 ml/min; Potassium 3.4 mmol/L (3.5-5.1)
[2021-10-03] MEDS: GABAPENTIN 800 MG TAB PO SCH (08:13)
[2021-10-03] MEDS: SODIUM BICARBONATE 650 MG TAB PO SCH (08:13)
[2021-10-03] MEDS ORDERED: CHOLECALCIFEROL 1,000 UNITS 25 MCG TAB PO SCH (09:00)
[2021-10-03] MEDS ORDERED: allopurinoL 100 MG TAB PO SCH (09:00)
[2021-10-03] MEDS ORDERED: PANTOprazole 40 MG TAB PO SCH (09:00)
[2021-10-03] MEDS: CHOLESTYRAMINE LIGHT 4 GM PKT PO SCH (09:27)
[2021-10-03] MEDS ORDERED: POTASSIUM CHLORIDE CRTAB 20 MEQ TABCR PO STA (09:46)
--- NOTE | 2021-10-03 12:40 | Discharge Summary ---
Date of Service October 03, 2021 Admission HPI Per Admitting Provider This is a 76-year-old male with history of Crohn's disease with ileostomy, hypertension, GERD, CKD and other medical problems listed below who presents with generalized weakness and fatigue over the past 3 days. Patient had upper teeth removed for denture fitting a month ago and its been painful to eat or drink, limiting his intake. States he does have stable output in ostomy bag. No blood in bag was visualized. Has felt cold the past few days with some dizziness. Denies any fever, congestion, chest pain, palpitations, shortness of breath, nausea, vomiting, abdominal pain, dysuria, diarrhea or constipation. Was seen in clinic yesterday by Dr. Chen and was instructed to discontinue atenolol as it may be contributing to lightheadedness. Also instructed to start vitamin D 100 mcg daily and start drinking Boost shakes. Follows with nephrology and renal function has improved over the past few months with new baseline creatinine around 1.7. Suspected low solute diet due to dental issues. Instructed to limit fluid intake to 50 ounces daily with 1-2 protein shakes until teeth go back to normal. On sodium bicarb due to history of acidosis. Admission Exam Per Admitting Provider General Appearance:WD/WN, vitals as above, NAD, sitting up in bed, pleasant, conversing easily Head: normocephalic, atraumatic Eyes:normal inspection, PERRL, conjunctivae normal, anicteric sclerae ENT: external ear and nose normal, oropharynx normal Neck: normal visual inspection, trachea midline, no thyromegaly Respiratory:normal respiratory effort, lungs clear to auscultation, no wheeze, rales, rhonchi. No accessory muscle use Cardiovascular: regular rate, rhythm, no murmur, normal peripheral pulses, no BLE edema. Vessels: no JVD Chest: normal inspection of chest Abdomen/GI: normal bowel sounds, soft, nontender, no hepatosplenomegaly. + ostomy bag with brown output Extremities/Musculoskeletal: no cyanosis or clubbing, extremities motor strength 5/5 Neurologic: PERRL, EOMI, accommodation nl, no face palsy, no dysarthria, CN's II-XI intact bilaterally and moves all extremities Psychiatric:A+Ox3, euthymic affect Skin: no rashes, normal color, warm/dry Principal Diagnosis Generalized Weakness acute on chronic hyponatremia chronic kidney disease Discharge Exam Gen: WD/WN, Tall, NAD, A&O x3 HEENT: Normocephalic, atraumatic, conjunctivae moist, sclerae anicteric, mucous membranes moist. Lung: Clear to Auscultation bilaterally, no wheezes/rales/rhonchi Heart: Regular rate, regular rhythm, no murmurs, rubs, or gallops Abdomen: Soft, NT, ND +BS x 4, RLQ Ileostomy with normal output Extremities: No edema Skin: Warm, no rash, negative turgor. Discharge Data Allergies Allergy/AdvReac Type Severity Reaction Status Date / Time oxycodone AdvReac Intermediate MENTAL Verified 07/08/20 18:54 STATUS CHANGES, HALLUCINATIONS Consultations 10/02/21 12:26 ED Decision to Admit Stat Ordered Studies Chest X-Ray 10/02/21 08:15 XR chest 1V portable CLINICAL HISTORY: weakness. Evaluate cardiopulmonary status COMPARISON STUDY: 07/08/2020 TECHNIQUE: 1 view of the chest FINDINGS: Single frontal view of the chest demonstrates the cardiomediastinal silhouette to be within normal limits. Prominent apical cardiac fat-pad is again seen on the left. The lungs are clear of alveolar opacities. There is no evidence for pleural effusion. There is no evidence for vascular congestion. There is no acute osseous pathology. IMPRESSION: 1. No acute cardiopulmonary disease. ACT 112: Negative or not required by law. Electronically signed by: Tin Boykin M.D. 10/02/2021 9:05 AM 10/03/21 10/03/21 10/02/21 Range/Units 06:08 06:08 11:00 WBC 5.06 (4.8-10.8) K/ul RBC 4.19 L (4.63-6.08) M/uL Hgb 12.8 L (14.0-18.0) g/dl Hct 36.6 L (40.1-51.0) % MCV 87.4 (80.0-100.0) fL MCH 30.5 (25.0-34.0) pg MCHC 35.0 (32.0-36.0) g/dL RDW Std Deviation 38.8 (36.4-46.3) fL RDW Coeff of Doyle 12.3 (11.5-14.5) % Plt Count 152 (130-400) K/uL MPV 10.0 (9.4-12.4) fL Sodium 131 L (136-145) mmol/L Potassium 3.4 L (3.5-5.1) mmol/L Chloride 92 L (98-107) mmol/L Carbon Dioxide 29 (21-32) mmol/L Anion Gap 10 (3-11) BUN 23 (6-23) mg/dl Creatinine 2.00 H (0.6-1.4) mg/dl Est Cr Clr Drug Dosing 31.4 ml/min Est GFR ( Amer) 36.0 ml/min Est GFR (Non-Af Amer) 31.0 ml/min BUN/Creatinine Ratio 11.5 (10-20) Glucose 93 (70-99(Fasting)) mg/dl Osmolality (280-300) mOsm/kg Calcium 8.9 (8.5-10.1) mg/dl Urine Osmolality 237 L (500-800) mOsm/kg 10/02/21 Range/Units 08:25 WBC (4.8-10.8) K/ul RBC (4.63-6.08) M/uL Hgb (14.0-18.0) g/dl Hct (40.1-51.0) % MCV (80.0-100.0) fL MCH (25.0-34.0) pg MCHC (32.0-36.0) g/dL RDW Std Deviation (36.4-46.3) fL RDW Coeff of Doyle (11.5-14.5) % Plt Count (130-400) K/uL MPV (9.4-12.4) fL Sodium (136-145) mmol/L Potassium (3.5-5.1) mmol/L Chloride (98-107) mmol/L Carbon Dioxide (21-32) mmol/L Anion Gap (3-11) BUN (6-23) mg/dl Creatinine (0.6-1.4) mg/dl Est Cr Clr Drug Dosing ml/min Est GFR ( Amer) ml/min Est GFR (Non-Af Amer) ml/min BUN/Creatinine Ratio (10-20) Glucose (70-99(Fasting)) mg/dl Osmolality 272 L (280-300) mOsm/kg Calcium (8.5-10.1) mg/dl Urine Osmolality (500-800) mOsm/kg Hospital Course (1) Weakness: (2) Acute hyponatremia: This is a 76-year-old male with history of Crohn's disease with ileostomy, h ypertension, CKD, GERD and other medical problems listed below who presents with generalized weakness and fatigue over the past 3 days and was found to have mild hyponatremia. Generalized weakness and fatigue over the past 3 days in the setting of upper teeth removal/denture fitting Has been seen by nephrology with suspected low solute diet due to dental issues. Instructed to limit fluid intake to 50 ounces daily with 1-2 protein shakes until teeth return to normal Na 130 today (baseline mid 130s). Serum osm 272, urine osm 237 Afebrile, no leukocytosis or evidence of infection, TSH and procal WNL Fluid restriction, boost twice daily, soft bite-size diet PT - okay to return home (3) CKD (chronic kidney disease): Baseline Cr per outpatient labs ~ 1.7. Cr 2.0 on day of discharge Pt will have follow up lab work in 3 days, , 10/06 Continue sodium bicarb for history of acidosis (4) Crohn's disease: (5) Ileostomy present: Output normal, per patient. Continue cholestyramine (6) HTN (hypertension): Atenolol discontinued yesterday by PCP due to lightheadedness. Normotensive BP, 119/73 at discharge Pt remains stable and requesting to be discharged. His lab work is stable with sodium 131, cr 2.0. Will discharge with close outpt follow up along with repeat BMP on 10/06. Also recommend follow up with nephrology next available. PCP to arrange this. Pt offers no acute concerns today and feels all symptoms have resumes and is ready to return home. Patient seen in collaboration with Dr. Powell. Please see addendum. Total Time Total Time Spent Total Time Spent (In Minutes): 45 minutes Discharge Plan Discharge Items Patient Disposition: Home - Self-Care Reason For Visit: HYPONATREMIA, GENERALIZED WEAKNESS Discharge Diagnosis: Generalized Weakness acute on chronic hyponatremia chronic kidney disease Activity: Resume your previous activity Weightbearing: Full weightbearing Non-emergency contact: Primary Care Provider Call non-emergency contact if: you have any medication questions, your symptoms worsen, you have a fever and your temperature is above 101 Follow-up/Referrals: Claudia Polanco MD, PhD [Physician] - (Date & Time 11/24/2021 11:00 AM Provider Claudia Polanco MD Department Nephrology, [facility] ) Neil Whitlock, DO [Primary Care Provider] - (Date & Time 10/10/2021 11:00 AM Provider Eric Rios MD Department Family Practice [facility] ) Diet: Regular Fluids: 1500ml (6 cups) Addtl Attending Provider Instructions: MEDICATION CHANGES: Potassium Chloride 10meq by mouth daily for 3 days, due to low potassium. Gabapentin was reduced to 800mg by mouth twice daily due to kidney function. SUMMARY OF TEST RESULTS: You were admitted to hospital due to weakness, low sodium and elevated kidney function. Your kidney function and sodium remained stable at discharge. PENDING TEST RESULTS: None RECOMMENDATIONS FOR FOLLOW-UP: Please follow up with your Primary Care Physician as scheduled. You will need blood work done on 10/06/21 at your Primary Care Office for a BMP to monitor kidney function and sodium levels. Please follow up with Nephrology (Kid[facility] Doctor) due to low sodium. Your Primary Care Provider can set this appointment up for you. Continue your fluid restriction of 1500mls daily. Continue Protein Supplements. Avoid anti inflammatory medications including aleve, advil, naproxen, naprosyn, motrin or ibuprofen. OTHER INSTRUCTIONS: Seek medical attention if you have: * temperature above 101 * Weakness or dizziness returns * chest pain or trouble breathing * abdominal pain, nausea, vomiting * diarrhea, dark stools or bloody stools * any unanswered questions or concerns Call 911 if symptoms are severe. Please take good care of yourself. It has been a pleasure taking care of you. Please take care of yourself. If you have any questions regarding your recent hospitalization please contact [facility] and request [facility] Edge[facility] @ [phone]. Eileen Hutchison PA-C Pending Studies at Discharge: No Stand-Alone Forms: My [facility], Smoking Cessation Medications and DC Order Prescriptions: New potassium chloride 10 mEq capsule, extended release 10 meq PO DAILY Qty: 3 0RF Continued tramadol 50 mg tablet 50 mg PO Q6H PRN (Reason: Pain) sodium bicarbonate 650 mg tablet 1,300 mg PO BID omeprazole 20 mg capsule,delayed release(DR/EC) 20 mg PO DAILY allopurinol 100 mg tablet 200 mg PO DAILY cholecalciferol (vitamin D3) [Vitamin D3] 50 mcg (2,000 unit) Tablet 50 mcg PO DAILY ketoconazole 2 % shampoo 1 applic TOPICAL . Q 3 DAYS cholestyramine (with sugar) 4 gram powder in packet 1 ea PO TID Changed gabapentin 800 mg tablet 800 mg PO BID Qty: 30 0RF Discharge Orders: Discharge Order (Routine); Ordered 10/03/21 Ordered By: Eileen Hutchison Admission Data Admit Date/Time: 10/02/21 12:33 Attending Provider: Reyna Powell Admit Provider: Sebastián Gil Primary Care Provider: Neil Whitlock Other Providers: Sebastián Gil ; Eileen Hutchison Other Interventions: Discharge Summary Assessment (RN) Last Done: 10/03/21 12:52 Supervising Physician Co-Signing Physician Notes 76-year-old gentleman with history of Crohn's disease with ileostomy who came in with generalized weakness and fatigue over the past 3 days 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 Patient reports improvement in his strength and sodium level is stable/minimally improved. Patient advised to have low-sodium diet, increase protein intake in diet, soft diet until dental problem is solved. His hyponatremia and weakness is likely secondary to decreased p.o. intake. Patient feels better and back to his baseline and would like to go home. PT cleared him for home. Patient to get his blood test BMP in 3 days upon discharge and is being discharged on a low-dose potassium supplement for few days. Patient to be evaluated by his PCP in a week time and nephrology as an outpatient. On examination, patient on room air, NAD, abdominal examination with ileostomy back with output noted. Strength normal. Neurological examination normal. Other exams as above. I have seen and examined the patient and have discussed the case with the provider above. I agree with the assessment and plan as stated.
== END 2021-10-03 14:25 | disposition home or self-care (01) ==
LOC: 3E 08:03 → ED 08:03 → SUATTDRO 12:33 → 3E 13:53

== ENCOUNTER 2021-11-24 17:44 | Inpatient (IN) ==
[2021-11-24 18:38] LABS: Basophils % (auto) 1.5 %; Eosinophils # (auto) 0.28 K/uL (0-0.50); Eosinophils % (auto) 4.2 %; Hematocrit (blood only) 34.8 % (40.1-51.0); Hemoglobin 12.6 g/dl (14.0-18.0); Immature Granulocytes # (auto) 0.03 K/uL (0.00-0.02); Immature Granulocytes % (auto) 0.5 %; Lymphocytes # (auto) 1.48 K/uL (1.2-3.4); Lymphocytes % (auto) 22.4 %; Mean Corpuscular Hemoglobin 30.1 pg (25.0-34.0); Mean Corpuscular Hgb Conc 36.2 g/dL (32.0-36.0); Mean Corpuscular Volume 83.1 fL (80.0-100.0); Mean Platelet Volume 9.6 fL (9.4-12.4); Monocytes % (auto) 13.6 %; Neutrophils # (auto) 3.83 K/uL (1.4-6.5); Neutrophils % (auto) 57.8 %; Platelet Count 184 K/uL (130-400); RDW Coefficient of Variation 13.2 % (11.5-14.5); RDW Standard Deviation 39.5 fL (36.4-46.3); Red Blood Count 4.19 M/uL (4.63-6.08); White Blood Count 6.62 K/ul (4.8-10.8)
[2021-11-24 19:08] LABS: Albumin Globulin Ratio 1.8 (0.9-2); Albumin Level 4.2 gm/dl (3.4-5.0); BUN Creatinine Ratio 14.2 (10-20); Bilirubin,Total 0.6 mg/dl (0.2-1.0); Calcium 9.2 mg/dl (8.5-10.1); Creatinine Clr Calc Pharmacy 28.5 ml/min; Est GFR (African American) 33.5 ml/min; Est GFR (Non-African American) 28.9 ml/min; Globulin 2.3 gm/dl (2.5-4.0); Potassium 3.6 mmol/L (3.5-5.1); Total Protein 6.5 gm/dl (6.0-8.3)
[2021-11-24] MEDS ORDERED: SODIUM CHLORIDE 0.9% 500 ML IV ONE (19:16)
--- NOTE | 2021-11-24 19:16 | Emergency Department Note ---
Impression & Plan Acute hyponatremia, JAIR (acute kidney injury), Weakness ED Provider Note NAME: LUCA HARTMAN AGE: 76 SEX: M : 1945 ARRIVES VIA: Walk-In INFORMANT: Patient ED PROVIDER(S): Maurizio Zhao DO CHIEF COMPLAINT: weakness HPI: Patient is a 76-year-old gentleman who presents to the ER with past medical history of hyponatremia, Crohn's disease with ileostomy, hypertension and chronic kidney disease. He was referred in to the ER by nephrology following having blood work performed as an outpatient for feeling weak which showed hyponatremia and slight elevation of his creatinine function. He denies any headache or change in vision. No chest pain or shortness of breath. No nausea, vomiting, or diarrhea. Denies any dysuria, urgency, or frequency. He admits to a slight increase in output from his ostomy that is slightly more liquid than usual. He does feel little lightheaded as well. ROS: See above HPI for pertinent positives & negatives. A total of 10 systems reviewed and were otherwise negative. PAST MEDICAL HISTORY:See Below PAST SURGICAL HISTORY:See Below FAMILY HISTORY:See Below SOCIAL HISTORY:See Below HOME MEDICATIONS:See Below ALLERGIES:See Below VITALS:See Below PHYSICAL EXAMINATION: GENERAL: Sitting up in bed, alert, well appearing, well nourished, no distress, non-toxic EYE EXAM: normal conjunctiva. PERRL and EOM's intact. OROPHARYNX: mucous membranes are moist LUNGS: Clear to auscultation. Normal chest wall mechanics HEART: no murmurs, S1 normal and S2 normal ABDOMEN: abdomen soft, non-tender, normo-active bowel sounds, no masses, no rebound or guarding. UPPER EXTREMITIES: upper extremities are grossly normal. LOWER EXTREMITIES: No pitting edema. NEURO EXAM: Normal sensorium, cranial nerves II-XII intact, normal speech, no weakness of arms, no weakness of legs. No drift. Finger to nose intact. Gross sensation intact. MEDICAL DECISION MAKING: Patient is a 76-year-old male who presents ER for weakness with hyponatremia referred in by nephrology. IV was established blood work was obtained. Labs show no significant leukocytosis. Mild anemia 12.6. BMP with a hyponatremia of 122 with previous sodiums around 130. Creatinine is 2.1 which is pretty close to his baseline. LFTs bilirubin was unremarkable. UA was ordered as well as urine sodium and urine osmolality. He did not give a urine while in the ER. COVID was negative. He was given 500 cc normal saline. Case was discussed with Eileen from [facility] service and patient will be admitted for further work-up. Triage Nursing notes reviewed. Limited review of prior medical records performed Vital Signs: reviewed and remarkable for tachy Differential diagnosis: Infection, dehydration, metabolic abnormality, hypo/hyperglycemia, electrolyte disturbance, anemia, hypoxia, cardiac sources, intracerebral event, toxicologic, neurologic, as well as other pathologies. ER treatment provided: See below Diagnostics interpreted by me: ECG: Sinus rhythm rate of 91 Right axis T wave inversion in V1 and V2 QTC 469 EKG is unchanged from previous performed this year Cardiac Monitoring: An order was placed for continuous cardiac monitoring. The monitor shows a rate of 90 with sinus rhythm. Laboratory studies: As stated above and show below. Imaging studies: See below Consultation(s): Discussed with Eileen Spring from [facility] service for further evaluation Procedures: none Critical Care: None Past Med/Surg History Medical History Chronic kidney disease, stage IV (severe) Crohn's disease No active Crohn's since proctocolectomy and not on medication since 2009. Last verified on December 2019 GI scope GERD (gastroesophageal reflux disease) HTN (hypertension) Ileostomy present Permanent; 2007 Uric acid nephrolithiasis One-time stone episode 2010 Surgical History Hx of appendectomy Status post proctocolectomy 2007 with permanent ileostomy Family History Sister Cancer Breast cancer Grandfather No problems noted. Father Ulcerative colitis Social History Smoking Status: Former smoker Second Hand Exposure: No; Hx Alcohol Use: No Hx Substance Use: No Preferred Language: Surinamese Communication Ability: Effective All Terrain Vehicle Racer Required: No Beliefs That Will Affect Care: None marital status: Current Living Situation: Alone, Spouse and Family Current Living Situation Comment: Lives with . Feels Safe at Home: Yes Assistive Devices: None Allergies Allergies Allergy/AdvReac Type Severity Reaction Status Date / Time oxycodone AdvReac Intermediate MENTAL Verified 07/08/20 18:54 STATUS CHANGES, HALLUCINATIONS Home Meds Home Medications Medication Instructions Recorded Confirmed allopurinol 100 mg tablet 200 mg PO DAILY 07/08/20 10/02/21 cholecalciferol (vitamin D3) 50 50 mcg PO DAILY 07/08/20 10/02/21 mcg (2,000 unit) tablet (Vitamin D3) cholestyramine (with sugar) 4 gram 1 ea PO TID 07/08/20 10/02/21 powder for susp in a packet ketoconazole 2 % shampoo 1 applic topical . Q 3 DAYS 07/08/20 10/02/21 omeprazole 20 mg capsule,delayed 20 mg PO DAILY 07/08/20 10/02/21 release sodium bicarbonate 650 mg tablet 1,300 mg PO BID 10/02/21 10/02/21 tramadol 50 mg tablet 50 mg PO Q6H PRN Pain 10/02/21 10/02/21 Previous Rx's Medication Instructions Recorded gabapentin 800 mg tablet 800 mg PO BID #30 tabs 10/03/21 potassium chloride 10 mEq 10 meq PO DAILY #3 caps 10/03/21 capsule,extended release Results & Data (ED) Vital Signs Vital Signs - 24 hr 11/24/21 18:01 Temperature 36.9 C Temperature Source Oral Pulse Rate 109 H Respiratory Rate 21 Respiratory Effort / Characteristics Non-Labored Respiratory Depth Normal Respiratory Pattern Regular Blood Pressure 114/76 Blood Pressure Mean 88 Pulse Oximetry 95 Oxygen Delivery Method Room Air Sepsis Recent Fever Within 48 Hours No Sepsis New/Unexplained Change in Mental Status N/A Sepsis Action Taken by Nursing No Action Required Laboratory Data Result diagrams: 11/24/21 18:20 11/24/21 18:20 Lab Results 11/24/21 11/24/21 11/24/21 Range/Units 18:20 18:20 18:20 WBC 6.62 (4.8-10.8) K/ul RBC 4.19 L (4.63-6.08) M/uL Hgb 12.6 L (14.0-18.0) g/dl Hct 34.8 L (40.1-51.0) % MCV 83.1 (80.0-100.0) fL MCH 30.1 (25.0-34.0) pg MCHC 36.2 H (32.0-36.0) g/dL RDW Std Deviation 39.5 (36.4-46.3) fL RDW Coeff of Doyle 13.2 (11.5-14.5) % Plt Count 184 (130-400) K/uL MPV 9.6 (9.4-12.4) fL Immature Gran % (Auto) 0.5 % Neut % (Auto) 57.8 % Lymph % (Auto) 22.4 % [place] % (Auto) 13.6 % Eos % (Auto) 4.2 % Baso % (Auto) 1.5 % Neut # (Auto) 3.83 (1.4-6.5) K/uL Lymph # (Auto) 1.48 (1.2-3.4) K/uL [place] # (Auto) 0.90 H (0.24-0.82) K/uL Eos # (Auto) 0.28 (0-0.50) K/uL Baso # (Auto) 0.10 (0-0.2) K/uL Immature Gran # (Auto) 0.03 H (0.00-0.02) K/uL Sodium 122 L (136-145) mmol/L Potassium 3.6 (3.5-5.1) mmol/L Chloride 83 L (98-107) mmol/L Carbon Dioxide 29 (21-32) mmol/L Anion Gap 10 (3-11) BUN 30 H (6-23) mg/dl Creatinine 2.12 H (0.6-1.4) mg/dl Est Cr Clr Drug Dosing 28.5 ml/min Est GFR ( Amer) 33.5 ml/min Est GFR (Non-Af Amer) 28.9 ml/min BUN/Creatinine Ratio 14.2 (10-20) Glucose 113 H (70-99(Fasting)) mg/dl Osmolality 260 L (280-300) mOsm/kg Calcium 9.2 (8.5-10.1) mg/dl Total Bilirubin 0.6 (0.2-1.0) mg/dl AST 25 (13-39) U/L ALT 15 (7-52) U/L Alkaline Phosphatase 150 H (34-104) U/L Total Protein 6.5 (6.0-8.3) gm/dl Albumin 4.2 (3.4-5.0) gm/dl Globulin 2.3 L (2.5-4.0) gm/dl Albumin/Globulin Ratio 1.8 (0.9-2) SARS-CoV-2, RNA, NAAT (NEGATIVE) 11/24/21 Range/Units 18:44 WBC (4.8-10.8) K/ul RBC (4.63-6.08) M/uL Hgb (14.0-18.0) g/dl Hct (40.1-51.0) % MCV (80.0-100.0) fL MCH (25.0-34.0) pg MCHC (32.0-36.0) g/dL RDW Std Deviation (36.4-46.3) fL RDW Coeff of Doyle (11.5-14.5) % Plt Count (130-400) K/uL MPV (9.4-12.4) fL Immature Gran % (Auto) % Neut % (Auto) % Lymph % (Auto) % [place] % (Auto) % Eos % (Auto) % Baso % (Auto) % Neut # (Auto) (1.4-6.5) K/uL Lymph # (Auto) (1.2-3.4) K/uL [place] # (Auto) (0.24-0.82) K/uL Eos # (Auto) (0-0.50) K/uL Baso # (Auto) (0-0.2) K/uL Immature Gran # (Auto) (0.00-0.02) K/uL Sodium (136-145) mmol/L Potassium (3.5-5.1) mmol/L Chloride (98-107) mmol/L Carbon Dioxide (21-32) mmol/L Anion Gap (3-11) BUN (6-23) mg/dl Creatinine (0.6-1.4) mg/dl Est Cr Clr Drug Dosing ml/min Est GFR ( Amer) ml/min Est GFR (Non-Af Amer) ml/min BUN/Creatinine Ratio (10-20) Glucose (70-99(Fasting)) mg/dl Osmolality (280-300) mOsm/kg Calcium (8.5-10.1) mg/dl Total Bilirubin (0.2-1.0) mg/dl AST (13-39) U/L ALT (7-52) U/L Alkaline Phosphatase (34-104) U/L Total Protein (6.0-8.3) gm/dl Albumin (3.4-5.0) gm/dl Globulin (2.5-4.0) gm/dl Albumin/Globulin Ratio (0.9-2) SARS-CoV-2, RNA, NAAT NEGATIVE (NEGATIVE) Discharge Plan Visit Data Chief Complaint: Referred by Doctor Stated Complaint: LOW SODIUM LEVELS, WEAKNESS, REF BY DOC ED Provider: Maurizio Zhao Discharge Problem: Acute hyponatremia, JAIR (acute kidney injury), Weakness Forms Stand Alone Forms: My [facility] [employer] Prescriptions Prescriptions: No Action tramadol 50 mg tablet 50 mg PO Q6H PRN (Reason: Pain) sodium bicarbonate 650 mg tablet 1,300 mg PO BID potassium chloride 10 mEq capsule, extended release 10 meq PO DAILY Qty: 3 0RF gabapentin 800 mg tablet 800 mg PO BID Qty: 30 0RF omeprazole 20 mg capsule,delayed release(DR/EC) 20 mg PO DAILY allopurinol 100 mg tablet 200 mg PO DAILY cholecalciferol (vitamin D3) [Vitamin D3] 50 mcg (2,000 unit) Tablet 50 mcg PO DAILY ketoconazole 2 % shampoo 1 applic TOPICAL . Q 3 DAYS cholestyramine (with sugar) 4 gram powder in packet 1 ea PO TID Referrals Referrals: Neil Whitlock DO [Primary Care Provider] -
--- NOTE | 2021-11-24 19:51 | History & Physical Report ---
Date of Service November 24, 2021 Assessment & Plan (1) Chronic hyponatremia: (2) Weakness: (3) Chronic kidney disease, stage IV (severe): (4) Crohn's disease: (5) Ileostomy present: (6) HTN (hypertension): Plan This is a 76-year-old male who has a significant past medical history of Crohn's disease status post ileostomy since early , chronic hyponatremia, hyperparathyroidism, HTN, HLD, nonproteinuric CKD stage IV, GERD who presents to ED at the referral of chicken handler due to worsening low sodium. Acute on Chronic Hyponatremia - currently follow 34-40oz fluid restriction daily Generalized Weakness CKD IV - follows Dr. Polanco, baseline Cr ~ 1.7- 2 Crohn's Disease s/p Ileostomy HTN Please refer to Dr. Neumann Addendum for details regarding assessment and plan. History of Present Illness Chief Complaint: Referred by Dr. Polanco due to worsening hyponatremia. Primary Care Provider: Neil Whitlock, DO This is a 76-year-old male who has a significant past medical history of Crohn's disease status post ileostomy since early , chronic hyponatremia, hyperparathyroidism, HTN, HLD, nonproteinuric CKD stage IV, GERD who presents to ED at the referral of chicken handler due to worsening low sodium. Pt follows closely with Dr. Polanco of nephrology. He was seen in clinic today. He complains of being general weak and easily fatigued the past 3 weeks. He denies any f/c/s, lightheaded, syncope, fall, chest pain, sob, cough, n/v, abd pain, dysuria, increased urg/freq with urination. He complains of feeling off balanced from time to time. He has noticed a slight increase in output from his ostomy and that stool is much more liquid the past 5 days as opposed to any solid matter. He still is trying to remain active despite lack of energy. He rode his drywall hanger today and stated, "that took it out of me." In ED he remained hemodynamically stable. Lab work notable for sodium 122, chloride 83, BUN 30, creatinine 2.12, serum osmolality 260 and H&H 12.6 and 34.8. He did receive 500 mL IV fluid in ED. Allergies Allergy/AdvReac Type Severity Reaction Status Date / Time oxycodone AdvReac Intermediate MENTAL Verified 11/24/21 19:31 STATUS CHANGES, HALLUCINATIONS Home Medications Medication Instructions Recorded Confirmed Type allopurinol 100 mg tablet 200 mg PO DAILY 07/08/20 11/24/21 History cholestyramine (with sugar) 4 gram 1 ea PO TID 07/08/20 11/24/21 History powder for susp in a packet omeprazole 20 mg capsule,delayed 20 mg PO QAM 07/08/20 11/24/21 History release sodium bicarbonate 650 mg tablet 1,300 mg PO BID 10/02/21 11/24/21 History tramadol 50 mg tablet 50 mg PO Q6H PRN Pain 10/02/21 11/24/21 History gabapentin 800 mg tablet 800 mg PO BID #30 tabs 10/03/21 11/24/21 Rx cholecalciferol (vitamin D3) 25 25 mcg PO BID 11/24/21 11/24/21 History mcg (1,000 unit) tablet (Vitamin D3) gabapentin 800 mg tablet 1,600 mg PO HS 11/24/21 11/24/21 History loperamide 2 mg capsule 2 mg PO QID PRN Diarrhea 11/24/21 11/24/21 History multivitamin 1 tab PO DAILY 11/24/21 11/24/21 History Past Med/Surg History Medical History (Updated 11/24/21 @ 19:50 by Eileen Hutchison PA-C) Chronic kidney disease, stage IV (severe) Crohn's disease No active Crohn's since proctocolectomy and not on medication since 2009. Last verified on December 2019 GI scope GERD (gastroesophageal reflux disease) HTN (hypertension) Ileostomy present Permanent; 2007 Uric acid nephrolithiasis One-time stone episode 2010 Weakness Surgical History Hx of appendectomy Hx of cataract surgery Hx of cholecystectomy Hx of inguinal hernia surgery Status post proctocolectomy 2007 with permanent ileostomy Family History Sister Cancer Breast cancer Grandfather No problems noted. Father Ulcerative colitis Social History Smoking Status: Never smoker Second Hand Exposure: No; Hx Alcohol Use: Yes Alcohol type: beer Hx Substance Use: No Preferred Language: Syriac Communication Ability: Effective [employer] Required: No Beliefs That Will Affect Care: None marital status: Current Living Situation: Spouse Current Living Situation Comment: Lives with . Feels Safe at Home: Yes Assistive Devices: None Review of Systems Review of Systems: All systems reviewed & are unremarkable except as noted in HPI & below Physical Exam Physical Exam: Constitutional: WD/WN, vitals as above, NAD, sitting up in bed, pleasant, conversing easily Head: Normocephalic, Atraumatic Eyes: PERRL, conjunctivae normal, anicteric sclerae ENMT: external ear and nose normal, oropharynx normal Neck: trachea midline, no thyromegaly normal visual inspection Respiratory: normal respiratory effort, lungs clear to auscultation, no wheeze, rales, rhonchi. Normal insp/exp effort, no accessory muscle use Cardiovascular: RRR, no murmur, no edema Vessels: no JVD or carotid bruit Chest: normal inspection of chest Abdomen: normal bowel sounds, soft, nontender, no hepatosplenomegaly +RLQ Ileostomy with liquid stool output Musculoskeletal: no cyanosis or clubbing, extremities motor strength 5/5 Skin: no rashes, warm and dry normal turgor Neurologic: PERRL, EOMI, accommodation nl, no face palsy, no dysarthria CN's II-XI intact bilaterally and moves all extremities Psychiatric: A+Ox3, euthymic affect Lymphatic: no cervical or axillary lymphadenopathy : deferred Results & Data Results & Data ([facility]) Vital Signs (Past 12 Hours) Vital Signs Temp Pulse Pulse Pulse Resp BP BP 11/24/21 19:25 83 18 105/66 11/24/21 18:15 78 22 11/24/21 18:01 36.9 C 109 H 21 114/76 BP Pulse Ox O2 Del Method 11/24/21 19:25 95 Room Air 11/24/21 18:15 105/66 95 11/24/21 18:01 95 Room Air Medications Administered Medication List Sodium Chloride (Nss) 500 mls @ 999 mls/hr IV .Q31M ONE Stop: 11/24/21 19:46 Last Admin: 11/24/21 19:25 Dose: 999 mls/hr Documented By: ML ECG Rate (beats per minute): 91 Rhythm: normal sinus Additional Comments: qtc 469ms COVID-19 Results Results COVID-19 Adm Lab Results: RBC 4.19 M/uL (4.63-6.08) L 11/24/21 WBC 6.62 K/ul (4.8-10.8) 11/24/21 Hgb 12.6 g/dl (14.0-18.0) L 11/24/21 Hct 34.8 % (40.1-51.0) L 11/24/21 Plt Count 184 K/uL (130-400) 11/24/21 Neutrophils (%) (Auto) 57.8 % 11/24/21 Lymphocytes (%) (Auto) 22.4 % 11/24/21 Monocytes # (Auto) 0.90 K/uL (0.24-0.82) H 11/24/21 Eosinophils # (Auto) 0.28 K/uL (0-0.50) 11/24/21 Immature Granulocyte % (Auto) 0.5 % 11/24/21 Neutrophils # (Auto) 3.83 K/uL (1.4-6.5) 11/24/21 Lymphocytes # (Auto) 1.48 K/uL (1.2-3.4) 11/24/21 Monocytes # (Auto) 0.90 K/uL (0.24-0.82) H 11/24/21 Eosinophils # (Auto) 0.28 K/uL (0-0.50) 11/24/21 Basophils # (Auto) 0.10 K/uL (0-0.2) 11/24/21 Immature Granulocyte # (Auto) 0.03 K/uL (0.00-0.02) H 11/24 Na 123 mmol/L (136-145) L 11/24/21 K 3.3 mmol/L (3.5-5.1) L 11/24/21 Cl 85 mmol/L (98-107) L 11/24/21 CO2 30 mmol/L (21-32) 11/24/21 Anion Gap 8 (3-11) 11/24/21 BUN 27 mg/dl (6-23) H 11/24/21 Creatinine 1.86 mg/dl (0.6-1.4) H 11/24/21 BUN/Creatinine Ratio 14.5 (10-20) 11/24/21 Glucose Level 109 mg/dl (70-99(Fasting)) H 11/24/21 Ca 8.7 mg/dl (8.5-10.1) 11/24/21 Total Bilirubin 0.6 mg/dl (0.2-1.0) 11/24/21 AST/SGOT 25 U/L (13-39) 11/24/21 ALT/SGPT 15 U/L (7-52) 11/24/21 Alkaline Phosphatase 150 U/L (34-104) H 11/24/21 Total Protein 6.5 gm/dl (6.0-8.3) 11/24/21 Albumin 4.2 gm/dl (3.4-5.0) 11/24/21 Globulin 2.3 gm/dl (2.5-4.0) L 11/24/21 Albumin/Globulin Ratio 1.8 (0.9-2) 11/24/21 SARS-CoV-2, RNA, NAAT NEGATIVE (NEGATIVE) 11/24/21 Code Status & VTE Plan Code Status FULL CODE Supervising Physician Co-Signing Physician Notes IM ATTENDING : Patient seen and examined. History obtained from patient and records. Preceding documentation by Ms. Eileen Hutchison PA-C reviewed. FINAL ASSESSMENT AND PLAN as follows : Acute on chronic hyponatremia ? Secondary to diarrhea rule out C. difficile hx Crohn's disease status post surgery Hypertension, BP on the lower side CRI, creatinine at baseline Chronic anemia, hemoglobin at baseline Hyperglycemia rule out DM Past tobacco abuse Medical telemetry Careful correction of sodium Nephrology consult Re: Acute on chronic hyponatremia Stool C. difficile Check hemoglobin A1c DVT prophylaxis with heparin subcu Full code Text document was generated using [employer] voice recognition software. It may contain grammatical or spelling errors. Kindly contact undersigned for clarification of any documentation item in question.
[2021-11-24 22:18] LABS: Appearance Urine Clear (Clear); Bilirubin Urine Negative (Negative); Blood Urine Negative (Negative); Color Urine Yellow; Glucose Urine UA Negative (Negative); Ketones Urine Negative (Negative); Leukocyte Esterase Urine Negative (Negative); Nitrite Urine Negative (Negative); Protein Urine Negative (Negative); Urobilinogen Urine Negative (Negative); pH Urine 7.5 (4.5-7.5)
[2021-11-24] MEDS ORDERED: PROMETHAZINE HCL 6.25 MG in SODIUM CHLORIDE 0.9% 50 ML IV PRN (23:09)
[2021-11-24] MEDS ORDERED: oxyCODONE HCL IR 5 MG TAB (IMMEDIATE RELEASE) PO PRN (23:09)
[2021-11-24] MEDS ORDERED: ACETAMINOPHEN 325 MG TAB PO PRN (23:09)
[2021-11-24] MEDS ORDERED: HYDROCODONE/ACETAMOPHEN 5/325MG TAB PO PRN (23:35)
[2021-11-24 23:37] LABS: BUN Creatinine Ratio 14.5 (10-20); Calcium 8.7 mg/dl (8.5-10.1); Creatinine Clr Calc Pharmacy 33.8 ml/min; Est GFR (African American) 39.3 ml/min; Est GFR (Non-African American) 33.9 ml/min; Potassium 3.3 mmol/L (3.5-5.1)
[2021-11-25] MEDS ORDERED: POTASSIUM CHLORIDE CRTAB 20 MEQ TABCR PO STA (00:07)
[2021-11-25] MEDS ORDERED: SODIUM CHLORIDE 0.9% 1000ML 1,000 ML IV ONE (00:08)
[2021-11-25] MEDS: GABAPENTIN 400 MG CAP PO SCH ×2 (00:21→20:19)
[2021-11-25 04:15] LABS: Basophils # (auto) 0.06 K/uL (0-0.2); Basophils % (auto) 1.2 %; Eosinophils # (auto) 0.18 K/uL (0-0.50); Eosinophils % (auto) 3.6 %; Hematocrit (blood only) 30.3 % (40.1-51.0); Hemoglobin 10.9 g/dl (14.0-18.0); Immature Granulocytes # (auto) 0.01 K/uL (0.00-0.02); Immature Granulocytes % (auto) 0.2 %; Lymphocytes # (auto) 0.95 K/uL (1.2-3.4); Mean Corpuscular Hemoglobin 29.9 pg (25.0-34.0); Mean Corpuscular Volume 83.2 fL (80.0-100.0); Mean Platelet Volume 9.9 fL (9.4-12.4); Platelet Count 157 K/uL (130-400); RDW Standard Deviation 39.6 fL (36.4-46.3); Red Blood Count 3.64 M/uL (4.63-6.08)
[2021-11-25 04:35] LABS: BUN Creatinine Ratio 15.6 (10-20); Calcium 8.6 mg/dl (8.5-10.1); Creatinine Clr Calc Pharmacy 36.3 ml/min; Est GFR (African American) 42.9 ml/min; Potassium 3.3 mmol/L (3.5-5.1)
[2021-11-25] MEDS: HEPARIN SOD 5,000 UNIT/0.5 ML VIAL SQ SCH ×3 (05:05→20:25)
[2021-11-25 06:37] LABS: Estimated Average Glucose 123 mg/dl; Hemoglobin A1C 5.9 % (4.5-5.6)
[2021-11-25] MEDS: PANTOprazole 40 MG TAB PO SCH (08:32)
[2021-11-25] MEDS: GABAPENTIN 100 MG CAP PO SCH ×2 (08:32→14:20)
[2021-11-25] MEDS: MULTIVITAMIN TAB PO SCH (08:32)
[2021-11-25] MEDS: allopurinoL 100 MG TAB PO SCH (08:32)
[2021-11-25] MEDS ORDERED: SODIUM BICARBONATE 650 MG TAB PO SCH (09:00)
--- NOTE | 2021-11-25 09:16 | Nephrology Consultation ---
Date of Consultation November 25, 2021 Assessment & Plan (1) Disorders of fluid, electrolyte, and acid-base balance: severe hyponatremia in a patient predisposed to this issue with low potassium and metabolic acidosis currently overcompensated /over treated w/ medications. His urine/serum studies are inconclusive but responding as though he has euvolemic hypotonic hyponatremia. he was not orthostatic in clinic yesterday and his TFTs were unremarkable. lung nodules have not been followed up. likeliest though I suspect is low solute diet made more challenging w/ his dental issues htis summer and ileostomy. hyponatremia complicated by prerenal JAIR -stopped sodium bicarb -stop NS -protein shakes don't count to FR of 1.8L -trial urea bid 15 gm -will give K 40 mEq po tid until K 4 > he had 40 mEQ po at [facility] -bmp q8h -goal sNa is 127 tomorrow AM -consider chest CT as he is overdue for f/u of lung nodules (annual scan last done 08/2019) Please consider diet consult for how he can eat more protein w/ current dental issues > may be as simple as increased protein shakes; at baseline does one daily (2) CKD (chronic kidney disease) stage 3, GFR 30-59 ml/min: prerenal JAIR on CKD 3 has resolved; baselien creatinine past year 1.7-1.8. -daily bmp -gentle FR as above d/t recent JAIR History of Present Illness Reason for Consultation: hyponatremia Requesting Physician: Dr Neumann Attending Physician: Sebastián Gil MD History of Present Illness 70 y/o M whom I'm asked to see for hyponatremia was admitted overnight after I sent him to hospital for outpatient serum sodium 123 and recurrent JAIR w/ creatinine 2.1. PMH includes nonproteinuric CKD 3b w/ baseline creatinine 1.7-1.8, Crohn's s/p ileostomy, chronic hyponatremia, chronic metabolic acidosis on bicarb supplements, secondary hyperparathyroidism, HL, GERD, mutlple BL pulmonary nodules for which annual scans CT had been planned. He has had at least 2 episodes of JAIR in the past 6 wks w/ creat up to 2.3. He has also had extensive dental work this summer which has somewhat interrupted his routine diet as he can't chew many foods, including customary protein sources for him like meat. He obs'd here in mid September w/ low Na (at about 130) and generalized weakness; f/u labs as OP notable for JAIR on CKD and pt advised to increase fluid intake from his 40 0z daily fluid intake baseline which he did. f/u labs in early October w/ sNa 124 but improvement of creat back to baseline. AT [facility] visit yesterday he denied changes in ostomy output or edema, dyspnea. 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 ongoing fatigue today; no n/v, no excessive thirst, no sob, no change in ielosteomy output, no change in uop, no edema. His presenting sodium was 122 w. K 3.6, creat 2.1 w/ serum osms 260, u Osms 262, Armand <10. He has 500 mL NS in ER; then NS at 100 mL / hr. Na this am 122, K 3.3, creat 1.7. Allergies Allergy/AdvReac Type Severity Reaction Status Date / Time oxycodone AdvReac Intermediate MENTAL Verified 11/24/21 19:31 STATUS CHANGES, HALLUCINATIONS Home Medications Medication Instructions Recorded Confirmed Type allopurinol 100 mg tablet 200 mg PO DAILY 07/08/20 11/24/21 History cholestyramine (with sugar) 4 gram 1 ea PO TID 07/08/20 11/24/21 History powder for susp in a packet omeprazole 20 mg capsule,delayed 20 mg PO QAM 07/08/20 11/24/21 History release sodium bicarbonate 650 mg tablet 1,300 mg PO BID 10/02/21 11/24/21 History tramadol 50 mg tablet 50 mg PO Q6H PRN Pain 10/02/21 11/24/21 History gabapentin 800 mg tablet 800 mg PO BID #30 tabs 10/03/21 11/24/21 Rx cholecalciferol (vitamin D3) 25 25 mcg PO BID 11/24/21 11/24/21 History mcg (1,000 unit) tablet (Vitamin D3) gabapentin 800 mg tablet 1,600 mg PO HS 11/24/21 11/24/21 History loperamide 2 mg capsule 2 mg PO QID PRN Diarrhea 11/24/21 11/24/21 History multivitamin 1 tab PO DAILY 11/24/21 11/24/21 History Patient History Medical History Chronic hyponatremia CKD (chronic kidney disease) stage 3, GFR 30-59 ml/min Crohn's disease No active Crohn's since proctocolectomy and not on medication since 2009. Last verified on December 2019 GI scope GERD (gastroesophageal reflux disease) HTN (hypertension) Ileostomy present Permanent; 2007 Metabolic acidosis Uric acid nephrolithiasis One-time stone episode 2011 Weakness Surgical History Hx of appendectomy Hx of cataract surgery Hx of cholecystectomy Hx of inguinal hernia surgery Status post proctocolectomy 2007 with permanent ileostomy Family History Sister Cancer Breast cancer Grandfather No problems noted. 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 Feels Safe at Home: Yes Assistive Devices: None Review of Systems Review of Systems: All systems reviewed & are unremarkable except as noted in HPI & below Physical Exam Constitutional: well developed, well nourished and cooperative (michael stone for exam); no acute distress Eyes: EOM intact bilaterally ENMT: Ears: no external ear abnormality Nose: no external nose abnormality Mouth: + dry oral mucous membranes Neck: no nuchal rigidity Respiratory: normal respiratory effort Auscultation: + diminished lung s ounds Cardiovascular: RRR, no murmur, no edema Gastrointestinal (Abdomen): Inspection/Auscultation: normal bowel sounds Percussion/Palpation: abdomen soft; abdomen nontender Musculoskeletal: Extremities: strength 5/5 throughout Skin: no rashes, warm and dry Neurologic: givens, fluent speech, no tremor Psychiatric: Orientation: oriented x 3 Speech: normal rate/rhythm/volume of speech Results & Data ([facility]) Vital Signs (Past 12 Hours) Vital Signs Temp Pulse Pulse Resp BP BP BP 11/25/21 07:41 36.3 C L 64 17 105/63 11/25/21 03:23 36.3 C L 67 18 119/73 11/24/21 23:17 73 11/24/21 23:23 36.3 C L 71 18 116/75 11/24/21 23:09 36.3 C L 71 18 116/75 11/24/21 23:09 11/24/21 22:58 65 111/66 Pulse Ox Pulse Ox O2 Del Method O2 Del Method 11/25/21 07:41 94 Room Air 11/25/21 03:23 96 Room Air 11/24/21 23:17 11/24/21 23:23 95 Room Air 11/24/21 23:09 95 Room Air 11/24/21 23:09 95 Room Air 11/24/21 22:58 95 Room Air Laboratory Results 11/25/21 03:57 11/25/21 03:57
[2021-11-25] MEDS: CHOLESTYRAMINE LIGHT 4 GM PKT PO SCH ×3 (09:18→21:24)
[2021-11-25 10:35] LABS: BUN Creatinine Ratio 15.2 (10-20); Calcium 8.6 mg/dl (8.5-10.1); Creatinine Clr Calc Pharmacy 38.3 ml/min; Est GFR (African American) 45.7 ml/min; Est GFR (Non-African American) 39.5 ml/min; Potassium 3.5 mmol/L (3.5-5.1)
[2021-11-25] MEDS: UREA (UREA-NA) 15 GM PACK PO SCH ×2 (10:57→20:21)
[2021-11-25] MEDS: POTASSIUM CHLORIDE CRTAB 20 MEQ TABCR PO SCH ×3 (10:57→20:20)
--- NOTE | 2021-11-25 10:57 | Hospitalist Progress Note ---
Date of Service November 25, 2021 Assessment & Plan (1) Chronic hyponatremia: (2) Weakness: (3) Chronic kidney disease, stage IV (severe): (4) Crohn's disease: (5) Ileostomy present: (6) HTN (hypertension): Plan per admission service notes with addendum: Acute on chronic hyponatremia ? Secondary to diarrhea rule out C. difficile hx Crohn's disease status post surgery -- Stool studies pending will consult GI continue Cholestyramine TID -- Na still at 122 Nephro on board Urea 15g BID K 40 meq TID Hypertension, BP on the lower side -- given IV NSS monitor CRI, creatinine at baseline -- crea 1.6 Chronic anemia, hemoglobin at baseline -- monitor Hyperglycemia rule out DM -- a1c 5.9 outpatient ff up Past tobacco abuse DVT prophylaxis with heparin subcu Full code Disposition anticipate d/c home when medically stable plan of care discussed with patient in detail and at length all questions answered he is understanding, agreeable, comfortable with the plan of care Admission and Anticipated Discharge Date Admission Date: November 24, 2021 Subjective ff up for hyponatremia, etc seen resting in bed, comfortable states he feels fine overall denies headache, nausea, weakness today no chest pain, dyspnea, palpitations, dizziness reports colostomy output has been more loose lately only takes cholestyramine 2x a day, but takes imodium frequently no abdominal pain, no hematochezia no other symptoms Review of Systems Review of Systems: all noted and negative except for above Physical Exam Physical Exam: General- oriented x 3, not in distress, speaks in sentences with no effort or accessory muscle use Head- atraumatic Eyes- PERRL, EOMI, anicteric ENT- oropharynx clear Neck- supple, no JVD, no adenopathy, no thyromegaly; carotids +2/2, no bruits appreciated Lungs- clear to auscultation bilaterally, no rales/wheezes Heart- normal rate, regular rhythm; no murmur, no gallop, no rub appreciated Abdomen- normal bowel sounds, nondistended, soft, nontender, no masses or hepatosplenomegaly colostomy: loose stools Extremities- no pretibial edema, no calf tenderness; peripheral pulses intact Neuro- alert, oriented x 3; CN 2-12 grossly intact; motor 5/5 bilaterally;sensation 100% on all extremities; no other gross focal neurologic deficits Skin- warm & dry Results & Data Results & Data ([facility]) Vital Signs (Past 12 Hours) Vital Signs Temp Pulse Pulse Resp BP BP BP 11/25/21 07:41 36.3 C L 64 17 105/63 11/25/21 03:23 36.3 C L 67 18 119/73 11/24/21 23:17 73 11/24/21 23:23 36.3 C L 71 18 116/75 11/24/21 23:09 36.3 C L 71 18 116/75 11/24/21 23:09 11/24/21 22:58 65 111/66 Pulse Ox Pulse Ox O2 Del Method O2 Del Method 11/25/21 07:41 94 Room Air 11/25/21 03:23 96 Room Air 11/24/21 23:17 11/24/21 23:23 95 Room Air 11/24/21 23:09 95 Room Air 11/24/21 23:09 95 Room Air 11/24/21 22:58 95 Room Air all noted and reviewed including below
--- NOTE | 2021-11-25 11:18 | Gastrointestinal Consultation ---
Date of Consultation November 25, 2021 Assessment & Plan (1) Crohn's disease: 76 year old male w/ Crohn's disease s/p proctocolectomy and permanent ileostomy in 2007 with adenomatous polyp containing dysplastic features (DALM), SBE and ileoscopy w/o signs of active IBD and MRE w/o signs of small bowel IBD in 2019 admitted w/ acute on chronic hyponatremia, loose stools x 1 month. C.diff negative. He questions if his dietary changes over the last month could be contributing to this as he has been eating only liquids and soft foods Check stool culture and fecal fat Can continue home dosing of Questran TID and Imodium as c.diff negative Continue soft/liquid diet as tolerated given his recent dental procedure Per patient, he has OP MRE next week, however, I am able to clarify this given limited access to [facility] records He should have GI follow up after discharge to arrange follow up endoscopies Thank you for allowing us to participate in the care of this patient. Please call with any acute changes, questions or concerns. Please see addendum below with additional recommendation from my supervising physician. Supervising Physician Co-Signing Physician Notes I have personally seen and examined the patient with ALEJANDRO Ortega. Her note reflects my exam and findings. I agree with her impression and plan. Patient may benefit from a trial of Paregoric if available. Wilfrido Hanley M.D. History of Present Illness Reason for Consultation: diarrhea Requesting Physician: Jeffery Attending Physician: Sebastián Gil MD History of Present Illness 76 year old male with history of of Crohn's s/p proctocolectomy and permanent ileostomy in 2007 for Crohn's colitis with adenomatous polyp containing dysplastic features (DALM), SBE and ileoscopy w/o signs of active IBD and MRE w/ o signs of small bowel IBD in 2020, chronic hyponatremia, hyperparathyroidism, HTN, HLD, nonproteinuric CKD stage IV, GERD who presents to ED at the referral of cardiac catheterization technologist due to worsening low sodium. GI was asked to evaluate for diarrhea. Pt notes that he had all his teeth removed about a month ago. Since, he has been eating liquids, soft foods only as he cant chew. Notes around this time is when he had change in his output. Always loose. No semi-formed output. Still emtying his bag as often, no change in frequency, just no formed. Denies seeing any black or bloody stools. No abd pain, nausea, vomiting. No GERD, dysphagia. C.diff negative on admission. Stool studies 2021: negative c.diff. SBE 2019: The examined portion of the jejunum was normal. - Non-bleeding duodenal ulcers. Biopsied. - Erosive gastropathy with no bleeding and no stigmata of recent bleeding. Biopsied. - LA Grade B reflux esophagitis. - Gastroesophageal flap valve classified as Hill Grade III (minimal fold, loose to endoscope, hiatal hernia likely). - All specimens obtained during this procedure were verified by the physician and nurse for location, and patient identification by name and medical record number. Allergies Allergy/AdvReac Type Severity Reaction Status Date / Time oxycodone AdvReac Intermediate MENTAL Verified 11/24/21 19:31 STATUS CHANGES, HALLUCINATIONS Home Medications Medication Instructions Recorded Confirmed Type allopurinol 100 mg tablet 200 mg PO DAILY 07/08/20 11/24/21 History cholestyramine (with sugar) 4 gram 1 ea PO TID 07/08/20 11/24/21 History powder for susp in a packet omeprazole 20 mg capsule,delayed 20 mg PO QAM 07/08/20 11/24/21 History release sodium bicarbonate 650 mg tablet 1,300 mg PO BID 10/02/21 11/24/21 History tramadol 50 mg tablet 50 mg PO Q6H PRN Pain 10/02/21 11/24/21 History gabapentin 800 mg tablet 800 mg PO BID #30 tabs 10/03/21 11/24/21 Rx cholecalciferol (vitamin D3) 25 25 mcg PO BID 11/24/21 11/24/21 History mcg (1,000 unit) tablet (Vitamin D3) gabapentin 800 mg tablet 1,600 mg PO HS 11/24/21 11/24/21 History loperamide 2 mg capsule 2 mg PO QID PRN Diarrhea 11/24/21 11/24/21 History multivitamin 1 tab PO DAILY 11/24/21 11/24/21 History Patient History Medical History Chronic hyponatremia CKD (chronic kidney disease) stage 3, GFR 30-59 ml/min Crohn's disease No active Crohn's since proctocolectomy and not on medication since 2009. Last verified on December 2019 GI scope GERD (gastroesophageal reflux disease) HTN (hypertension) Ileostomy present Permanent; 2007 Metabolic acidosis Uric acid nephrolithiasis One-time stone episode 2010 Weakness Surgical History Hx of appendectomy Hx of cataract surgery Hx of cholecystectomy Hx of inguinal hernia surgery Status post proctocolectomy 2007 with permanent ileostomy Family History Sister Cancer Breast cancer Grandfather No problems noted. 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 Feels Safe at Home: Yes Assistive Devices: None Review of Systems Review of Systems: All systems reviewed & are unremarkable except as noted in HPI & below Physical Exam Constitutional: WD/WN, vitals as above Neck: Thyroid: normal thyroid Respiratory: normal respiratory effort, lungs clear to auscultation Cardiovascular: Rate/Rhythm: regular rate Gastrointestinal (Abdomen): normal bowel sounds, soft, nontender, no hepatosplenomegaly Skin: no rashes, warm and dry Results & Data ([facility]) Vital Signs (Past 12 Hours) Vital Signs Temp Pulse Pulse Resp BP BP Pulse Ox 11/25/21 07:41 36.3 C L 64 17 105/63 94 11/25/21 03:23 36.3 C L 67 18 119/73 96 11/24/21 23:17 73 11/24/21 23:23 36.3 C L 71 18 116/75 95 O2 Del Method 11/25/21 07:41 Room Air 11/25/21 03:23 Room Air 11/24/21 23:17 11/24/21 23:23 Room Air Laboratory Results 11/25/21 11/25/21 11/25/21 Range/Units Unknown 09:40 03:57 WBC (4.8-10.8) K/ul RBC (4.63-6.08) M/uL Hgb (14.0-18.0) g/dl Hct (40.1-51.0) % MCV (80.0-100.0) fL MCH (25.0-34.0) pg MCHC (32.0-36.0) g/dL RDW Std Deviation (36.4-46.3) fL RDW Coeff of Doyle (11.5-14.5) % Plt Count (130-400) K/uL MPV (9.4-12.4) fL Immature Gran % (Auto) % Neut % (Auto) % Lymph % (Auto) % Stephenson % (Auto) % Eos % (Auto) % Baso % (Auto) % Neut # (Auto) (1.4-6.5) K/uL Lymph # (Auto) (1.2-3.4) K/uL Stephenson # (Auto) (0.24-0.82) K/uL Eos # (Auto) (0-0.50) K/uL Baso # (Auto) (0-0.2) K/uL Immature Gran # (Auto) (0.00-0.02) K/uL Sodium 123 L 122 L (136-145) mmol/L Potassium 3.5 3.3 L (3.5-5.1) mmol/L Chloride 87 L 85 L (98-107) mmol/L Carbon Dioxide 29 29 (21-32) mmol/L Anion Gap 7 8 (3-11) BUN 25 H 27 H (6-23) mg/dl Creatinine 1.64 H 1.73 H (0.6-1.4) mg/dl Est Cr Clr Drug Dosing 38.3 36.3 ml/min Est GFR ( Amer) 45.7 42.9 ml/min Est GFR (Non-Af Amer) 39.5 37.0 ml/min BUN/Creatinine Ratio 15.2 15.6 (10-20) Glucose 106 H 112 H (70-99(Fasting)) mg/dl Estimat Average Glucose mg/dl Hemoglobin A1c (4.5-5.6) % Osmolality (280-300) mOsm/kg Calcium 8.6 8.6 (8.5-10.1) mg/dl Magnesium (1.7-2.4) mg/dl Total Bilirubin (0.2-1.0) mg/dl AST (13-39) U/L ALT (7-52) U/L Alkaline Phosphatase (34-104) U/L Total Protein (6.0-8.3) gm/dl Albumin (3.4-5.0) gm/dl Globulin (2.5-4.0) gm/dl Albumin/Globulin Ratio (0.9-2) Urine Color Urine Appearance (Clear) Urine pH (4.5-7.5) Ur Specific Dexter (1.000-1.030) Urine Protein (Negative) Urine Glucose (UA) (Negative) Urine Ketones (Negative) Urine Blood (Negative) Urine Nitrite (Negative) Urine Bilirubin (Negative) Urine Urobilinogen (Negative) Ur Leukocyte Esterase (Negative) Urine Osmolality (500-800) mOsm/kg Ur Random Sodium mmol/L Stl C. diff Tox B Gene Negative Cdiff Gene (Neg) SARS-CoV-2, RNA, NAAT (NEGATIVE) 11/25/21 11/25/21 11/24/21 Range/Units 03:57 03:57 22:56 WBC 5.00 (4.8-10.8) K/ul RBC 3.64 L (4.63-6.08) M/uL Hgb 10.9 L (14.0-18.0) g/dl Hct 30.3 L (40.1-51.0) % MCV 83.2 (80.0-100.0) fL MCH 29.9 (25.0-34.0) pg MCHC 36.0 (32.0-36.0) g/dL RDW Std Deviation 39.6 (36.4-46.3) fL RDW Coeff of Doyle 13.0 (11.5-14.5) % Plt Count 157 (130-400) K/uL MPV 9.9 (9.4-12.4) fL Immature Gran % (Auto) 0.2 % Neut % (Auto) 64.0 % Lymph % (Auto) 19.0 % Stephenson % (Auto) 12.0 % Eos % (Auto) 3.6 % Baso % (Auto) 1.2 % Neut # (Auto) 3.20 (1.4-6.5) K/uL Lymph # (Auto) 0.95 L (1.2-3.4) K/uL Stephenson # (Auto) 0.60 (0.24-0.82) K/uL Eos # (Auto) 0.18 (0-0.50) K/uL Baso # (Auto) 0.06 (0-0.2) K/uL Immature Gran # (Auto) 0.01 (0.00-0.02) K/uL Sodium 123 L (136-145) mmol/L Potassium 3.3 L (3.5-5.1) mmol/L Chloride 85 L (98-107) mmol/L Carbon Dioxide 30 (21-32) mmol/L Anion Gap 8 (3-11) BUN 27 H (6-23) mg/dl Creatinine 1.86 H (0.6-1.4) mg/dl Est Cr Clr Drug Dosing 33.8 ml/min Est GFR ( Amer) 39.3 ml/min Est GFR (Non-Af Amer) 33.9 ml/min BUN/Creatinine Ratio 14.5 (10-20) Glucose 109 H (70-99(Fasting)) mg/dl Estimat Average Glucose 123 mg/dl Hemoglobin A1c 5.9 H (4.5-5.6) % Osmolality (280-300) mOsm/kg Calcium 8.7 (8.5-10.1) mg/dl Magnesium (1.7-2.4) mg/dl Total Bilirubin (0.2-1.0) mg/dl AST (13-39) U/L ALT (7-52) U/L Alkaline Phosphatase (34-104) U/L Total Protein (6.0-8.3) gm/dl Albumin (3.4-5.0) gm/dl Globulin (2.5-4.0) gm/dl Albumin/Globulin Ratio (0.9-2) Urine Color Urine Appearance (Clear) Urine pH (4.5-7.5) Ur Specific Dexter (1.000-1.030) Urine Protein (Negative) Urine Glucose (UA) (Negative) Urine Ketones (Negative) Urine Blood (Negative) Urine Nitrite (Negative) Urine Bilirubin (Negative) Urine Urobilinogen (Negative) Ur Leukocyte Esterase (Negative) Urine Osmolality (500-800) mOsm/kg Ur Random Sodium mmol/L Stl C. diff Tox B Gene (Neg) SARS-CoV-2, RNA, NAAT (NEGATIVE) 11/24/21 11/24/21 11/24/21 Range/Units 21:43 21:43 21:43 WBC (4.8-10.8) K/ul RBC (4.63-6.08) M/uL Hgb (14.0-18.0) g/dl Hct (40.1-51.0) % MCV (80.0-100.0) fL MCH (25.0-34.0) pg MCHC (32.0-36.0) g/dL RDW Std Deviation (36.4-46.3) fL RDW Coeff of Doyle (11.5-14.5) % Plt Count (130-400) K/uL MPV (9.4-12.4) fL Immature Gran % (Auto) % Neut % (Auto) % Lymph % (Auto) % Stephenson % (Auto) % Eos % (Auto) % Baso % (Auto) % Neut # (Auto) (1.4-6.5) K/uL Lymph # (Auto) (1.2-3.4) K/uL Stephenson # (Auto) (0.24-0.82) K/uL Eos # (Auto) (0-0.50) K/uL Baso # (Auto) (0-0.2) K/uL Immature Gran # (Auto) (0.00-0.02) K/uL Sodium (136-145) mmol/L Potassium (3.5-5.1) mmol/L Chloride (98-107) mmol/L Carbon Dioxide (21-32) mmol/L Anion Gap (3-11) BUN (6-23) mg/dl Creatinine (0.6-1.4) mg/dl Est Cr Clr Drug Dosing ml/min Est GFR ( Amer) ml/min Est GFR (Non-Af Amer) ml/min BUN/Creatinine Ratio (10-20) Glucose (70-99(Fasting)) mg/dl Estimat Average Glucose mg/dl Hemoglobin A1c (4.5-5.6) % Osmolality (280-300) mOsm/kg Calcium (8.5-10.1) mg/dl Magnesium (1.7-2.4) mg/dl Total Bilirubin (0.2-1.0) mg/dl AST (13-39) U/L ALT (7-52) U/L Alkaline Phosphatase (34-104) U/L Total Protein (6.0-8.3) gm/dl Albumin (3.4-5.0) gm/dl Globulin (2.5-4.0) gm/dl Albumin/Globulin Ratio (0.9-2) Urine Color Yellow Urine Appearance Clear (Clear) Urine pH 7.5 (4.5-7.5) Ur Specific Dexter 1.010 (1.000-1.030) Urine Protein Negative (Negative) Urine Glucose (UA) Negative (Negative) Urine Ketones Negative (Negative) Urine Blood Negative (Negative) Urine Nitrite Negative (Negative) Urine Bilirubin Negative (Negative) Urine Urobilinogen Negative (Negative) Ur Leukocyte Esterase Negative (Negative) Urine Osmolality 262 L (500-800) mOsm/kg Ur Random Sodium < 10 mmol/L Stl C. diff Tox B Gene (Neg) SARS-CoV-2, RNA, NAAT (NEGATIVE) 11/24/21 11/24/21 11/24/21 Range/Units 18:44 18:20 18:20 WBC (4.8-10.8) K/ul RBC (4.63-6.08) M/uL Hgb (14.0-18.0) g/dl Hct (40.1-51.0) % MCV (80.0-100.0) fL MCH (25.0-34.0) pg MCHC (32.0-36.0) g/dL RDW Std Deviation (36.4-46.3) fL RDW Coeff of Doyle (11.5-14.5) % Plt Count (130-400) K/uL MPV (9.4-12.4) fL Immature Gran % (Auto) % Neut % (Auto) % Lymph % (Auto) % Stephenson % (Auto) % Eos % (Auto) % Baso % (Auto) % Neut # (Auto) (1.4-6.5) K/uL Lymph # (Auto) (1.2-3.4) K/uL Stephenson # (Auto) (0.24-0.82) K/uL Eos # (Auto) (0-0.50) K/uL Baso # (Auto) (0-0.2) K/uL Immature Gran # (Auto) (0.00-0.02) K/uL Sodium (136-145) mmol/L Potassium (3.5-5.1) mmol/L Chloride (98-107) mmol/L Carbon Dioxide (21-32) mmol/L Anion Gap (3-11) BUN (6-23) mg/dl Creatinine (0.6-1.4) mg/dl Est Cr Clr Drug Dosing ml/min Est GFR ( Amer) ml/min Est GFR (Non-Af Amer) ml/min BUN/Creatinine Ratio (10-20) Glucose (70-99(Fasting)) mg/dl Estimat Average Glucose mg/dl Hemoglobin A1c (4.5-5.6) % Osmolality 260 L (280-300) mOsm/kg Calcium (8.5-10.1) mg/dl Magnesium 1.8 (1.7-2.4) mg/dl Total Bilirubin (0.2-1.0) mg/dl AST (13-39) U/L ALT (7-52) U/L Alkaline Phosphatase (34-104) U/L Total Protein (6.0-8.3) gm/dl Albumin (3.4-5.0) gm/dl Globulin (2.5-4.0) gm/dl Albumin/Globulin Ratio (0.9-2) Urine Color Urine Appearance (Clear) Urine pH (4.5-7.5) Ur Specific Dexter (1.000-1.030) Urine Protein (Negative) Urine Glucose (UA) (Negative) Urine Ketones (Negative) Urine Blood (Negative) Urine Nitrite (Negative) Urine Bilirubin (Negative) Urine Urobilinogen (Negative) Ur Leukocyte Esterase (Negative) Urine Osmolality (500-800) mOsm/kg Ur Random Sodium mmol/L Stl C. diff Tox B Gene (Neg) SARS-CoV-2, RNA, NAAT NEGATIVE (NEGATIVE) 11/24/21 11/24/21 Range/Units 18:20 18:20 WBC 6.62 (4.8-10.8) K/ul RBC 4.19 L (4.63-6.08) M/uL Hgb 12.6 L (14.0-18.0) g/dl Hct 34.8 L (40.1-51.0) % MCV 83.1 (80.0-100.0) fL MCH 30.1 (25.0-34.0) pg MCHC 36.2 H (32.0-36.0) g/dL RDW Std Deviation 39.5 (36.4-46.3) fL RDW Coeff of Doyle 13.2 (11.5-14.5) % Plt Count 184 (130-400) K/uL MPV 9.6 (9.4-12.4) fL Immature Gran % (Auto) 0.5 % Neut % (Auto) 57.8 % Lymph % (Auto) 22.4 % Stephenson % (Auto) 13.6 % Eos % (Auto) 4.2 % Baso % (Auto) 1.5 % Neut # (Auto) 3.83 (1.4-6.5) K/uL Lymph # (Auto) 1.48 (1.2-3.4) K/uL Stephenson # (Auto) 0.90 H (0.24-0.82) K/uL Eos # (Auto) 0.28 (0-0.50) K/uL Baso # (Auto) 0.10 (0-0.2) K/uL Immature Gran # (Auto) 0.03 H (0.00-0.02) K/uL Sodium 122 L (136-145) mmol/L Potassium 3.6 (3.5-5.1) mmol/L Chloride 83 L (98-107) mmol/L Carbon Dioxide 29 (21-32) mmol/L Anion Gap 10 (3-11) BUN 30 H (6-23) mg/dl Creatinine 2.12 H (0.6-1.4) mg/dl Est Cr Clr Drug Dosing 28.5 ml/min Est GFR ( Amer) 33.5 ml/min Est GFR (Non-Af Amer) 28.9 ml/min BUN/Creatinine Ratio 14.2 (10-20) Glucose 113 H (70-99(Fasting)) mg/dl Estimat Average Glucose mg/dl Hemoglobin A1c (4.5-5.6) % Osmolality (280-300) mOsm/kg Calcium 9.2 (8.5-10.1) mg/dl Magnesium (1.7-2.4) mg/dl Total Bilirubin 0.6 (0.2-1.0) mg/dl AST 25 (13-39) U/L ALT 15 (7-52) U/L Alkaline Phosphatase 150 H (34-104) U/L Total Protein 6.5 (6.0-8.3) gm/dl Albumin 4.2 (3.4-5.0) gm/dl Globulin 2.3 L (2.5-4.0) gm/dl Albumin/Globulin Ratio 1.8 (0.9-2) Urine Color Urine Appearance (Clear) Urine pH (4.5-7.5) Ur Specific Dexter (1.000-1.030) Urine Protein (Negative) Urine Glucose (UA) (Negative) Urine Ketones (Negative) Urine Blood (Negative) Urine Nitrite (Negative) Urine Bilirubin (Negative) Urine Urobilinogen (Negative) Ur Leukocyte Esterase (Negative) Urine Osmolality (500-800) mOsm/kg Ur Random Sodium mmol/L Stl C. diff Tox B Gene (Neg) SARS-CoV-2, RNA, NAAT (NEGATIVE)
--- NOTE | 2021-11-25 13:39 | Electrocardiogram Report ---
Test Reason : Blood Pressure : / mmHG Vent. Rate : 091 BPM Atrial Rate : 091 BPM P-R Int : 196 ms QRS Dur : 094 ms QT Int : 382 ms P-R-T Axes : 041 262 066 degrees QTc Int : 469 ms Poor data quality, interpretation may be adversely affected Normal sinus rhythm Right superior axis deviation Poor R wave progression, consider anterior CA vs. lead placement vs. LVH Abnormal ECG When compared with ECG of 02-OCT-2021 08:22, No significant change was found Confirmed by Leonel Chowdhury ([id number]) on 11/25/2021 1:39:15 PM Referred By: RAMSES GUERRERO Confirmed By:Rob Chowdhury
[2021-11-25 18:17] LABS: BUN Creatinine Ratio 21.8 (10-20); Calcium 8.7 mg/dl (8.5-10.1); Est GFR (African American) 43.8 ml/min; Est GFR (Non-African American) 37.8 ml/min
[2021-11-26 01:24] LABS: BUN Creatinine Ratio 26.5 (10-20); Calcium 8.8 mg/dl (8.5-10.1); Creatinine Clr Calc Pharmacy 34.7 ml/min; Est GFR (African American) 40.6 ml/min; Potassium 4.4 mmol/L (3.5-5.1)
[2021-11-26] MEDS: HEPARIN SOD 5,000 UNIT/0.5 ML VIAL SQ SCH ×3 (05:07→21:10)
[2021-11-26] MEDS: allopurinoL 100 MG TAB PO SCH (08:10)
[2021-11-26] MEDS: PANTOprazole 40 MG TAB PO SCH (08:11)
[2021-11-26] MEDS: GABAPENTIN 100 MG CAP PO SCH ×2 (08:11→14:12)
[2021-11-26] MEDS: MULTIVITAMIN TAB PO SCH (08:11)
[2021-11-26] MEDS: POTASSIUM CHLORIDE CRTAB 20 MEQ TABCR PO SCH ×2 (08:12→16:13)
[2021-11-26] MEDS: UREA (UREA-NA) 15 GM PACK PO SCH (08:12)
--- NOTE | 2021-11-26 09:37 | Nephrology Progress Note ---
Date of Service November 26, 2021 Assessment & Plan (1) Disorders of fluid, electrolyte, and acid-base balance: Plan: Patient with hyponatremia and CKD. Creatinine of 1.8 today. Sodium stable at 124. Patient is asymptomatic. -Fluid restriction of 1.2 L daily. -Okay to salt food. -protein shakes don't count to FR of 1.2L -trial urea bid 15 gm (2) CKD (chronic kidney disease) stage 3, GFR 30-59 ml/min: Plan: prerenal JAIR on CKD 3 has resolved; baselien creatinine past year 1.7-1.8. -daily bmp -gentle FR as above d/t recent JAIR Admission and Anticipated Discharge Date Admission Date: November 24, 2021 Subjective Seen for hyponatremia and CKD. He is eating better. Sodium stable at 124. Review of Systems Review of Systems: All other systems were reviewed and negative except as noted in HPI Physical Exam Physical Exam: General exam: Appears comfortable, no acute distress HEENT: Pupils are equal and reactive to light Neck: No JVD, neck is supple trachea is midline Respiratory system: Clear breath sounds bilaterally. Gastrointestinal: Abdomen is soft, non distended, non tender, bowel sounds are present CVS: Regular rate and rhythm. No murmurs, rubs or gallops Musculoskeletal: No joint or muscle tenderness Extremities: Non tender, no edema, peripheral pulses are present Neuro: Oriented, no tremors, no focal neurological deficits Skin: No rashes Results & Data ([facility]) Vital Signs (Past 12 Hours) Vital Signs Temp Pulse Pulse Resp BP BP Pulse Ox 11/26/21 07:31 36.4 C L 93 H 18 97/61 L 92 11/26/21 07:20 80 11/26/21 03:25 36.4 C L 84 16 94/54 L 97 11/25/21 23:05 36.4 C L 82 18 108/63 96 11/25/21 22:19 95 H O2 Del Method 11/26/21 07:31 Room Air 11/26/21 07:20 11/26/21 03:25 Room Air 11/25/21 23:05 Room Air 11/25/21 22:19 Laboratory Results 11/26/21 00:46
[2021-11-26 10:20] LABS: BUN Creatinine Ratio 26.9 (10-20); Calcium 9.8 mg/dl (8.5-10.1); Creatinine Clr Calc Pharmacy 31.9 ml/min; Est GFR (African American) 36.6 ml/min; Est GFR (Non-African American) 31.6 ml/min; Potassium 4.8 mmol/L (3.5-5.1)
[2021-11-26] MEDS: CHOLESTYRAMINE LIGHT 4 GM PKT PO SCH ×3 (10:57→21:10)
--- NOTE | 2021-11-26 15:40 | Progress Note ---
Date of Service November 26, 2021 Assessment & Plan Admission and Anticipated Discharge Date Admission Date: November 24, 2021 Subjective Pt with stable diarrhea -- emptying ostomy bax 3-5 x a day, half full when e mtpying Abd benign A?p: Crohn's s/p ileostomy Now with ileostomy diarrhea - Questran is typically not used post ileostomy, and may cause bile salt deficiency/malabsorption. Would consider switch to Lomotil/Immodium if he is having diarrhea. Results & Data ([facility]) Vital Signs (Past 12 Hours) Vital Signs Temp Pulse Pulse Resp BP Pulse Ox O2 Del Method 11/26/21 15:24 93 H 11/26/21 11:43 36.6 C 86 17 95/62 L 96 Room Air 11/26/21 07:31 36.4 C L 93 H 18 97/61 L 92 Room Air 11/26/21 07:20 80
--- NOTE | 2021-11-26 18:25 | Hospitalist Progress Note ---
Date of Service November 26, 2021 Assessment & Plan (1) Chronic hyponatremia: (2) Weakness: (3) Chronic kidney disease, stage IV (severe): (4) Crohn's disease: (5) Ileostomy present: (6) HTN (hypertension): Plan per admission service notes with addendum: Acute on chronic hyponatremia ? Secondary to diarrhea rule out C. difficile hx Crohn's disease status post surgery -- Stool studies: Negative for C. difficile GI consulted continue Cholestyramine TID, as needed Imodium -- Na improved from 122, today 129 Nephro on board Urea 15g BID Hypertension, BP on the lower side -- given IV NSS monitor CRI, creatinine at baseline -- crea 1.6 Chronic anemia, hemoglobin at baseline -- 12.6, now 10.9 Monitor Hyperglycemia rule out DM -- a1c 5.9 outpatient ff up Past tobacco abuse DVT prophylaxis with heparin subcu Full code Disposition anticipate d/c home when medically stable plan of care discussed with patient in detail and at length all questions answered he is understanding, agreeable, comfortable with the plan of care Admission and Anticipated Discharge Date Admission Date: November 24, 2021 Subjective Follow-up for hyponatremia, etc. Seen resting in bed, comfortable, not in distress Watching TV, in good spirits States he feels fine overall Weakness improving No nausea or abdominal pain Colostomy output more formed, no diarrhea today No other symptoms Review of Systems Review of Systems: all noted and negative except for above Physical Exam Physical Exam: General- oriented x 3, not in distress, speaks in sentences with no effort or accessory muscle use Eyes- anicteric Neck- no JVD Lungs- clear breath sounds bilaterally, no rales/wheezes Heart- normal rate, regular rhythm; no murmurs Abdomen- normal bowel sounds, nondistended, soft, nontender , Ostomy in place, with formed brown stools Extremities- no pretibial edema, no calf tenderness Neuro- alert, oriented x 3; no gross focal neurologic deficits Skin- warm & dry Results & Data Results & Data ([facility]) Vital Signs (Past 12 Hours) Vital Signs Temp Pulse Pulse Resp BP Pulse Ox O2 Del Method 11/26/21 16:03 36.5 C 86 18 99/66 L 95 Room Air 11/26/21 15:24 93 H 11/26/21 11:43 36.6 C 86 17 95/62 L 96 Room Air 10/08/22 07:31 36.4 C L 93 H 18 97/61 L 92 Room Air 11/26/21 07:20 80 all noted and reviewed including below
[2021-11-26 18:30] LABS: BUN Creatinine Ratio 28.6 (10-20); Calcium 9.5 mg/dl (8.5-10.1); Creatinine Clr Calc Pharmacy 34.5 ml/min; Est GFR (African American) 40.3 ml/min; Est GFR (Non-African American) 34.8 ml/min
[2021-11-26] MEDS: GABAPENTIN 400 MG CAP PO SCH (21:10)
[2021-11-27 02:44] LABS: BUN Creatinine Ratio 30.2 (10-20); Calcium 9.3 mg/dl (8.5-10.1); Creatinine Clr Calc Pharmacy 39.5 ml/min; Est GFR (African American) 47.5 ml/min; Potassium 5.4 mmol/L (3.5-5.1)
[2021-11-27] MEDS: HEPARIN SOD 5,000 UNIT/0.5 ML VIAL SQ SCH (06:18)
[2021-11-27] MEDS: GABAPENTIN 100 MG CAP PO SCH (09:12)
[2021-11-27] MEDS: allopurinoL 100 MG TAB PO SCH (09:12)
[2021-11-27] MEDS: MULTIVITAMIN TAB PO SCH (09:13)
[2021-11-27] MEDS: PANTOprazole 40 MG TAB PO SCH (09:13)
[2021-11-27] MEDS: UREA (UREA-NA) 15 GM PACK PO SCH (09:14)
--- NOTE | 2021-11-27 09:59 | Nephrology Progress Note ---
Date of Service November 27, 2021 Assessment & Plan (1) Disorders of fluid, electrolyte, and acid-base balance: Plan: Patient with hyponatremia and CKD. Creatinine of 1.6 today. Sodium stable at 130. Patient is asymptomatic. -Fluid restriction of 1.2 L daily. -Okay to salt food. -protein shakes don't count to FR of 1.2L Continue urea bid 15 gm From renal standpoint patient can be discharged on urea with renal follow-up on BMP in 1 week (2) CKD (chronic kidney disease) stage 3, GFR 30-59 ml/min: Plan: prerenal JAIR on CKD 3 has resolved; baselien creatinine past year 1.7-1.8. -daily bmp -gentle FR as above d/t recent JAIR Admission and Anticipated Discharge Date Admission Date: November 24, 2021 Subjective Seen for hyponatremia and JAIR. He feels better. No shortness of breath or confusion. Potassium slightly high today Review of Systems Review of Systems: All other systems were reviewed and negative except as noted in HPI Physical Exam Physical Exam: General exam: Appears comfortable, no acute distress HEENT: Pupils are equal and reactive to light Neck: No JVD, neck is supple trachea is midline Respiratory system: Clear breath sounds bilaterally. Gastrointestinal: Abdomen is soft, non distended, non tender, bowel sounds are present CVS: Regular rate and rhythm. No murmurs, rubs or gallops Musculoskeletal: No joint or muscle tenderness Extremities: Non tender, no edema, peripheral pulses are present Neuro: Oriented, no tremors, no focal neurological deficits Skin: No rashes Results & Data ([facility]) Vital Signs (Past 12 Hours) Vital Signs Temp Pulse Pulse Resp BP BP Pulse Ox 11/27/21 08:06 36.5 C 77 17 112/70 95 11/27/21 07:16 74 11/27/21 03:00 36.3 C L 88 18 94/58 L 98 11/26/21 22:05 89 11/26/21 23:15 36.6 C 87 16 91/50 L 94 O2 Del Method 11/27/21 08:06 Room Air 11/27/21 07:16 11/27/21 03:00 Room Air 11/26/21 22:05 11/26/21 23:15 Room Air
[2021-11-27 11:16] LABS: BUN Creatinine Ratio 21.2 (10-20); Calcium 9.7 mg/dl (8.5-10.1); Est GFR (African American) 32.6 ml/min; Est GFR (Non-African American) 28.1 ml/min; Potassium 4.8 mmol/L (3.5-5.1)
--- NOTE | 2021-11-27 11:26 | Hospitalist Progress Note ---
Date of Service November 27, 2021 Assessment & Plan (1) Chronic hyponatremia: (2) Weakness: (3) Chronic kidney disease, stage IV (severe): (4) Crohn's disease: (5) Ileostomy present: (6) HTN (hypertension): Plan per admission service notes with addendum: Acute on chronic hyponatremia likely Secondary to diarrhea , Poor oral intake hx Crohn's disease status post surgery -- Stool studies: Negative for C. difficile GI consulted continue Cholestyramine TID, as needed Imodium -- Na improved from 122, today 132 Nephro on board continue Urea 15g BID continue Fluid restriction 1.2L/day -- ff up with PCP this week, with repeat BMP Hypertension -- BP on the lower side monitor CRI, creatinine at baseline -- crea 1.6 Chronic anemia, hemoglobin at baseline -- 12.6, now 10.9 Monitor Hyperglycemia rule out DM -- a1c 5.9 outpatient ff up Past tobacco abuse DVT prophylaxis with heparin subcu Full code Disposition d/c home ff up with PCP in 1 week ff up with Nephro plan of care discussed with patient in detail and at length all questions answered he is understanding, agreeable, comfortable with the plan of care Admission and Anticipated Discharge Date Admission Date: November 24, 2021 Subjective ff up for hyponatremia, etc seen resting in bed, comfortable states he feels fine overall no weakness, dizziness no diarrhea no other symptoms states he is ready and would like to be discharged today Review of Systems Review of Systems: all noted and negative except for above Physical Exam Physical Exam: General- oriented x 3, not in distress, speaks in sentences with no effort or accessory muscle use Eyes- anicteric Neck- no JVD Lungs- clear breath sounds bilaterally Heart- normal rate, regular rhythm; no murmurs Abdomen- normal bowel sounds, nondistended, soft, nontender Colostomy bag- formed stools Extremities- no pretibial edema, no calf tenderness Neuro- alert, oriented x 3; no gross focal neurologic deficits Skin- warm & dry Results & Data Results & Data ([facility]) Vital Signs (Past 12 Hours) Vital Signs Temp Pulse Pulse Resp BP BP Pulse Ox 11/27/21 08:06 36.5 C 77 17 112/70 95 11/27/21 07:16 74 11/27/21 03:00 36.3 C L 88 18 94/58 L 98 O2 Del Method 11/27/21 08:06 Room Air 11/27/21 07:16 11/27/21 03:00 Room Air all noted and reviewed including below
[2021-11-27] MEDS: CHOLESTYRAMINE LIGHT 4 GM PKT PO SCH (11:33)
--- NOTE | 2021-11-28 16:04 | Discharge Summary ---
Discharge Summary Date of Service November 28, 2021 Delayed entry Date of service November 27, 2021 Notes For Next Care Provider Repeat basic metabolic profile on follow-up with PCP 1 week postdischarge Medication Changes From Visit Urea 15 g twice daily Admission HPI Per Admitting Provider This is a 76-year-old male who has a significant past medical history of Crohn's disease status post ileostomy since early , chronic hyponatremia, hyperparathyroidism, HTN, HLD, nonproteinuric CKD stage IV, GERD who presents to ED at the referral of agility instructor due to worsening low sodium. Pt follows closely with Dr. Polanco of nephrology. He was seen in clinic today. He complains of being general weak and easily fatigued the past 3 weeks. He denies any f/c/s, lightheaded, syncope, fall, chest pain, sob, cough, n/v, abd pain, dysuria, increased urg/freq with urination. He complains of feeling off balanced from time to time. He has noticed a slight increase in output from his ostomy and that stool is much more liquid the past 5 days as opposed to any solid matter. He still is trying to remain active despite lack of energy. He rode his sap manager today and stated, "that took it out of me." In ED he remained hemodynamically stable. Lab work notable for sodium 122, chloride 83, BUN 30, creatinine 2.12, serum osmolality 260 and H&H 12.6 and 34.8. He did receive 500 mL IV fluid in ED. Admission Exam Per Admitting Provider Constitutional: WD/WN, vitals as above, NAD, sitting up in bed, pleasant, conversing easily Head: Normocephalic, Atraumatic Eyes: PERRL, conjunctivae normal, anicteric sclerae ENMT: external ear and nose normal, oropharynx normal Neck: trachea midline, no thyromegaly normal visual inspection Respiratory: normal respiratory effort, lungs clear to auscultation, no wheeze, rales, rhonchi. Normal insp/exp effort, no accessory muscle use Cardiovascular: RRR, no murmur, no edema Vessels: no JVD or carotid bruit Chest: normal inspection of chest Abdomen: normal bowel sounds, soft, nontender, no hepatosplenomegaly +RLQ Ileostomy with liquid stool output Musculoskeletal: no cyanosis or clubbing, extremities motor strength 5/5 Skin: no rashes, warm and dry normal turgor Neurologic: PERRL, EOMI, accommodation nl, no face palsy, no dysarthria CN's II-XI intact bilaterally and moves all extremities Psychiatric: A+Ox3, euthymic affect Lymphatic: no cervical or axillary lymphadenopathy : deferred Principal Dx & Hospital Course #1 = Principal Diagnosis (1) Chronic hyponatremia: (2) Weakness: (3) Chronic kidney disease, stage IV (severe): (4) Crohn's disease: (5) Ileostomy present: (6) HTN (hypertension): Plan per admission service notes with addendum: Acute on chronic hyponatremia likely Secondary to diarrhea , Poor oral intake hx Crohn's disease status post surgery -- Stool studies: Negative for C. difficile GI consulted continue Cholestyramine TID, as needed Imodium -- Na improved from 122, today 132 Nephro on board continue Urea 15g BID continue Fluid restriction 1.2L/day -- ff up with PCP this week, with repeat BMP Hypertension -- BP on the lower side monitor CRI, creatinine at baseline -- crea 1.6 Chronic anemia, hemoglobin at baseline -- 12.6, now 10.9 Monitor Hyperglycemia rule out DM -- a1c 5.9 outpatient ff up Past tobacco abuse DVT prophylaxis with heparin subcu Full code Disposition d/c home ff up with PCP in 1 week ff up with Nephro plan of care discussed with patient in detail and at length all questions answered he is understanding, agreeable, comfortable with the plan of care Discharge Exam General- oriented x 3, not in distress, speaks in sentences with no effort or accessory muscle use Eyes- anicteric Neck- no JVD Lungs- clear breath sounds bilaterally Heart- normal rate, regular rhythm; no murmurs Abdomen- normal bowel sounds, nondistended, soft, nontender Colostomy bag- formed stools Extremities- no pretibial edema, no calf tenderness Neuro- alert, oriented x 3; no gross focal neurologic deficits Skin- warm & dry Updated Medication List Medication Instructions Recorded Confirmed Type allopurinol 100 mg tablet 200 mg PO DAILY 07/08/20 11/24/21 History cholestyramine (with sugar) 4 gram 1 ea PO TID 07/08/20 11/24/21 History powder for susp in a packet omeprazole 20 mg capsule,delayed 20 mg PO QAM 07/08/20 11/24/21 History release sodium bicarbonate 650 mg tablet 1,300 mg PO BID 10/02/21 11/24/21 History tramadol 50 mg tablet 50 mg PO Q6H PRN Pain 10/02/21 11/24/21 History gabapentin 800 mg tablet 800 mg PO BID #30 tabs 10/03/21 11/24/21 Rx cholecalciferol (vitamin D3) 25 25 mcg PO BID 11/24/21 11/24/21 History mcg (1,000 unit) tablet (Vitamin D3) gabapentin 800 mg tablet 1,600 mg PO HS 11/24/21 11/24/21 History loperamide 2 mg capsule 2 mg PO QID PRN Diarrhea 11/24/21 11/24/21 History multivitamin 1 tab PO DAILY 11/24/21 11/24/21 History urea 15 gram oral powder packet 15 g PO BID 30 days #60 ea 11/27/21 Rx (Ure-Na) Hospital Stay Data Consultations 11/24/21 18:34 ED Decision to Admit Stat 11/24/21 23:09 Consult Nephrology Routine 11/25/21 10:47 Consult Gastroenterology Routine Pending Results Patient Have Any Pending Studies at Discharge: Yes Discharge Instructions Given to Patient (Per Discharging Provider) PLEASE REFER TO YOUR NEW MEDICATION LIST AND FOLLOW INSTRUCTIONS CAREFULLY. YOUR NEW MEDICATIONS INCLUDE: Urea-medication to increase sodium Drink boost- 1 bottle 3 times a day. You can use salt for your food. PLEASE CALL YOUR PRIMARY CARE PHYSICIAN OR RETURN TO THE ER IF WITH WORSENING OF SYMPTOMS, INCLUDING Weakness, dizziness, confusion, Diarrhea from colostomy site. FOLLOW UP WITH PRIMARY CARE PHYSICIAN in 1 week. Follow-up with agility instructor in 1 week. Repeat blood work on your follow-up visit with your primary care physician. The clinic will be calling you soon for the appointment schedule. Total Time Total Time Spent Total Time Spent (In Minutes): >30 mnutes
== END 2021-11-27 13:35 | disposition home or self-care (01) | DRG 641 ==
LOC: ED 17:44 → 2N 22:39
DX: Z87.891 Personal history of nicotine dependence; Z88.5 Allergy status to narcotic agent; K21.9 Gastro-esophageal reflux disease without esophagitis; E87.1 Hypo-osmolality and hyponatremia; I12.9 Hypertensive chronic kidney disease with stage 1 through stage 4 chronic kidney disease, or unspecified chronic kidney disease; R73.9 Hyperglycemia, unspecified; K50.90 Crohn's disease, unspecified, without complications; N18.4 Chronic kidney disease, stage 4 (severe); N17.9 Acute kidney failure, unspecified; Z93.2 Ileostomy status

== ENCOUNTER 2022-07-12 11:24 | Inpatient (IN) ==
[2022-07-12] MEDS ORDERED: SODIUM CHLORIDE 0.9% 1000ML 1,000 ML IV ONE (11:43)
--- NOTE | 2022-07-12 11:43 | ED Triage Note ---
Date of Service July 12, 2022 History of Present Illness This patient was briefly evaluated while in triage. An abbreviated physical exam was performed. This patient is a 76-year-old Male who presents to the ED for evaluation of fatigue. He was referred to the emergency department by his PCP for low sodium of 117. Physical Exam CONSTITUTIONAL: Healthy and well nourished. HEENT: No scleral icterus or conjunctival injection/pallor. NECK: Full active range of motion without discomfort. LYMPHATICS: No cervical chain adenopathy. RESPIRATORY: Clear to auscultation bilaterally with no wheezing, crackles, rhonchi or stridor. CARDIOVASCULAR: Regular rate and rhythm with no murmurs, rubs or gallops. INTEGUMENTARY: No rash or other significant dermatologic conditions noted. HEMATOLOGIC: No ecchymosis or petechiae. PSYCHIATRIC: Positive affect. NEUROLOGIC: No focal neurologic deficits noted. Initial orders for labs and / or imaging were placed and patient was placed in the waiting area until a bed is available. Please see further documentation for the full ED course.
[2022-07-12] MEDS ORDERED: SODIUM CHLORIDE 0.9% 500 ML IV ONE (11:56)
--- NOTE | 2022-07-12 12:00 | Emergency Department Note ---
Impression & Plan Acute hyponatremia, Acute renal failure superimposed on stage 4 chronic kidney disease ED Provider Note NAME: LUCA HARTMAN AGE: 76 SEX: M : 1945 ARRIVES VIA: Walk-In INFORMANT: Patient ED PROVIDER(S): Maurizio Zhao DO CHIEF COMPLAINT: weakness HPI: Patient is a 76-year-old male who presents to the ER for weakness. Does have a history of chronic hyponatremia. Follows with nephrology. He notes he has been weaker than usual recently. Denies any headache or change in vision. No chest pain but does have shortness of breath with exertion as he feels very tired. No belly pain, nausea, vomiting, or diarrhea. He notes fair amount of his medications have been adjusted recently. No dysuria, urgency, or frequency. No other exacerbating or remitting factors. PAST MEDICAL HISTORY:See Below PAST SURGICAL HISTORY:See Below FAMILY HISTORY:See Below SOCIAL HISTORY:See Below HOME MEDICATIONS:See Below ALLERGIES:See Below VITALS:See Below PHYSICAL EXAMINATION: GENERAL: Sitting up in bed, alert, well appearing, well nourished, no distress, non-toxic EYE EXAM: normal conjunctiva. PERRL and EOM's intact. OROPHARYNX: no exudate, no erythema, lips, buccal mucosa, and tongue normal and mucous membranes are moist NECK: supple, no nuchal rigidity, no adenopathy, non-tender LUNGS: Clear to auscultation. Normal chest wall mechanics HEART: no murmurs, S1 normal and S2 normal ABDOMEN: abdomen soft, non-tender, normo-active bowel sounds, no masses, no rebound or guarding. BACK: Back is symmetrical on inspection and there is no deformity, no midline tenderness, no CVA tenderness. SKIN: no rashes and no bruising UPPER EXTREMITIES: upper extremities are grossly normal. LOWER EXTREMITIES: No pitting edema. NEURO EXAM: Normal sensorium, cranial nerves II-XII intact, normal speech, no weakness of arms, no weakness of legs. No drift. Finger to nose intact. Gross sensation intact. MEDICAL DECISION MAKING: Patient is a 76-year-old male who presents ER for above-stated complaint. He does have a past medical history of hyponatremia, CKD, ileostomy and Crohn's disease. He notes he feels weaker and more rundown. He gets more short of breath when he is up and doing something now. He followed up with outpatient nephrology. He was referred in following blood work which showed hyponatremia. IV was established blood work was obtained. Labs show no significant leukocytosis. Mild anemia at 12. INR unremarkable. BMP with hyponatremia 116. Creatinine at 2.5. Creatinine has been trending up for the past several months. Bilirubin LFTs were unremarkable. Magnesium was low. Troponin negative. TSH unremarkable. COVID-negative. Urine still has not been obtained. Patient was given IV fluids. Heart rate trended down and blood pressure trended up from the 90s. Case was discussed with the hospitalist Alice from [facility] and patient will be admitted for further work-up. Also discussed with Dr. Song from nephrology. He recommended IV fluids at this time and no additional treatment admission and trending the sodiums. Triage Nursing notes reviewed. Limited review of prior medical records performed Vital Signs: reviewed and remarkable for hypotension and tachy Differential diagnosis: Infection, dehydration, metabolic abnormality, hypo/hyperglycemia, electrolyte disturbance, anemia, hypoxia, cardiac sources, intracerebral event, toxicologic, neurologic, as well as other pathologies. ER treatment provided: See below Diagnostics interpreted by me include EKG and cardiac monitoring as listed below: -Cardiac Monitoring: An order was placed for continuous cardiac monitoring. The monitor shows a rate of 80 with sinus rhythm. -ECG: Sinus rhythm rate of 97 Left axis QTc 444 -Laboratory studies:Interpreted by me as stated above in MDM and shown below. Imaging studies: Xrays: As interpreted by me: Portable AP upright 1 view of the chest shows no pneumonia CTs show: none Consultation(s): As described in [facility] Procedures:none Critical Care: None Past Med/Surg History Medical History Chronic hyponatremia CKD (chronic kidney disease) stage 3, GFR 30-59 ml/min Crohn's disease No active Crohn's since proctocolectomy and not on medication since 2009. Last verified on December 2019 GI scope GERD (gastroesophageal reflux disease) HTN (hypertension) Ileostomy present Permanent; 2007 Metabolic acidosis Uric acid nephrolithiasis One-time stone episode 2011 Weakness Surgical History Hx of appendectomy Hx of cataract surgery Hx of cholecystectomy Hx of inguinal hernia surgery Status post proctocolectomy 2007 with permanent ileostomy Family History Sister Cancer Breast cancer Grandfather No problems noted. Father Ulcerative colitis Social History Smoking Status: Never smoker Second Hand Exposure: No; Do You Dip or Chew Tobacco: No; Hx Alcohol Use: Yes Alcohol type: beer Hx Substance Use: No Preferred Language: Bulgarian Communication Ability: Effective Edger Liner Required: No Beliefs That Will Affect Care: None marital status: Current Living Situation: Spouse Current Living Situation Comment: Lives with . Feels Safe at Home: Yes Assistive Devices: None Allergies Allergies Allergy/AdvReac Type Severity Reaction Status Date / Time oxycodone AdvReac Intermediate MENTAL Verified 11/24/21 19:31 STATUS CHANGES, HALLUCINATIONS Home Meds Home Medications Medication Instructions Recorded Confirmed allopurinol 100 mg tablet 200 mg PO DAILY 07/08/20 07/12/22 cholestyramine (with sugar) 4 gram 1 ea PO TID 07/08/20 07/12/22 powder for susp in a packet tramadol 50 mg tablet 50 mg PO Q6H PRN Pain 10/02/21 07/12/22 cholecalciferol (vitamin D3) 25 25 mcg PO BID 11/24/21 07/12/22 mcg (1,000 unit) tablet (Vitamin D3) loperamide 2 mg capsule 2 mg PO QID PRN Diarrhea 11/24/21 07/12/22 multivitamin 1 tab PO DAILY 11/24/21 07/12/22 gabapentin 300 mg capsule 300 mg PO TID 07/12/22 07/12/22 triamcinolone acetonide 0.1 % 0.1 applic topical 07/12/22 topical cream Results & Data (ED) Vital Signs Vital Signs - 24 hr 07/12/22 11:39 07/12/22 12:52 07/12/22 12:59 Temperature 36.6 C Temperature Source Temporal Artery Scan Pulse Rate 113 H 90 Pulse Rate from SpO2 Sensor Respiratory Rate 16 Respiratory Effort / Characteristics Non-Labored Spontaneous Respiratory Depth Normal Blood Pressure 97/62 L Blood Pressure Mean 73 Blood Pressure Position Sitting Pulse Oximetry 95 96 Oxygen Delivery Method Room Air Room Air Sepsis Recent Fever Within 48 Hours No Sepsis New/Unexplained Change in Mental Status No Sepsis Action Taken by Nursing Physician Notified 07/12/22 12:51 07/12/22 13:00 07/12/22 13:30 Temperature Temperature Source Pulse Rate 87 84 87 Pulse Rate from SpO2 Sensor 88 85 87 Respiratory Rate 15 16 13 Respiratory Effort / Characteristics Respiratory Depth Blood Pressure Blood Pressure Mean Blood Pressure Position Pulse Oximetry 97 98 98 Oxygen Delivery Method Sepsis Recent Fever Within 48 Hours Sepsis New/Unexplained Change in Mental Status Sepsis Action Taken by Nursing 07/12/22 14:07 07/12/22 14:16 07/12/22 14:16 Temperature Temperature Source Pulse Rate 100 H 91 H Pulse Rate from SpO2 Sensor 99 H 91 H Respiratory Rate 22 16 Respiratory Effort / Characteristics Respiratory Depth Blood Pressure 109/70 Blood Pressure Mean 84 Blood Pressure Position Pulse Oximetry 99 97 Oxygen Delivery Method Sepsis Recent Fever Within 48 Hours Sepsis New/Unexplained Change in Mental Status Sepsis Action Taken by Nursing 07/12/22 14:17 07/12/22 14:17 07/12/22 14:18 Temperature Temperature Source Pulse Rate 92 H Pulse Rate from SpO2 Sensor 93 H Respiratory Rate 13 Respiratory Effort / Characteristics Respiratory Depth Blood Pressure 113/70 100/74 Blood Pressure Mean 83 85 Blood Pressure Position Pulse Oximetry 97 Oxygen Delivery Method Sepsis Recent Fever Within 48 Hours Sepsis New/Unexplained Change in Mental Status Sepsis Action Taken by Nursing 07/12/22 14:18 07/12/22 14:19 07/12/22 14:19 Temperature Temperature Source Pulse Rate 93 H 93 H Pulse Rate from SpO2 Sensor 93 H 94 H Respiratory Rate 20 17 Respiratory Effort / Characteristics Respiratory Depth Blood Pressure 118/74 Blood Pressure Mean 87 Blood Pressure Position Pulse Oximetry 97 97 Oxygen Delivery Method Sepsis Recent Fever Within 48 Hours Sepsis New/Unexplained Change in Mental Status Sepsis Action Taken by Nursing 07/12/22 14:20 07/12/22 14:20 07/12/22 14:25 Temperature Temperature Source Pulse Rate 95 H 97 H Pulse Rate from SpO2 Sensor 94 H 97 H Respiratory Rate 19 15 Respiratory Effort / Characteristics Respiratory Depth Blood Pressure 101/70 Blood Pressure Mean 79 Blood Pressure Position Pulse Oximetry 99 98 Oxygen Delivery Method Sepsis Recent Fever Within 48 Hours Sepsis New/Unexplained Change in Mental Status Sepsis Action Taken by Nursing 07/12/22 14:25 Temperature Temperature Source Pulse Rate Pulse Rate from SpO2 Sensor Respiratory Rate Respiratory Effort / Characteristics Respiratory Depth Blood Pressure 105/77 Blood Pressure Mean 87 Blood Pressure Position Pulse Oximetry Oxygen Delivery Method Sepsis Recent Fever Within 48 Hours Sepsis New/Unexplained Change in Mental Status Sepsis Action Taken by Nursing Laboratory Data 07/12/22 12:25 07/12/22 12:25 Lab Results 07/12/22 07/12/22 07/12/22 Range/Units 12:25 12:25 12:25 WBC 5.27 (4.8-10.8) K/ul RBC 4.47 L (4.70-6.10) M/uL Hgb 12.0 L (14.0-18.0) g/dl Hct 34.4 L (42.0-52.0) % MCV 77.0 L (80.0-100.0) fL MCH 26.8 (25.0-34.0) pg MCHC 34.9 (32.0-36.0) g/dL RDW Std Deviation 40.8 (36.4-46.3) fL RDW Coeff of Doyle 14.8 H (11.5-14.5) % Plt Count 202 (130-400) K/uL MPV 10.8 (9.4-12.4) fL Immature Gran % (Auto) 0.4 % Neut % (Auto) 55.9 % Lymph % (Auto) 26.9 % [place] % (Auto) 12.9 % Eos % (Auto) 3.0 % Baso % (Auto) 0.9 % Neut # (Auto) 2.94 (1.40-6.50) K/uL Lymph # (Auto) 1.42 (1.2-3.4) K/uL [place] # (Auto) 0.68 H (0.11-0.59) K/uL Eos # (Auto) 0.16 (0-0.50) K/uL Baso # (Auto) 0.05 (0-0.2) K/uL Immature Gran # (Auto) 0.02 (0.01-0.20) K/uL PT 10.9 (9.0-12.0) Seconds INR 1.0 (0.9-1.1) Sodium 116 L* (136-145) mmol/L Potassium 3.6 (3.5-5.1) mmol/L Chloride 78 L (98-107) mmol/L Carbon Dioxide 27 (21-32) mmol/L Anion Gap 11 (3-11) BUN 66 H (6-23) mg/dl Creatinine 2.55 H (0.6-1.4) mg/dl Est Cr Clr Drug Dosing 23.1 ml/min Est GFR ( Amer) 26.8 ml/min Est GFR (Non-Af Amer) 23.1 ml/min BUN/Creatinine Ratio 25.9 H (10-20) Glucose 99 (70-99(Fasting)) mg/dl Calcium 9.5 (8.6-10.3) mg/dl Magnesium 2.0 (1.7-2.4) mg/dl Total Bilirubin 0.7 (0.2-1.0) mg/dl AST 41 H (13-39) U/L ALT 29 (7-52) U/L Alkaline Phosphatase 146 H (34-104) U/L Troponin I High Sens 9.8 (0-20) pg/ml Total Protein 7.2 (6.0-8.3) gm/dl Albumin 4.2 (3.4-5.0) gm/dl Globulin 3.0 (2.5-4.0) gm/dl Albumin/Globulin Ratio 1.4 (0.9-2) TSH (0.300-4.500) uIu/ml SARS-CoV-2, RNA, NAAT (NEGATIVE) 07/12/22 07/12/22 Range/Units 12:25 12:30 WBC (4.8-10.8) K/ul RBC (4.70-6.10) M/uL Hgb (14.0-18.0) g/dl Hct (42.0-52.0) % MCV (80.0-100.0) fL MCH (25.0-34.0) pg MCHC (32.0-36.0) g/dL RDW Std Deviation (36.4-46.3) fL RDW Coeff of Doyle (11.5-14.5) % Plt Count (130-400) K/uL MPV (9.4-12.4) fL Immature Gran % (Auto) % Neut % (Auto) % Lymph % (Auto) % [place] % (Auto) % Eos % (Auto) % Baso % (Auto) % Neut # (Auto) (1.40-6.50) K/uL Lymph # (Auto) (1.2-3.4) K/uL [place] # (Auto) (0.11-0.59) K/uL Eos # (Auto) (0-0.50) K/uL Baso # (Auto) (0-0.2) K/uL Immature Gran # (Auto) (0.01-0.20) K/uL PT (9.0-12.0) Seconds INR (0.9-1.1) Sodium (136-145) mmol/L Potassium (3.5-5.1) mmol/L Chloride (98-107) mmol/L Carbon Dioxide (21-32) mmol/L Anion Gap (3-11) BUN (6-23) mg/dl Creatinine (0.6-1.4) mg/dl Est Cr Clr Drug Dosing ml/min Est GFR ( Amer) ml/min Est GFR (Non-Af Amer) ml/min BUN/Creatinine Ratio (10-20) Glucose (70-99(Fasting)) mg/dl Calcium (8.6-10.3) mg/dl Magnesium (1.7-2.4) mg/dl Total Bilirubin (0.2-1.0) mg/dl AST (13-39) U/L ALT (7-52) U/L Alkaline Phosphatase (34-104) U/L Troponin I High Sens (0-20) pg/ml Total Protein (6.0-8.3) gm/dl Albumin (3.4-5.0) gm/dl Globulin (2.5-4.0) gm/dl Albumin/Globulin Ratio (0.9-2) TSH 2.390 (0.300-4.500) uIu/ml SARS-CoV-2, RNA, NAAT NEGATIVE (NEGATIVE) Administered Medications Discontinued Medications Sodium Chloride (Nss 1000ml) 1,000 mls @ 999 mls/hr IV .Q1H1M ONE Stop: 07/12/22 12:43 Last Infusion: 07/12/22 13:38 Dose: 0 mls/hr Documented By: Admin: 07/12/22 12:34 Dose: 999 mls/hr Documented By: CRYS Sodium Chloride (Nss) 500 mls @ 999 mls/hr IV .Q31M ONE Stop: 07/12/22 12:26 Last Infusion: 07/12/22 13:38 Dose: 0 mls/hr Documented By: Admin: 07/12/22 12:34 Dose: 999 mls/hr Documented By: CRYS Imaging Data Radiologist's Impression: Chest X-Ray 07/12/22 11:43 XR chest 1V portable CLINICAL HISTORY: weakness TECHNIQUE: Single frontal radiograph of the chest was obtained. Comparison: Comparison is made to chest radiograph 10/02/2021 FINDINGS: No lines and tubes are seen. The cardiomediastinal silhouette is normal. The lungs are clear. No evidence of pleural effusion or pneumothorax. IMPRESSION: No acute chest disease. ACT 112: Negative or not required by law. Electronically signed by: Bernardo Gamez M.D. 07/12/2022 12:24 PM Discharge Plan Visit Data Chief Complaint: Abnormal Labs/Diagnostic Testing Stated Complaint: ABNORMAL LABS, REF BY DR MELO Provider: Maurizio Zhao Discharge Problem: Acute hyponatremia, Acute renal failure superimposed on stage 4 chronic kidney disease Forms Stand Alone Forms: My [facility] [employer] Prescriptions Prescriptions: No Action tramadol 50 mg tablet 50 mg PO Q6H PRN (Reason: Pain) triamcinolone acetonide 0.1 % cream 0.1 applic TOPICAL gabapentin 300 mg capsule 300 mg PO TID allopurinol 100 mg tablet 200 mg PO DAILY cholestyramine (with sugar) 4 gram powder in packet 1 ea PO TID multivitamin Tablet 1 tab PO DAILY loperamide 2 mg Capsule 2 mg PO QID PRN (Reason: Diarrhea) cholecalciferol (vitamin D3) [Vitamin D3] 25 mcg (1,000 unit) Tablet 25 mcg PO BID Referrals Referrals: Neil Whitlock DO [Primary Care Provider] -
--- NOTE | 2022-07-12 12:26 | XRay Report ---
XR chest 1V portable CLINICAL HISTORY: weakness TECHNIQUE: Single frontal radiograph of the chest was obtained. Comparison: Comparison is made to chest radiograph 10/02/2021 FINDINGS: No lines and tubes are seen. The cardiomediastinal silhouette is normal. The lungs are clear. No evid ence of pleural effusion or pneumothorax. IMPRESSION: No acute chest disease. ACT 112: Negative or not required by law. Electronically signed by: Bernardo Gamez M.D. 07/12/2022 12:24 PM
[2022-07-12 13:12] LABS: Basophils # (auto) 0.05 K/uL (0-0.2); Basophils % (auto) 0.9 %; Eosinophils # (auto) 0.16 K/uL (0-0.50); Hematocrit (blood only) 34.4 % (42.0-52.0); Immature Granulocytes # (auto) 0.02 K/uL (0.01-0.20); Immature Granulocytes % (auto) 0.4 %; Lymphocytes # (auto) 1.42 K/uL (1.2-3.4); Lymphocytes % (auto) 26.9 %; Mean Corpuscular Hemoglobin 26.8 pg (25.0-34.0); Mean Corpuscular Hgb Conc 34.9 g/dL (32.0-36.0); Mean Platelet Volume 10.8 fL (9.4-12.4); Monocytes # (auto) 0.68 K/uL (0.11-0.59); Monocytes % (auto) 12.9 %; Neutrophils # (auto) 2.94 K/uL (1.40-6.50); Neutrophils % (auto) 55.9 %; Platelet Count 202 K/uL (130-400); RDW Coefficient of Variation 14.8 % (11.5-14.5); RDW Standard Deviation 40.8 fL (36.4-46.3); Red Blood Count 4.47 M/uL (4.70-6.10); White Blood Count 5.27 K/ul (4.8-10.8)
[2022-07-12 13:36] LABS: Albumin Globulin Ratio 1.4 (0.9-2); Albumin Level 4.2 gm/dl (3.4-5.0); BUN Creatinine Ratio 25.9 (10-20); Bilirubin,Total 0.7 mg/dl (0.2-1.0); Calcium 9.5 mg/dl (8.6-10.3); Creatinine Clr Calc Pharmacy 23.1 ml/min; Est GFR (African American) 26.8 ml/min; Est GFR (Non-African American) 23.1 ml/min; Potassium 3.6 mmol/L (3.5-5.1); Total Protein 7.2 gm/dl (6.0-8.3); Troponin I High Sensitivity 9.8 pg/ml (0-20)
[2022-07-12 13:47] LABS: Prothrombin Time 10.9 Seconds (9.0-12.0)
--- NOTE | 2022-07-12 14:18 | History & Physical Report ---
Date of Service July 12, 2022 Assessment & Plan (1) Acute hyponatremia: (2) Chronic hyponatremia: Plan: Acute on chronic hyponatremia Patient is 76-year-old male with PMH chronic hyponatremia with recent discontinuation of sodium bicarbonate and urea. Outpatient Na 137 on 07/03/2022, 136 on 06/05/2022. Today outpatient Na: 117 Complains of generalized weakness and fatigue Today in ER P: 113 down to 94, BP 97/62 up to 105/77 Na: 116 In ER given 1500 mL NSS Repeat BMP for assessment of sodium Urine osmolality, serum serum osmolality, urine sodium, urine creatinine pending 1500ml fluid restriction for now pending further neprhology recommendations Nephrology consult Follow BMP (3) Chronic kidney disease, stage IV (severe): Plan: Cr: 2.5. Baseline Cr: 2.3-2.7 per outpatient chart review Monitor renal functions, avoid nephrotoxic agents when possible (4) HTN (hypertension): Plan: BPs have been running on the low side outpatient. Atenolol was tapered and discontinued Monitor BP (5) Crohn's disease: Plan: S/P proctocolectomy and ileostomy Denies any increased stool output or increased liquid stool Continue Questran, Imodium as needed (6) Nephrolithiasis: Plan: On allopurinol DVT Prophylaxis Heparin SQ Full Code as per discussion with pt Follows with Dr Whitlock for routine care Pt was seen and care coordinated with Dr Cope. See addendum I spent a total of 82 minutes reviewing notes, outpatient records, labs, medication, coordinating, documenting and providing care for this patient excluding time spent in the performance of separately billed services. History of Present Illness Chief Complaint: Abnormal labs - hyponatremia Primary Care Provider: Neil Whitlock DO Patient is 76-year-old male with PMH chronic hyponatremia, HTN, nephrolithiasis, Crohn's s/p proctocolectomy and ileostomy, CKD IV presented to ER for abnormal outpatient labs. Patient with history of chronic hyponatremia. Nephrology stopped Sodium bicarbonate in May 2022 and stopped urea on 07/03/2022. His sodiums have been 136-137 in May and June. Had repeat labs today secondary to recent medication changes and had outpatient lab with sodium of 117 and was referred to ER for further evaluation and treatment. Patient states for the last couple weeks he has been having generalized weakness and fatigue. States he tires with minimal exertion. He states in the mornings when getting out of bed he has some lightheadedness. Denies any syncope. Patient is on fluid restriction of 48 ounces water daily. He states he has been following this and he sometimes has 4 ounces of lemonade or tea a couple times a week as well. He states he is waiting on his dentures and partial so for the last 9 months has been eating soft and liquid foods and has lost 25 pounds. Denies other OTC medication use. Denies ETOH use. Denies any increased output of stool in colostomy bag. Denies fever/chills, diaphoresis, nausea, vomiting, hematemesis, melena, CASH, vision changes, neck pain, CP, SOB, palpitations, cough, sore throat, rhinorrhea, abdominal pain, paresthesias, extremity edema, rashes, urinary symptoms. Allergies Allergy/AdvReac Type Severity Reaction Status Date / Time oxycodone AdvReac Intermediate MENTAL Verified 11/24/21 19:31 STATUS CHANGES, HALLUCINATIONS Home Medications Medication Instructions Recorded Confirmed Type allopurinol 100 mg tablet 200 mg PO DAILY 07/08/20 07/12/22 History cholestyramine (with sugar) 4 gram 1 ea PO TID 07/08/20 07/12/22 History powder for susp in a packet tramadol 50 mg tablet 50 mg PO Q6H PRN Pain 10/02/21 07/12/22 History loperamide 2 mg capsule 2 mg PO QID PRN Diarrhea 11/24/21 07/12/22 History multivitamin 1 tab PO DAILY 11/24/21 07/12/22 History cholecalciferol (vitamin D3) 50 2,000 unit PO DAILY 07/12/22 07/12/22 History mcg (2,000 unit) capsule (Vitamin D3) gabapentin 300 mg capsule 300 mg PO TID 07/12/22 07/12/22 History triamcinolone acetonide 0.1 % 0.1 applic topical BID 07/12/22 07/12/22 History topical cream Past Med/Surg History Medical History (Updated 07/12/22 @ 15:20 by Mae Patel PA-C) Crohn's disease No active Crohn's since proctocolectomy and not on medication since 2009. Last verified on December 2019 GI scope GERD (gastroesophageal reflux disease) HTN (hypertension) Ileostomy present Permanent; 2007 Metabolic acidosis Uric acid nephrolithiasis One-time stone episode 2011 Weakness Surgical History Hx of appendectomy Hx of cataract surgery Hx of cholecystectomy Hx of inguinal hernia surgery Status post proctocolectomy 2007 with permanent ileostomy Family History Sister Cancer Breast cancer Grandfather No problems noted. 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 Other Information That Helps Us Care for You: No Feels Safe at Home: Yes Safety Concerns: Feels Safe At This Time Assistive Devices: Denture - Upper and Glasses Review of Systems Review of Systems: All systems reviewed & are unremarkable except as noted in HPI & below Physical Exam Physical Exam: General: no distress, WDWN Head: normocephalic, atraumatic Eyes: conjunctiva non-injected, anicteric ENT: normal inspection external ears, nose, mucous membranes slightly dry Neck: supple, trachea midline Lungs: clear, no respiratory distress, no wheezing/rhonchi/rales CV: RRR, no murmur, no pretibial edema Abd: normal BS, soft, non-tender Ext: no cyanosis, no calf tenderness Neuro: A&O x 3, no focal deficits noted, normal affect Skin: warm, dry Results & Data Results & Data Vital Signs (Past 12 Hours) Vital Signs Temp Pulse Resp BP Pulse Ox O2 Del Method 07/12/22 13:30 87 13 98 07/12/22 13:00 84 16 98 07/12/22 12:51 87 15 97 07/12/22 12:59 96 Room Air 07/12/22 12:52 90 07/12/22 11:39 36.6 C 113 H 16 97/62 L 95 Room Air Laboratory Results Short CBC 07/12/22 Range/Units 12:25 WBC 5.27 (4.8-10.8) K/ul Hgb 12.0 L (14.0-18.0) g/dl Hct 34.4 L (42.0-52.0) % Plt Count 202 (130-400) K/uL BMP 07/12/22 12:25 Sodium 116 L* Potassium 3.6 Chloride 78 L Carbon Dioxide 27 BUN 66 H Creatinine 2.55 H Glucose 99 Calcium 9.5 Liver Function 07/12/22 Range/Units 12:25 Total Bilirubin 0.7 (0.2-1.0) mg/dl AST 41 H (13-39) U/L ALT 29 (7-52) U/L Alkaline Phosphatase 146 H (34-104) U/L Albumin 4.2 (3.4-5.0) gm/dl Urine 07/12/22 Range/Units 14:08 Urine Color Yellow Urine Appearance Clear (Clear) Urine pH 6.5 (4.5-7.5) Ur Specific [place] 1.011 (1.000-1.030) Urine Protein Negative (Negative) Urine Glucose (UA) Negative (Negative) Diagnostic Findings Chest X-Ray 07/12/22 11:43 XR chest 1V portable CLINICAL HISTORY: weakness TECHNIQUE: Single frontal radiograph of the chest was obtained. Comparison: Comparison is made to chest radiograph 10/02/2021 FINDINGS: No lines and tubes are seen. The cardiomediastinal silhouette is normal. The lungs are clear. No evidence of pleural effusion or pneumothorax. IMPRESSION: No acute chest disease. ACT 112: Negative or not required by law. Electronically signed by: Bernardo Gamez M.D. 07/12/2022 12:24 PM ECG Rate (beats per minute): 97 Rhythm: sinus rhythm Findings: + other (axis deviation) and + Q waves (Anterior, inferior) Supervising Physician Co-Signing Physician Notes I have seen and examined the patient and have discussed the case with the provider above. I agree with the assessment and plan as stated. 76-year-old man with a history of chronic hyponatremia who was recently taken off of urea supplementation, sodium bicarbonate for chronic intermittent metabolic acidosis, and who stopped salt tablets. Over the past week he has felt ill including weakness generally and fatigue. He also recently had his gabapentin decreased but reports no pain and denies nausea. He presents today with a sodium of 116 which was seen on outpatient lab work. Blood pressure was slightly low and he was given 1.5 L of normal saline around noon today. Sodium jase to 121 from 11 6. No additional IV fluids are being given. The patient denies any other significant symptoms at this time but still does not feel well generally. He denies any increased ostomy output. On physical exam he appears euvolemic with mucous membranes moist. Physical exam is otherwise unremarkable aside from a colostomy bag in the right lower abdomen. No gross focal neuromuscular deficits. Lab review reveals mild anemia with an H&H of 12 and 34, CHEM panel reveals a sodium of 121, potassium 3.3, chloride 85, CO2 27, BUN 60, creatinine 2.34. These labs were post IV fluid administration. Urine awesome's are low at 283, urine sodium is low less than 10 1. Hyponatremia 2. CKD stage IV 3. Crohn's disease status post colostomy Agree with monitoring sodium for now after fluid resuscitation and continuing 1.5 L fluid restriction. Additional supplementation with salt tablets or urea we would defer to nephrology who is consulted. Underlying CKD stage IV which is at baseline. Anemia likely of chronic disease present and stable. DO Anatoliy
[2022-07-12 15:12] LABS: Appearance Urine Clear (Clear); Bilirubin Urine Negative (Negative); Blood Urine Negative (Negative); Color Urine Yellow; Glucose Urine UA Negative (Negative); Ketones Urine Negative (Negative); Leukocyte Esterase Urine Negative (Negative); Nitrite Urine Negative (Negative); Protein Urine Negative (Negative); Specific Gravity Urine 1.011 (1.000-1.030); Urobilinogen Urine Negative (Negative); pH Urine 6.5 (4.5-7.5)
[2022-07-12 15:35] LABS: Sodium Random Urine < 10 mmol/L
--- NOTE | 2022-07-12 16:04 | Electrocardiogram Report ---
Test Reason : Blood Pressure : / mmHG Vent. Rate : 097 BPM Atrial Rate : 097 BPM P-R Int : 208 ms QRS Dur : 090 ms QT Int : 350 ms P-R-T Axes : 040 256 059 degrees QTc Int : 444 ms Normal sinus rhythm Right superior axis deviation Inferior infarct , age undetermined Anterior infarct (cited on or before 12-JUL-2022) Abnormal ECG When compared with ECG of 24-NOV-2021 18:42, Inferior infarct is now Present Confirmed by Dagoberto Simmons ([id number]) on 07/12/2022 4:04:29 PM Referred By: REFERRED SELF Confirmed By:Dagoberto Simmons
[2022-07-12 16:41] LABS: BUN Creatinine Ratio 25.6 (10-20); Calcium 8.3 mg/dl (8.6-10.3); Creatinine Clr Calc Pharmacy 25.2 ml/min; Est GFR (African American) 29.8 ml/min; Est GFR (Non-African American) 25.7 ml/min; Potassium 3.3 mmol/L (3.5-5.1)
[2022-07-12] MEDS ORDERED: POTASSIUM CHLORIDE CRTAB 20 MEQ TABCR PO STA (16:53)
[2022-07-12] MEDS ORDERED: ACETAMINOPHEN 325 MG TAB PO PRN (18:53)
[2022-07-12] MEDS ORDERED: LOPERAMIDE HCL 2 MG CAP PO PRN (18:53)
[2022-07-12] MEDS: HEPARIN SOD 5,000 UNIT/0.5 ML VIAL SQ SCH (20:15)
[2022-07-12] MEDS: CHOLESTYRAMINE LIGHT 4 GM PKT PO SCH (20:15)
[2022-07-12] MEDS: GABAPENTIN 300 MG CAP PO SCH (20:16)
[2022-07-12 23:06] LABS: BUN Creatinine Ratio 25.3 (10-20); Calcium 8.2 mg/dl (8.6-10.3); Creatinine Clr Calc Pharmacy 26.7 ml/min; Est GFR (African American) 31.9 ml/min; Est GFR (Non-African American) 27.5 ml/min; Potassium 3.4 mmol/L (3.5-5.1)
[2022-07-13 06:28] LABS: Hematocrit (blood only) 34.7 % (42.0-52.0); Hemoglobin 12.3 g/dl (14.0-18.0); Mean Corpuscular Hgb Conc 35.4 g/dL (32.0-36.0); Mean Corpuscular Volume 76.3 fL (80.0-100.0); Mean Platelet Volume 10.9 fL (9.4-12.4); Platelet Count 218 K/uL (130-400); RDW Coefficient of Variation 14.9 % (11.5-14.5); RDW Standard Deviation 40.6 fL (36.4-46.3); Red Blood Count 4.55 M/uL (4.70-6.10); White Blood Count 7.59 K/ul (4.8-10.8)
[2022-07-13 06:50] LABS: BUN Creatinine Ratio 25.5 (10-20); Calcium 9.3 mg/dl (8.6-10.3); Creatinine Clr Calc Pharmacy 26.6 ml/min; Est GFR (African American) 33.5 ml/min; Est GFR (Non-African American) 28.9 ml/min; Phosphorus 3.9 mg/dl (2.5-4.9)
[2022-07-13] MEDS: MULTIVITAMIN TAB PO SCH (08:26)
[2022-07-13] MEDS: GABAPENTIN 300 MG CAP PO SCH ×3 (08:26→20:29)
[2022-07-13] MEDS: HEPARIN SOD 5,000 UNIT/0.5 ML VIAL SQ SCH ×2 (08:26→20:29)
[2022-07-13] MEDS: allopurinoL 100 MG TAB PO SCH (08:26)
[2022-07-13] MEDS: CHOLECALCIFEROL 1,000 UNITS 25 MCG TAB PO SCH (08:26)
[2022-07-13] MEDS: CHOLESTYRAMINE LIGHT 4 GM PKT PO SCH ×3 (08:27→20:29)
[2022-07-13 10:23] LABS: BUN Creatinine Ratio 24.5 (10-20); Creatinine Clr Calc Pharmacy 26.6 ml/min; Est GFR (African American) 33.5 ml/min; Est GFR (Non-African American) 28.9 ml/min; Potassium 3.5 mmol/L (3.5-5.1)
[2022-07-13] MEDS ORDERED: POTASSIUM CHLORIDE CRTAB 20 MEQ TABCR PO STA (11:50)
[2022-07-13] MEDS: SODIUM CHLORIDE 0.9% 1000ML 1,000 ML IV SCH (13:10)
--- NOTE | 2022-07-13 13:25 | Consultation Report ---
NEPHROLOGY CONSULTATION NOTE REASON FOR CONSULTATION: Hyponatremia. HISTORY OF PRESENT ILLNESS: The patient is a 76-year-old male who was sent over by Nephrology, Dr. Claudia Polanco yesterday after outpatient labs showed sodium of 117. The patient has a history of hyponatremia and even was admitted in the hospital back in November 2021. Since then, he has been managed with urea as well as sodium bicarbonate tablet. The patient had a serum sodium of 136, 136 and 137 done within the last 2 months. His urea dose was tapered down from daily to every other day and stopped totally on 07/03/2022. Sodium bicarbonate was also stopped within the last few weeks. The patient also has chronic kidney disease with a baseline creatinine in the low to mid 2s for the last 6 months secondary to hypertension. He also has significant Crohn's disease s/p ileostomy status at this time with chronic high GI output. For the last few days, he has been feeling much weaker than usual and he also feels his GI output in the ileostomy was somewhat higher than usual, but he could not really be very specific. His blood pressure is chronically low and in the hospital also, it has been low with readings mostly in the 90s systolic. Urine osmolality was 283. Urine sodium was less than 10 and current creatinine and BUN is about baseline. He does not have any nausea, vomiting, chest pain, shortness of breath, orthopnea, or any other symptoms other than generalized weakness. Since being admitted, he had normal saline in the Emergency Department, but he is not getting anything at this point of time. He also got potassium 40 mEq. ALLERGIES: OXYCODONE. MEDICATIONS: Home medication list was reviewed in detail as discussed in the HPI. Urea was stopped on 07/03/2022. Sodium bicarbonate was stopped within the last few weeks and the dose of gabapentin was being tapered down. Other medication includes allopurinol, cholestyramine, tramadol, loperamide, multivitamin, vitamin D. PAST MEDICAL AND SURGICAL HISTORY: Includes Crohn's disease. No active Crohn's since proctocolectomy and status post ileostomy. He is not on any medication since 2009. GERD, hypertension, ileostomy present since 2007, metabolic acidosis. He is to be on sodium bicarbonate tablet, but not lately. History of uric acid kidney stone one time episode in 2010, chronic kidney disease stage IV, with a baseline creatinine in the low to mid 2s lately, appendicectomy, cataract surgery, cholecystectomy, inguinal hernia, status post proctocolectomy with permanent ileostomy in 2007. FAMILY HISTORY: Negative for renal disease or dialysis. Father did have ulcerative colitis. SOCIAL HISTORY: Former smoker, occasional alcohol. He is and lives with his . No oxygen. REVIEW OF SYSTEMS: As detailed in the HPI, other than generalized weakness for the last few days and slightly increased ileostomy output. He denies having any other symptoms. PHYSICAL EXAMINATION: GENERAL: Elderly white male who is not in any overt respiratory distress. He is awake, alert, oriented x3. He was able to give me a detailed account of his complicated medical history including accurate timelines. VITAL SIGNS: Blood pressure was 101/66, pulse rate 85, temperature 36.5, 96% on room air. HEENT: Mucous membrane is moist. NECK: Supple. No jugular venous distention. CHEST: Bilaterally clear to auscultation. CARDIOVASCULAR: S1 and S2, regular. ABDOMEN: Soft, nontender. EXTREMITIES: Show no edema. NEUROLOGIC: Awake, alert and oriented. Normal speech. LABORATORY TEST: Blood work: Sodium on admission was 116, as stated in HPI. He had a serum sodium of 137 as of 07/03/2022. Most recent sodium this morning 122, potassium 3.5, chloride 86, bicarbonate 25, BUN 52, creatinine 2.12. Urine osmolality 283. Urine sodium less than 10. Serum osmolality 262. Hemoglobin 12.3, WBC count 7.5, platelet count 218. Chest x-ray was unremarkable. ASSESSMENT AND PLAN: A 76-year-old male with history of chronic hyponatremia at least for the last 10 months or so. Now admitted because of abnormal labs showing a serum sodium of 116. I have been consulted for hyponatremia. Hyponatremia: This is quite complicated situation. He has chronic ileostomy with fairly high GI output causing significant electrolyte loss as expected, but then he also has hyponatremia. His urine sodium is less than 10 and he appears to be somewhat hypovolemic. At this time, I will manage him as hypovolemic hyponatremia with significant sodium loss in the GI tract. Sodium did improve substantially with the use of normal saline yesterday from 116 to 123. I would give him another 1 liter of normal saline. BMP will be done every 8 hours for now. Continue the current fluid restriction of 1500 mL. I am not planning to use either urea or sodium bicarbonate at this point. He is not quite fitting the profile of SIADH so I am not planning to use the urea for the time being. However as an outpatient while he was on urea sodium was normal and sodium dropped after urea was stopped. Whether the drop in sodium is result of stopping urea or secondary to increased GI loss in his ileostomy is hard to tell. Thank you very much for the consult. Job ID: [id number] [facility]OSPITALEloina
[2022-07-13 14:42] LABS: Anion Gap 8 (3-11); BUN Creatinine Ratio 23.9 (10-20); Blood Urea Nitrogen 49 mg/dl (6-23); Calcium 9.3 mg/dl (8.6-10.3); Carbon Dioxide 27 mmol/L (21-32); Chloride 87 mmol/L (98-107); Creatinine Clr Calc Pharmacy 27.5 ml/min; Est GFR (African American) 34.9 ml/min; Est GFR (Non-African American) 30.1 ml/min; Glucose 106 mg/dl (70-99(Fasting)); Sodium 122 mmol/L (136-145)
--- NOTE | 2022-07-13 16:41 | Hospitalist Progress Note ---
Date of Service July 13, 2022 Assessment & Plan (1) Acute hyponatremia: (2) Chronic hyponatremia: Plan: Acute on chronic hyponatremia-secondary to GI fluid loss through high ileostomy Patient is 76-year-old male with PMH chronic hyponatremia with recent discontinu ation of sodium bicarbonate and urea. Outpatient Na 137 on 07/03/2022, 136 on 06/05/2022. Today outpatient Na: 117 Complains of generalized weakness and fatigue Today in ER P: 113 down to 94, BP 97/62 up to 105/77 Na: 116 In ER given 1500 mL NSS Urine osmolality, serum serum osmolality, urine sodium, urine creatinine pending 1500ml fluid restriction for now pending further neprhology recommendations Nephrology consult-appreciate input and recommendation Sodium level is 122 today We will give another liter of normal saline IV Monitor PRP (3) Chronic kidney disease, stage IV (severe): Plan: Cr: 2.5. Baseline Cr: 2.3-2.7 per outpatient chart review Monitor renal functions, avoid nephrotoxic agents when possible Creatinine remains stable at 2.05 (4) HTN (hypertension): Plan: BPs have been running on the low side outpatient. Atenolol was tapered and di scontinued Monitor BP (5) Crohn's disease: Plan: S/P proctocolectomy and ileostomy Denies any increased stool output or increased liquid stool Continue Questran, Imodium as needed Has been having diarrhea through the ileostomy tube We will continue Questran and Imodium to control diarrhea (6) Nephrolithiasis: Plan: On allopurinol DVT Prophylaxis Heparin SQ Full Code as per discussion with pt Follows with Dr Whitlock for routine care Admission and Anticipated Discharge Date Admission Date: July 12, 2022 Subjective 07/13/2022 The patient was seen and examined in telemetry unit He has been complaining of weakness and noted to have frequent loose bowel movement through the ileostomy His sodium was noted to be 117 in the outpatient He did not have any other symptoms except weakness the sodium has been improving Review of Systems Review of Systems: All systems reviewed and are unremarkable except as noted below Physical Exam Physical Exam: Lying in bed comfortably Constitutional: + ill appearing and average body habitus Eyes: PERRL, conjunctivae normal, anicteric sclerae ENMT: external ear and nose normal, oropharynx normal Neck: trachea midline, no thyromegaly Respiratory: no respiratory distress Auscultation: lungs clear to auscultation bilaterally Cardiovascular: Rate/Rhythm: regular rate, regular rhythm and + tachycardic Heart Sounds: normal S1 and normal S2; no murmur Extremities: no edema Gastrointestinal (Abdomen): Inspection/Auscultation: normal bowel sounds; abdomen not distended Percussion/Palpation: abdomen soft; abdomen nontender Ileostomy site is intact Musculoskeletal: No acute arthritis involving any of the joint Neurologic: normal touch/pain/proprioception and moves all extremities; no focal motor deficits Results & Data Results & Data Vital Signs (Past 12 Hours) Vital Signs Temp Pulse Pulse Resp BP Pulse Ox O2 Del Method 07/13/22 16:00 103 H 07/13/22 14:01 94 H 07/13/22 12:34 36.3 C L 81 18 102/66 98 Room Air 07/13/22 08:45 36.5 C 85 18 101/66 96 Room Air 07/13/22 07:00 90 Laboratory Results Short CBC 07/13/22 Range/Units 05:51 WBC 7.59 (4.8-10.8) K/ul Hgb 12.3 L (14.0-18.0) g/dl Hct 34.7 L (42.0-52.0) % Plt Count 218 (130-400) K/uL [facility] 07/12/22 07/12/22 07/13/22 16:06 22:20 05:51 Sodium 121 L 121 L 123 L Potassium 3.3 L 3.4 L 4.0 Chloride 85 L 87 L 88 L Carbon Dioxide 27 26 25 BUN 60 H 56 H 54 H Creatinine 2.34 H 2.21 H 2.12 H Glucose 96 119 H 99 Calcium 8.3 L 8.2 L 9.3 07/13/22 07/13/22 07/13/22 09:52 12:19 15:00 Sodium 122 L 122 L Potassium 3.5 TNP 3.6 Chloride 86 L 87 L Carbon Dioxide 25 27 BUN 52 H 49 H Creatinine 2.12 H 2.05 H Glucose 144 H 106 H Calcium 9.0 9.3 Medications Administered Current Inpatient Medications Acetaminophen (Acetaminophen 325 Mg Tab) 650 mg PO Q4H PRN PRN Reason: Pain or Fever Stop: 08/11/22 18:52 Allopurinol (Allopurinol 100 Mg Tab) 200 mg PO DAILY [facility] Stop: 08/12/22 08:59 Last Admin: 07/13/22 08:26 Dose: 200 mg Cholestyramine Resin (Cholestyramine Light 4 Gm Pkt) 4 gm PO TID [facility] Stop: 08/11/22 20:59 Last Admin: 07/13/22 13:10 Dose: 4 gm Gabapentin (Gabapentin 300 Mg Cap) 300 mg PO TID [facility] Stop: 08/11/22 20:59 Last Admin: 07/13/22 13:11 Dose: 300 mg Heparin Sodium (Porcine) (Heparin Sod 5,000 Unit/0.5 Ml Vial) 5,000 units SQ Q12 [facility] Stop: 08/11/22 20:59 Last Admin: 07/13/22 08:26 Dose: 5,000 units Sodium Chloride (Nss 1000ml) 1,000 mls @ 80 mls/hr IV .[id number] [facility] Stop: 08/12/22 11:59 Last Admin: 07/13/22 13:10 Dose: 80 mls/hr Loperamide HCl (Loperamide Hcl 2 Mg Cap) 2 mg PO QID PRN PRN Reason: Diarrhea Stop: 08/11/22 18:52 Multivitamins (Multivitamin Tab) 1 tab PO DAILY [facility] Stop: 08/12/22 08:59 Last Admin: 07/13/22 08:26 Dose: 1 tab Vitamin D (Cholecalciferol 1,000 Units 25 Mcg Tab) 2,000 units PO DAILY [facility] Stop: 08/12/22 08:59 Last Admin: 07/13/22 08:26 Dose: 2,000 units
[2022-07-13 21:41] LABS: BUN Creatinine Ratio 22.4 (10-20); Calcium 8.8 mg/dl (8.6-10.3); Creatinine Clr Calc Pharmacy 25.7 ml/min; Est GFR (African American) 32.2 ml/min; Est GFR (Non-African American) 27.8 ml/min; Potassium 3.7 mmol/L (3.5-5.1)
[2022-07-14] MEDS: SODIUM CHLORIDE 0.9% 1000ML 1,000 ML IV SCH ×3 (02:31→23:32)
[2022-07-14 04:39] LABS: Basophils # (auto) 0.05 K/uL (0-0.2); Basophils % (auto) 0.9 %; Eosinophils # (auto) 0.17 K/uL (0-0.50); Eosinophils % (auto) 3.1 %; Hematocrit (blood only) 32.4 % (42.0-52.0); Immature Granulocytes # (auto) 0.02 K/uL (0.01-0.20); Immature Granulocytes % (auto) 0.4 %; Lymphocytes # (auto) 1.39 K/uL (1.2-3.4); Lymphocytes % (auto) 25.4 %; Mean Corpuscular Hemoglobin 26.6 pg (25.0-34.0); Mean Corpuscular Volume 78.5 fL (80.0-100.0); Mean Platelet Volume 10.6 fL (9.4-12.4); Monocytes # (auto) 0.72 K/uL (0.11-0.59); Monocytes % (auto) 13.1 %; Neutrophils # (auto) 3.13 K/uL (1.40-6.50); Neutrophils % (auto) 57.1 %; Platelet Count 168 K/uL (130-400); RDW Coefficient of Variation 15.1 % (11.5-14.5); RDW Standard Deviation 42.6 fL (36.4-46.3); Red Blood Count 4.13 M/uL (4.70-6.10); White Blood Count 5.48 K/ul (4.8-10.8)
[2022-07-14 04:44] LABS: Calcium 9.1 mg/dl (8.6-10.3); Creatinine Clr Calc Pharmacy 25.3 ml/min; Est GFR (African American) 31.5 ml/min; Est GFR (Non-African American) 27.2 ml/min; Magnesium 1.8 mg/dl (1.7-2.4); Phosphorus 3.4 mg/dl (2.5-4.9); Potassium 3.9 mmol/L (3.5-5.1)
--- NOTE | 2022-07-14 06:09 | Electrocardiogram Report ---
Test Reason : Blood Pressure : / mmHG Vent. Rate : 090 BPM Atrial Rate : 090 BPM P-R Int : 194 ms QRS Dur : 094 ms QT Int : 378 ms P-R-T Axes : 037 241 055 degrees QTc Int : 462 ms Normal sinus rhythm Inferior infarct (cited on or before 12-JUL-2022) Anterior infarct (cited on or before 12-JUL-2022) Abnormal ECG When compared with ECG of 12-JUL-2022 12:14, Nonspecific T wave abnormality now evident in Anterior leads Confirmed by Cesar Emerson ([id number]) on 07/14/2022 6:08:40 AM Referred By: REFERRED SELF Confirmed By:Cesar Emerson
[2022-07-14] MEDS: GABAPENTIN 300 MG CAP PO SCH ×3 (08:26→20:00)
[2022-07-14] MEDS: MULTIVITAMIN TAB PO SCH (08:27)
[2022-07-14] MEDS: allopurinoL 100 MG TAB PO SCH (08:27)
[2022-07-14] MEDS: CHOLECALCIFEROL 1,000 UNITS 25 MCG TAB PO SCH (08:27)
[2022-07-14] MEDS: HEPARIN SOD 5,000 UNIT/0.5 ML VIAL SQ SCH ×2 (08:27→20:00)
[2022-07-14] MEDS: CHOLESTYRAMINE LIGHT 4 GM PKT PO SCH ×3 (08:27→20:00)
[2022-07-14] MEDS: LOPERAMIDE HCL 2 MG CAP PO SCH ×3 (09:11→20:00)
--- NOTE | 2022-07-14 10:10 | Nephrology Progress Note ---
Date of Service July 14, 2022 Assessment & Plan Admission and Anticipated Discharge Date Admission Date: July 12, 2022 Subjective S---Na improving nicely with NS. No new issues. PHYSICAL EXAMINATION: GENERAL: Elderly white male who is not in any overt respiratory distress. He is awake, alert, oriented x3. He was able to give me a detailed account of his complicated medical history including accurate timelines. HEENT: Mucous membrane is moist. NECK: Supple. No jugular venous distention. CHEST: Bilaterally clear to auscultation. CARDIOVASCULAR: S1 and S2, regular. ABDOMEN: Soft, nontender. EXTREMITIES: Show no edema. NEUROLOGIC: Awake, alert and oriented. Normal speech. LABORATORY TEST: Blood work: Sodium on admission was 116. Now 127. Chest x-ray was unremarkable. ASSESSMENT AND PLAN: A 76-year-old male with history of chronic hyponatremia at least for the last 10 months or so. Now admitted because of abnormal labs showing a serum sodium of 116. I have been consulted for hyponatremia. Hyponatremia: This is quite complicated situation. He has chronic ileostomy with fairly high GI output causing significant electrolyte loss as expected, but then he also has hyponatremia. His urine sodium is less than 10 and he appears to be somewhat hypovolemic. At this time, I will manage him as hypovolemic hyponatremia with significant sodium loss in the GI tract. Sodium did improve substantially with the use of normal saline yesterday from 116 to 123 and now 127. I would give him another 1 liter of normal saline today. . BMP will be done every 12 hours for now. Continue the current fluid restriction of 1500 mL.He is not fitting the profile of SIADH so I am not planning to use the urea for the time being. However as an outpatient while he was on urea sodium was normal and sodium dropped after urea was stopped. Whether the drop in sodium is result of stopping urea or secondary to increased GI loss in his ileostomy is hard to tell. na rising nicely with NS so continue same for now. Creat seems stuck in baseline of low 2's. BMP q12. repeat urine Osm and Urine na today Results & Data Vital Signs (Past 12 Hours) Vital Signs Temp Pulse Pulse Resp BP Pulse Ox O2 Del Method 07/14/22 07:00 90 07/14/22 08:04 36.4 C L 94 H 20 100/65 95 Room Air 07/14/22 03:12 36.6 C 94 H 18 92/56 L 94 Room Air 07/13/22 23:45 36.6 C 99 H 20 94/59 L 96 Room Air
--- NOTE | 2022-07-14 15:31 | Hospitalist Progress Note ---
Date of Service July 14, 2022 Assessment & Plan (1) Acute hyponatremia: (2) Chronic hyponatremia: Plan: Acute on chronic hyponatremia-secondary to GI fluid loss through high ileostomy Patient is 76-year-old male with PMH chronic hyponatremia with recent discontinu ation of sodium bicarbonate and urea. Outpatient Na 137 on 07/03/2022, 136 on 06/05/2022. Today outpatient Na: 117 Complains of generalized weakness and fatigue Today in ER P: 113 down to 94, BP 97/62 up to 105/77 Na: 116 In ER given 1500 mL NSS Urine osmolality, serum serum osmolality, urine sodium, urine creatinine pending 1500ml fluid restriction for now pending further neprhology recommendations Nephrology consult-appreciate input and recommendation Sodium level is 122 today We will give another liter of normal saline IV Monitor PRP-sodium level is up to 127 Seems to be secondary to hypovolemia on top of GI loss Imodium has been given to control diarrhea and he will have another liter of normal saline infusion today as per nephrology We will check PRP tomorrow-likely discharge tomorrow (3) Chronic kidney disease, stage IV (severe): Plan: Cr: 2.5. Baseline Cr: 2.3-2.7 per outpatient chart review Monitor renal functions, avoid nephrotoxic agents when possible Creatinine remains stable at 2.05 (4) HTN (hypertension): Plan: BPs have been running on the low side outpatient. Atenolol was tapered and discontinued Monitor BP (5) Crohn's disease: Plan: S/P proctocolectomy and ileostomy Denies any increased stool output or increased liquid stool Continue Questran, Imodium as needed Has been having diarrhea through the ileostomy tube We will continue Questran and Imodium to control diarrhea He takes 3-4 Imodium 80 up to twice a day for diarrhea at home (6) Nephrolithiasis: Plan: On allopurinol DVT Prophylaxis Heparin SQ Full Code as per discussion with pt Follows with Dr Whitlock for routine care Admission and Anticipated Discharge Date Admission Date: July 12, 2022 Subjective 07/13/2022 The patient was seen and examined in telemetry unit He has been complaining of weakness and noted to have frequent loose bowel movement through the ileostomy His sodium was noted to be 117 in the outpatient He did not have any other symptoms except weakness the sodium has been improving 07/14/2022 The patient was seen and examined in telemetry unit He has been feeling much better today and his sodium has been at 126 Continues to have loose stool We will give Imodium to control diarrhea and he will have intravenous fluid for dehydration Review of Systems Review of Systems: All systems reviewed and are unremarkable except as noted below Physical Exam Physical Exam: Sitting at the side of the bed without any acute distress Constitutional: + ill appearing and average body habitus Eyes: PERRL, conjunctivae normal, anicteric sclerae ENMT: external ear and nose normal, oropharynx normal Neck: trachea midline, no thyromegaly Respiratory: no respiratory distress Auscultation: lungs clear to auscultation bilaterally Cardiovascular: Rate/Rhythm: regular rate, regular rhythm and + tachycardic Heart Sounds: normal S1 and normal S2; no murmur Extremities: no edema Gastrointestinal (Abdomen): Inspection/Auscultation: normal bowel sounds; abdomen not distended Percussion/Palpation: abdomen soft; abdomen nontender Musculoskeletal: No acute arthritis involving any of the joints Neurologic: normal touch/pain/proprioception and moves all extremities; no focal motor deficits Psychiatric: A+Ox3, euthymic affect Results & Data Results & Data Vital Signs (Past 12 Hours) Vital Signs Temp Pulse Pulse Resp BP Pulse Ox O2 Del Method 07/14/22 11:22 36.4 C L 98 H 19 96/63 L 96 Room Air 07/14/22 07:00 90 07/14/22 08:04 36.4 C L 94 H 20 100/65 95 Room Air Laboratory Results Short CBC 07/14/22 Range/Units 03:59 WBC 5.48 (4.8-10.8) K/ul Hgb 11.0 L (14.0-18.0) g/dl Hct 32.4 L (42.0-52.0) % Plt Count 168 (130-400) K/uL BMP 07/13/22 07/14/22 20:45 03:59 Sodium 126 L 127 L Potassium 3.7 3.9 Chloride 91 L 92 L Carbon Dioxide 26 25 BUN 49 H 49 H Creatinine 2.19 H 2.23 H Glucose 116 H 101 H Calcium 8.8 9.1 Medications Administered Current Inpatient Medications Acetaminophen (Acetaminophen 325 Mg Tab) 650 mg PO Q4H PRN PRN Reason: Pain or Fever Stop: 08/11/22 18:52 Allopurinol (Allopurinol 100 Mg Tab) 200 mg PO DAILY [facility] Stop: 08/12/22 08:59 Last Admin: 07/14/22 08:27 Dose: 200 mg Cholestyramine Resin (Cholestyramine Light 4 Gm Pkt) 4 gm PO TID [facility] Stop: 08/11/22 20:59 Last Admin: 07/14/22 15:20 Dose: 4 gm Gabapentin (Gabapentin 300 Mg Cap) 300 mg PO TID [facility] Stop: 08/11/22 20:59 Last Admin: 07/14/22 15:21 Dose: 300 mg Heparin Sodium (Porcine) (Heparin Sod 5,000 Unit/0.5 Ml Vial) 5,000 units SQ Q12 [facility] Stop: 08/11/22 20:59 Last Admin: 07/14/22 08:27 Dose: 5,000 units Sodium Chloride (Nss 1000ml) 1,000 mls @ 80 mls/hr IV .[id number] [facility] Stop: 08/13/22 10:44 Last Admin: 07/14/22 12:11 Dose: 80 mls/hr Loperamide HCl (Loperamide Hcl 2 Mg Cap) 2 mg PO QID PRN PRN Reason: Diarrhea Stop: 08/11/22 18:52 Loperamide HCl (Loperamide Hcl 2 Mg Cap) 4 mg PO TID [facility] Stop: 08/13/22 08:59 Last Admin: 07/14/22 15:21 Dose: 4 mg Multivitamins (Multivitamin Tab) 1 tab PO DAILY [facility] Stop: 08/12/22 08:59 Last Admin: 07/14/22 08:27 Dose: 1 tab Vitamin D (Cholecalciferol 1,000 Units 25 Mcg Tab) 2,000 units PO DAILY [facility] Stop: 08/12/22 08:59 Last Admin: 07/14/22 08:27 Dose: 2,000 units
[2022-07-15 05:39] LABS: Calcium 8.6 mg/dl (8.6-10.3); Potassium 3.3 mmol/L (3.5-5.1)
[2022-07-15 05:44] LABS: BUN Creatinine Ratio 22.4 (10-20); Creatinine Clr Calc Pharmacy 24.2 ml/min; Est GFR (African American) 32.2 ml/min; Est GFR (Non-African American) 27.8 ml/min
[2022-07-15] MEDS: GABAPENTIN 300 MG CAP PO SCH (08:22)
[2022-07-15] MEDS: LOPERAMIDE HCL 2 MG CAP PO SCH (08:22)
[2022-07-15] MEDS: MULTIVITAMIN TAB PO SCH (08:23)
[2022-07-15] MEDS: allopurinoL 100 MG TAB PO SCH (08:23)
[2022-07-15] MEDS: CHOLECALCIFEROL 1,000 UNITS 25 MCG TAB PO SCH (08:23)
[2022-07-15] MEDS: HEPARIN SOD 5,000 UNIT/0.5 ML VIAL SQ SCH (08:23)
[2022-07-15] MEDS: CHOLESTYRAMINE LIGHT 4 GM PKT PO SCH (08:23)
[2022-07-15] MEDS ORDERED: POTASSIUM CHLORIDE CRTAB 20 MEQ TABCR PO SCH (09:00)
--- NOTE | 2022-07-15 09:12 | Nephrology Progress Note ---
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 Sodium is stable at 127. Patient has been receiving normal saline since admission. Sodium improved from 16-03 17. Patient is interested in going home. He has urea at home. -From renal standpoint patient can be discharged to continue urea 15 g daily with repeat BMP in 1 to 2 weeks. He will follow-up with outpatient nephrology. (2) Chronic kidney disease, stage IV (severe): Plan: Patient with CKD stage IIIb baseline creatinine in the lower twos. Creatinine is stable. K is 3.3 likely in setting of diarrhea. Patient can be discharged on 10 mEq of potassium chloride daily. I gave him 40 mEq today Admission and Anticipated Discharge Date Admission Date: July 12, 2022 Subjective Seen in follow-up for hyponatremia. He feels better today. No shortness of breath. Output from the ileostomy is stable. Patient is interested in going home Review of Systems Review of Systems: All other systems were reviewed and negative except as noted in HPI Physical Exam Physical Exam: General exam: Appears comfortable, no acute distress HEENT: Pupils are equal and reactive to light Neck: No JVD, neck is supple trachea is midline Respiratory system: Clear breath sounds bilaterally. Gastrointestinal: Abdomen is soft, non distended, non tender, bowel sounds are present CVS: Regular rate and rhythm. No murmurs, rubs or gallops Musculoskeletal: No joint or muscle tenderness Extremities: Non tender, no edema, peripheral pulses are present Neuro: Oriented, no tremors, no focal neurological deficits Skin: No rashes Results & Data Vital Signs (Past 12 Hours) Vital Signs Temp Pulse Pulse Resp BP Pulse Ox O2 Del Method 07/15/22 08:33 36.6 C 89 20 98/63 L 97 Room Air 07/15/22 07:00 78 07/15/22 03:43 36.5 C 84 17 96/63 L 97 Room Air 07/14/22 22:32 88 07/14/22 22:41 36.6 C 90 17 100/65 96 Room Air Laboratory Results 07/15/22 04:34
--- NOTE | 2022-07-15 12:08 | Discharge Summary ---
Date of Service July 15, 2022 Admission HPI Per Admitting Provider Patient is 76-year-old male with PMH chronic hyponatremia, HTN, nephrolithiasis, Crohn's s/p proctocolectomy and ileostomy, CKD IV presented to ER for abnormal outpatient labs. Patient with history of chronic hyponatremia. Nephrology stopped Sodium bicarbonate in May 2022 and stopped urea on 07/03/2022. His sodiums have been 136-137 in May and June. Had repeat labs today secondary to recent medication changes and had outpatient lab with sodium of 117 and was referred to ER for further evaluation and treatment. Patient states for the last couple weeks he has been having generalized weakness and fatigue. States he tires with minimal exertion. He states in the mornings when getting out of bed he has some lightheadedness. Denies any syncope. Patient is on fluid restriction of 48 ounces water daily. He states he has been following this and he sometimes has 4 ounces of lemonade or tea a couple times a week as well. He states he is waiting on his dentures and partial so for the last 9 months has been eating soft and liquid foods and has lost 25 pounds. Denies other OTC medication use. Denies ETOH use. Denies any increased output of stool in colostomy bag. Denies fever/chills, diaphoresis, nausea, vomiting, hematemesis, melena, CASH, vision changes, neck pain, CP, SOB, palpitations, cough, sore throat, rhinorrhea, abdominal pain, paresthesias, extremity edema, rashes, urinary symptoms. Admission Exam Per Admitting Provider General: no distress, WDWN Head: normocephalic, atraumatic Eyes: conjunctiva non-injected, anicteric ENT: normal inspection external ears, nose, mucous membranes slightly dry Neck: supple, trachea midline Lungs: clear, no respiratory distress, no wheezing/rhonchi/rales CV: RRR, no murmur, no pretibial edema Abd: normal BS, soft, non-tender Ext: no cyanosis, no calf tenderness Neuro: A&O x 3, no focal deficits noted, normal affect Skin: warm, dry Principal Diagnosis Acute on chronic hyponatremia History of Crohn's disease with intermittent diarrhea Discharge Exam Gen: WD/WN, Tall, NAD, A&O x3 HEENT: Normocephalic, atraumatic, conjunctivae moist, sclerae anicteric, mucous membranes moist. Lung: Clear to Auscultation bilaterally, no wheezes/rales/rhonchi Heart: Regular rate, regular rhythm, no murmurs, rubs, or gallops Abdomen: Soft, NT, ND +BS x 4, RLQ Ileostomy with normal output Extremities: No edema Skin: Warm, no rash, negative turgor. Discharge Data Allergies Allergy/AdvReac Type Severity Reaction Status Date / Time oxycodone AdvReac Intermediate MENTAL Verified 11/24/21 19:31 STATUS CHANGES, HALLUCINATIONS Consultations 07/12/22 14:02 ED Decision to Admit Stat 07/12/22 14:56 Consult Nephrology Routine Hospital Course (1) Acute hyponatremia: (2) Chronic hyponatremia: Per prior attending with addendum: Acute on chronic hyponatremia-secondary to GI fluid loss through high ileostomy Patient is 76-year-old male with PMH chronic hyponatremia with recent discontinuation of sodium bicarbonate and urea. Outpatient Na 137 on 07/03/2022, 136 on 06/05/2022. Today outpatient Na: 117 Complains of generalized weakness and fatigue Today in ER P: 113 down to 94, BP 97/62 up to 105/77 Na: 116 In ER given 1500 mL NSS Urine osmolality, serum serum osmolality, urine sodium, urine creatinine pending 1500ml fluid restriction for now pending further neprhology recommendations Nephrology consult-appreciate input and recommendation Sodium level is 122 today We will give another liter of normal saline IV Monitor PRP-sodium level is up to 127 Seems to be secondary to hypovolemia on top of GI loss Imodium has been given to control diarrhea and he will have another liter of normal saline infusion today as per nephrology We will check PRP tomorrow-likely discharge tomorrow (3) Chronic kidney disease, stage IV (severe): Cr: 2.5. Baseline Cr: 2.3-2.7 per outpatient chart review Monitor renal functions, avoid nephrotoxic agents when possible Creatinine remains stable at 2.05 (4) HTN (hypertension): BPs have been running on the low side outpatient. Atenolol was tapered and discontinued Monitor BP (5) Crohn's disease: S/P proctocolectomy and ileostomy Denies any increased stool output or increased liquid stool Continue Questran, Imodium as needed Has been having diarrhea through the ileostomy tube We will continue Questran and Imodium to control diarrhea He takes 3-4 Imodium 80 up to twice a day for diarrhea at home (6) Nephrolithiasis: On allopurinol DVT Prophylaxis Heparin SQ Full Code as per discussion with pt Follows with Dr Whitlock for routine care Plan Addendum: Patient reports improving bowel output, is needing Imodium. Patient to continue to use Imodium and Questran as prior. Discussed with nephrology, sodium level stable and low around 127 which is closer to his baseline. Patient to continue with urea 15 g daily on discharge, get BMP in 1 to 2 weeks and follo w-up with nephrology in 2 to 4 weeks. Patient to follow-up with PCP in 1 week upon discharge. Patient discharged on small dose of potassium supplement due to ongoing loose stools/GI output which needs to be monitored as an outpatient and the supplement dose needs to be adjusted as appropriate. Patient aware. Patient hemodynamically stable, denies any weakness or dizziness and reports his activity/strength at his baseline. He would like to go home. He is being discharged with following instruction at the point of discharge: Follow-up with your primary care physician within a week time and likely you will need labs CBC/CMP/magnesium/phosphorus. Follow-up with your nephrology in 2 to 4 weeks time. You will need BMP done in 1 to 2 weeks, coordinate with your PCP office or nephrology office. Take urea 15 g daily and potassium 10 mEq daily. Take your medications as prescribed. Home Health Attestation I certify that this patient is under my care and that I, or a physicians entry level marketing assistant working with me, had a face to-face encounter that meets the home health [id number] encounter requirements with this patient. The encounter with the patient was in whole, or in part, for the following medical condition, which is the primary reason for home health care (list medical condition): I certify that, based on my findings, the following services are medically necessary home health services: My clinical findings support the need for the above services because: Further, I certify that my clinical findings support that this patient is homebound (i.e. absences from home require considerable and taxing effort and are for medical reasons or yazidism services or infrequently or of short duration when for other reasons) because: Certification for Home Health Services: Based on the above findings, I certify that this patient is confined to the home and needs intermittent long term care, physical therapy and/or speech therapy or continues to need occupational therapy. The patient is under my care, and I have initiated the establishment of the plan of care. This patient will be followed by a physician who will periodically review the plan of care. Total Time Total Time Spent Total Time Spent (In Minutes): 45 Discharge Plan Discharge Items Patient Disposition: Home - Self-Care Reason For Visit: HYPONATREMIA Discharge Diagnosis: Acute on chronic hyponatremia History of Crohn's disease with intermittent diarrhea Activity: Resume your previous activity Non-emergency contact: Primary Care Provider Call non-emergency contact if: you have any medication questions, your symptoms worsen and your temperature is above 101 Follow-up/Referrals: Neil Whitlock DO [Primary Care Provider] - (Date & Time 07/21/2022 10:40 AM Provider Ian Mon DO Department [facility] ) Diet: Regular Fluids: 1500ml (6 cups) Diet Texture: Easy to Chew Addtl Attending Provider Instructions: Follow-up with your primary care physician within a week time and likely you will need labs CBC/CMP/magnesium/phosphorus. Follow-up with your nephrology in 2 to 4 weeks time. You will need BMP done in 1 to 2 weeks, coordinate with your PCP office or nephrology office. Take urea 15 g daily and potassium 10 mEq daily. Take your medications as prescribed. Pending Studies at Discharge: No Stand-Alone Forms: My [facility] [employer], Smoking Cessation Medications and DC Order Prescriptions: New potassium chloride 10 mEq capsule, extended release 10 meq PO DAILY Qty: 30 0RF urea 15 gram powder in packet 1 packet PO DAILY Qty: 30 0RF Continued tramadol 50 mg tablet 50 mg PO Q6H PRN (Reason: Pain) triamcinolone acetonide 0.1 % cream 0.1 applic TOPICAL BID Rx Instructions: Apply to affected area on low back gabapentin 300 mg capsule 300 mg PO TID cholecalciferol (vitamin D3) [Vitamin D3] 50 mcg (2,000 unit) Capsule 2,000 unit PO DAILY allopurinol 100 mg tablet 200 mg PO DAILY cholestyramine (with sugar) 4 gram powder in packet 1 ea PO TID multivitamin Tablet 1 tab PO DAILY loperamide 2 mg Capsule 2 mg PO QID PRN (Reason: Diarrhea) Discharge Orders: Discharge Order (Routine); Ordered 07/15/22 Ordered By: Reyna Powell Admission Data Admit Date/Time: 07/12/22 14:41 Attending Provider: Reyna Powell Admit Provider: Rosalba Cope Primary Care Provider: Neil Whitlock Other Providers: Rosalba Cope ; Edgardo Ferreira
== END 2022-07-15 13:20 | disposition home or self-care (01) | DRG 641 ==
LOC: ED 11:24 → 4W 14:41 → SUATTDRO 14:41 → 4W 17:53